=== PATIENT | female | born 1970 | race Two or more races ===

== ENCOUNTER → 2020-09-30 10:34 | Outpatient (BNVA) | payer OTHER, SELFPAY | PROVIDERS: PCP Internal Medicine; Referring Provider Internal Medicine; Visit Provider Surgery | DX: Z76.89 Persons encountering health services in other specified circumstances (principal) ==

== ENCOUNTER 2020-10-29 08:29 | Outpatient (REF) | payer OTHER, SELFPAY ==
[2020-10-29 09:51] LABS: MANUAL DIFF FLAG NO
[2020-10-29 09:55] LABS: Basophils Absolute Auto 0.1 X10*3/uL (0.0-0.2); Basophils Percent Auto 0.6 % (0-2); Eosinophils Absolute Auto 0.5 X10*3/uL (0.0-0.4); Eosinophils Percent Auto 5.4 % (0-4); Hematocrit 34.9 % (37-47); Hemoglobin 11.3 g/dl (12.0-16.0); Imm Gran Abs Auto 0.04 X10*3/uL (0.00-0.03); Imm Gran Pct Auto 0.4 % (0.0-0.4); Lymphocytes Absolute Auto 4.7 X10*3/uL (1.2-4.9); Lymphocytes Percent Auto 48.5 % (20-40); Mean Corpuscular HGB Conc 32.4 g/dl (31.0-35.0); Mean Corpuscular Hemoglobin 28.6 pg (27.0-33.0); Mean Corpuscular Volume 88.4 fL (80-98); Mean Platelet Volume 8.8 fL (9.4-12.3); Monocytes Absolute Auto 0.7 X10*3/uL (0.1-1.2); Monocytes Percent Auto 7.3 % (2-11); NRBC Pct Auto 0.5 /100WBC (0.0-0.2); Neutrophils Absolute Auto 3.7 X10*3/uL (2.0-8.3); Neutrophils Percent Auto 37.8 % (45-73); Platelet Count 408 X10*3/uL (160-400); Red Blood Count 3.95 X10*6/uL (4.20-5.50); White Blood Count 9.8 X10*3/uL (4.8-10.8)
[2020-10-29 10:05] LABS: Glucose Urine UA NEG (NEG); Leukocyte Esterase Urine TRACE (NEG); Nitrite Urine NEG (NEG); Specific Gravity - Urine >= 1.030 (1.005-1.025); Urine Blood 3+ (NEG); Urine Ketones NEG (NEG); Urine Protein NEG (NEG-TRACE)
[2020-10-29 10:08] LABS: Appearance Urine HAZY; Color Urine YELLOW
[2020-10-29 10:12] LABS: Bacteria Urine 1+ /LPF; Mucus Urine 3+ /LPF; Squamous Epithelial Cell Urine 2+ /LPF
[2020-10-29 10:31] LABS: Albumin Level 4.1 g/dL (3.5-5.0); Anion Gap 10 (12-20); Blood Urea Nitrogen 12 mg/dL (9-16); Calcium 9.1 mg/dL (8.4-10.2); Carbon Dioxide 32 mmol/L (22-29); Chloride 105 mmol/L (96-108); Estimated Glomerular Filt Rate > 60; Magnesium 1.9 mg/dL (1.6-2.6); Phosphorus 3.8 mg/dL (2.7-4.5); Potassium 4.5 mmol/l (3.3-5.1); Sodium 142 mmol/L (135-145)
[2020-10-29 10:34] LABS: Creatinine Urine 170.97 mg/dL; Microalbum/Creatinine Ratio Ur 45.6 ug/mg cr
[2020-10-29 10:35] LABS: Creatinine Urine 170.12 mg/dL; Protein/Creatinine Ratio, Ur 0.12 (<0.2); Total Protein Urine Random 21 mg/dL (<12)
[2020-10-29 10:50] LABS: Vitamin D 25-OH Total 26.8 ng/mL (>30)
[2020-10-29 11:55] LABS: Uric Acid 5.4 mg/dL (2.4-5.7)
[2020-10-29 14:20] LABS: Renal w Reflex Lab Use Only Order verified
[2020-10-30 18:43] LABS: Calcium (PTHI) 9.3 mg/dL (8.6-10.2); PTHI 41 pg/mL (14-64)
== END 2020-10-29 08:30 | disposition home or self-care (01) ==
LOC: HO.LAB 08:29
PROVIDERS: PCP Internal Medicine; Visit Provider Internal Medicine Nephrology
DX: E78.00 Pure hypercholesterolemia, unspecified (principal); R80.9 Proteinuria, unspecified; D64.9 Anemia, unspecified
CPT/HCPCS: 36415; 80051; 81001; 82040; 82043; 82306; 82310; 82565; 83735; 83970; 84100; 84156; 84520; 84550; 85025

== ENCOUNTER 2020-12-04 09:50 | Outpatient (REF) | payer OTHER, SELFPAY ==
[2020-12-04 11:03] LABS: Alanine Aminotransferase 12 U/L (0-31); Albumin Level 4.1 g/dL (3.5-5.0); Alkaline Phosphatase 45 U/L (39-117); Aspartate Amino Transferase 12 U/L (5-31); Bilirubin Direct < 0.2 mg/dL (0.0-0.5); Bilirubin Total 0.2 mg/dL (0.0-1.0)
[2020-12-13 19:32] LABS: JCV Antibody INDETERMINATE; JCV Index Value 0.23
[2020-12-13 19:57] LABS: JCV Ab Inhibition FINAL RSLT: NEGATIVE
== END 2020-12-04 09:51 | disposition home or self-care (01) ==
LOC: HO.LAB 09:50
PROVIDERS: PCP Internal Medicine; Visit Provider Psychiatry & Neurology Neurology
DX: G35 Multiple sclerosis (principal)
CPT/HCPCS: 36415; 80076; 86711

== ENCOUNTER 2020-12-18 10:21 | Outpatient (REF) | payer OTHER, SELFPAY ==
--- NOTE | 2020-12-18 10:26 | XR_ITS ---
EXAMINATION: XR ANKLE, LEFT CLINICAL INFORMATION: Pain in the left ankle COMPARISON: None TECHNIQUE: AP, lateral, and mortise views of the left ankle. FINDINGS: There is mild spurring along the tip of medial malleolus likely old injury. The ankle mortise and subtalar joints are normal. There is bimalleolar soft tissue swelling. No visible fracture or dislocation seen. There is a small calcaneal heel enthesophyte. The soft tissues are normal. XR/XR ankle LT 2V IMPRESSION: 1. Mild spurring along the tip of medial malleolus and a small calcaneal heel enthesophyte. No visible acute fracture, dislocation, or subluxation seen. 2. Mild bimalleolar soft tissue swelling likely ligamentous injury.
== END 2020-12-18 10:22 | disposition home or self-care (01) ==
LOC: HO.XRAY 10:21
PROVIDERS: PCP Internal Medicine; Visit Provider Internal Medicine
DX: M25.572 Pain in left ankle and joints of left foot (principal)
CPT/HCPCS: 73600

== ENCOUNTER 2020-12-25 14:20 | Outpatient (REF) | payer OTHER, SELFPAY | END 2020-12-25 14:21 | disposition home or self-care (01) | LOC: HO.LAB 14:20 | PROVIDERS: Visit Provider Internal Medicine | DX: Z20.822 Contact with and (suspected) exposure to COVID-19 (principal) | CPT/HCPCS: 36415; C9803; U0003 ==

== ENCOUNTER 2021-01-26 13:21 | Outpatient (REF) | payer OTHER, SELFPAY | END 2021-01-26 13:22 | disposition home or self-care (01) | LOC: HO.LAB 13:21 | PROVIDERS: Visit Provider Internal Medicine | DX: Z20.822 Contact with and (suspected) exposure to COVID-19 (principal) | CPT/HCPCS: 36415; C9803; U0003; U0005 ==

== ENCOUNTER 2021-03-04 14:12 | Outpatient (REF) | payer OTHER, SELFPAY | END 2021-03-04 14:13 | disposition home or self-care (01) | LOC: HO.LAB 14:12 | PROVIDERS: Visit Provider Internal Medicine | DX: Z20.822 Contact with and (suspected) exposure to COVID-19 (principal) | CPT/HCPCS: C9803; U0003; U0005 ==

== ENCOUNTER 2021-07-12 08:37 | Outpatient (REF) | payer OTHER, SELFPAY ==
[2021-07-12 09:37] LABS: Alanine Aminotransferase 12 U/L (0-31); Alkaline Phosphatase 39 U/L (39-117); Anion Gap 13 (12-20); Aspartate Amino Transferase 14 U/L (5-31); Bilirubin Total 0.4 mg/dL (0.0-1.0); Blood Urea Nitrogen 11 mg/dL (9-16); Calcium 9.3 mg/dL (8.4-10.2); Carbon Dioxide 25 mmol/L (22-29); Chloride 108 mmol/L (96-108); Cholesterol 122 mg/dL; Estimated Glomerular Filt Rate > 60; Glucose Fasting 98 mg/dL (60-99); HDL Cholesterol 37 mg/dL; LDL Cholesterol Calculated 73 mg/dl; Potassium 3.9 mmol/L (3.3-5.1); Sodium 142 mmol/L (135-145); Triglycerides 61 mg/dL
[2021-07-16 14:31] LABS: Vitamin D 25-OH, D2 <4 ng/mL; Vitamin D 25-OH, D3 25 ng/mL; Vitamin D 25-OH, Total 25 ng/mL (30-100)
== END 2021-07-12 08:38 | disposition home or self-care (01) ==
LOC: HO.LAB 08:37
PROVIDERS: PCP Internal Medicine; Visit Provider Internal Medicine
DX: M79.605 Pain in left leg (principal); E55.9 Vitamin D deficiency, unspecified; E78.5 Hyperlipidemia, unspecified
CPT/HCPCS: 36415; 80053; 80061; 82306

== ENCOUNTER 2021-10-12 20:48 | Emergency (ER) | payer OTHER, SELFPAY ==
--- NOTE | 2021-10-12 | ECG_ITS ---
Test Reason : chest pain Blood Pressure : / mmHG Vent. Rate : 064 BPM Atrial Rate : 064 BPM P-R Int : 138 ms QRS Dur : 076 ms QT Int : 428 ms P-R-T Axes : 058 013 032 degrees QTc Int : 441 ms Normal sinus rhythm with sinus arrhythmia RSR' or QR pattern in V1 suggests right ventricular conduction delay Otherwise normal ECG When compared with ECG of 08-AUG-2019 09:27, No significant change was found Referred By: Brea Reese Electronically Signed By:ALANA GAMBLE MD
[2021-10-12 21:02] VITALS: BP 127/75; PULSE 63; RESP 16; TEMP 36.8; O2SAT 99; BMI 42.5
[2021-10-12 22:08] VITALS: BP 110/71; PULSE 61; RESP 20; TEMP 36.8; O2SAT 100
--- NOTE | 2021-10-12 22:20 | PC.NURSE ---
Patient refused SRV , covid, flu swab. stated she only come in for chest pain, denies pain at this time say pain comes and goes. called hourly sign language interpreter for further in eval. MAYELIN ordonez order EKG.
--- NOTE | 2021-10-12 22:58 | PC.NURSE ---
PT STANDING IN HALLWAY YELLING IN [employer]CH[employer]IC STATING SHE WANTS TO LEAVE NOW, SHE DOESNT WANT TO STAY AND BE TAKEN CARE OF BY THIS DOCTOR. PT WAS ASKED MULTIPLE TIMES BY RN AND MS TO SIT IN ROOM TO SPEAK ABOUT HER CARE BUT PT REFUSED AND WALKED OUT UNWILLING TO ALLOW US TO RECTIFY THIS SITUATION FOR HER
== END 2021-10-12 23:06 | disposition left against medical advice (07) ==
PROVIDERS: Emergency Provider Emergency Medicine; PCP Internal Medicine
DX: R07.9 Chest pain, unspecified (principal); M79.602 Pain in left arm
CPT/HCPCS: 93005; 99283; 99284

== ENCOUNTER → 2022-01-05 14:44 | Outpatient (BNVA) | payer OTHER, SELFPAY | PROVIDERS: PCP Internal Medicine; Referring Provider Internal Medicine; Visit Provider Internal Medicine | DX: R07.89 Other chest pain (principal) | CPT/HCPCS: 99212 ==

== ENCOUNTER 2022-01-18 08:35 | Outpatient (REF) | payer OTHER, SELFPAY ==
[2022-01-18 10:27] LABS: Alanine Aminotransferase 13 U/L (0-31); Albumin Level 4.2 g/dL (3.5-5.0); Alkaline Phosphatase 45 U/L (39-117); Anion Gap 9 (12-20); Aspartate Amino Transferase 16 U/L (5-31); Bilirubin Total 0.7 mg/dL (0.0-1.0); Blood Urea Nitrogen 13 mg/dL (9-16); Calcium 9.5 mg/dL (8.4-10.2); Carbon Dioxide 30 mmol/L (22-29); Chloride 107 mmol/L (96-108); Cholesterol 128 mg/dL; Estimated Glomerular Filt Rate > 60; Glucose Fasting 95 mg/dL (60-99); HDL Cholesterol 42 mg/dL; LDL Cholesterol Calculated 75 mg/dl; Potassium 4.2 mmol/L (3.3-5.1); Sodium 142 mmol/L (135-145); Total Protein 7.2 g/dL (6.5-8.0); Triglycerides 57 mg/dL
[2022-01-18 10:28] LABS: Appearance Urine HAZY; Color Urine YELLOW; Glucose Urine UA NEG (NEG); Leukocyte Esterase Urine NEG (NEG); Nitrite Urine NEG (NEG); PH 5.5 (5.0-8.0); Specific Gravity - Urine >= 1.030 (1.005-1.025); Urine Blood NEG (NEG); Urine Ketones NEG (NEG); Urine Protein NEG (NEG-TRACE)
[2022-01-18 11:14] LABS: Creatinine Urine 238.71 mg/dL; Microalbum/Creatinine Ratio Ur 4.6 ug/mg cr
[2022-01-22 14:25] LABS: Vitamin D 25-OH, D2 <4 ng/mL; Vitamin D 25-OH, D3 27 ng/mL; Vitamin D 25-OH, Total 27 ng/mL (30-100)
== END 2022-01-18 08:36 | disposition home or self-care (01) ==
LOC: HO.LAB 08:35
PROVIDERS: PCP Internal Medicine; Visit Provider Internal Medicine
DX: G35 Multiple sclerosis (principal); E11.9 Type 2 diabetes mellitus without complications; R80.9 Proteinuria, unspecified; R30.0 Dysuria; E78.5 Hyperlipidemia, unspecified; E55.9 Vitamin D deficiency, unspecified
CPT/HCPCS: 36415; 80053; 80061; 81003; 82043; 82306

== ENCOUNTER 2022-01-25 08:46 | Outpatient (REF) | payer OTHER, SELFPAY ==
--- NOTE | 2022-01-25 17:47 | PFT_ITS ---
The patient was unable to perform slow vital capacity maneuver correctly, despite several attempts and different coaching methods. The patient was unable to perform pulmonary function test. IMPRESSION: Canceled pulmonary function test. MD ASPEN Grace/LARISA / [id number]
== END 2022-01-25 08:47 | disposition home or self-care (01) ==
LOC: HO.RESP 08:46
PROVIDERS: PCP Internal Medicine; Visit Provider Internal Medicine
DX: Z13.89 Encounter for screening for other disorder (principal)

== ENCOUNTER 2022-06-30 08:03 | Outpatient (REF) | payer OTHER, SELFPAY ==
--- NOTE | ~2022-06-30 | US_ITS ---
EXAMINATION: US ABDOMEN COMPLETE CLINICAL INFORMATION: Right upper quadrant pain. COMPARISON: Ultrasound abdomen complete 02/24/2020. Outside CT abdomen and pelvis noncontrast 10/26/2020 (RAYUS). TECHNIQUE: Real-time imaging of the abdominal viscera. FINDINGS: PANCREAS: The visualized pancreas is normal in size and contour and echogenicity. No peripancreatic ductal dilatation or retroperitoneal effusion. Portion pancreatic tail not completely imaged due to overlying bowel gas. ABDOMINAL AORTA: The proximal, mid, and distal segments are normal in caliber. INFERIOR VENA CAVA: Visualized portions are normal. LIVER: Liver is within limits of normal size and smooth in contour. Hepatic parenchymal echogenicity appears within normal. No focal hepatic parenchymal lesion or intrahepatic ductal dilatation. GALLBLADDER: Normal. The gallbladder is physiologically distended without evidence of stones, sludge, polyps, wall thickening or pericholecystic fluid. COMMON BILE DUCT: Normal in caliber measuring 0.3 cm in diameter. RIGHT KIDNEY: Normal. No hydronephrosis. No renal calculi or focal parenchymal lesions. The kidney measures 12.1 cm in maximum dimension. LEFT KIDNEY: Normal. No hydronephrosis. No renal calculi or focal parenchymal lesions. The kidney measures 11.9 cm in maximum dimension. SPLEEN: Normal. The spleen measures 7.9 cm in maximum dimension. FREE FLUID: None. US/US abdomen complete IMPRESSION: -No cholelithiasis or biliary ductal dilatation. -No hydronephrosis. -No ascites.
== END 2022-06-30 08:04 | disposition home or self-care (01) ==
LOC: HO.HMGCX 08:03
PROVIDERS: PCP Internal Medicine; Visit Provider Internal Medicine
DX: R10.11 Right upper quadrant pain (principal)
CPT/HCPCS: 76700

== ENCOUNTER 2022-12-05 08:15 | Outpatient (REF) | payer OTHER, SELFPAY ==
[2022-12-05 08:26] LABS: MANUAL DIFF FLAG NO
[2022-12-05 08:33] LABS: Basophils Absolute Auto 0.1 X10*3/uL (0.0-0.2); Basophils Percent Auto 0.7 % (0-2); Eosinophils Absolute Auto 0.5 X10*3/uL (0.0-0.4); Eosinophils Percent Auto 5.1 % (0-4); Hemoglobin 12.1 g/dl (12.0-16.0); Imm Gran Abs Auto 0.05 X10*3/uL (0.00-0.03); Imm Gran Pct Auto 0.5 % (0.0-0.4); Lymphocytes Absolute Auto 4.7 X10*3/uL (1.2-4.9); Lymphocytes Percent Auto 48.6 % (20-40); Mean Corpuscular HGB Conc 32.7 g/dl (31.0-35.0); Mean Corpuscular Hemoglobin 29.4 pg (27.0-33.0); Mean Corpuscular Volume 89.8 fL (80.0-98.0); Mean Platelet Volume 8.9 fL (9.4-12.3); Monocytes Absolute Auto 0.7 X10*3/uL (0.1-1.2); Monocytes Percent Auto 7.3 % (2-11); NRBC Pct Auto 0.2 /100WBC (0.0-0.2); Neutrophils Absolute Auto 3.6 x10*3/uL (2.0-8.3); Neutrophils Percent Auto 37.8 % (45-73); Platelet Count 360 X10*3/uL (160-400); Red Blood Count 4.12 X10*6/uL (4.20-5.50); Red Cell Distribution Width 14.6 % (11.0-16.0); White Blood Count 9.6 X10*3/uL (4.8-10.8)
[2022-12-05 09:04] LABS: Alanine Aminotransferase 13 U/L (0-31); Albumin Level 4.3 g/dL (3.5-5.0); Alkaline Phosphatase 46 U/L (39-117); Aspartate Amino Transferase 16 U/L (5-31); Bilirubin Direct 0.2 mg/dL (0.0-0.5); Bilirubin Total 0.5 mg/dL (0.0-1.0); Cholesterol 172 mg/dL; HDL Cholesterol 44 mg/dL; Iron 86 mcg/dL (30-160); LDL Cholesterol Calculated 116 mg/dl; Percent Iron Saturation 26 % (15-50); Total Iron Binding Capacity 330 mcg/dL (228-428); Total Protein 7.4 g/dL (6.5-8.0); Triglycerides 63 mg/dL; Unsaturated Iron Binding 244 ug/dL
[2022-12-05 09:20] LABS: Vitamin D 25-OH Total 28.7 ng/mL (>30)
== END 2022-12-05 08:16 | disposition home or self-care (01) ==
LOC: HO.LAB 08:15
PROVIDERS: PCP Internal Medicine; Visit Provider Internal Medicine
DX: R10.11 Right upper quadrant pain (principal); D64.9 Anemia, unspecified; E55.9 Vitamin D deficiency, unspecified; E78.5 Hyperlipidemia, unspecified
CPT/HCPCS: 36415; 80061; 80076; 82306; 83540; 85025

== ENCOUNTER 2023-03-27 08:17 | Outpatient (REF) | payer OTHER, SELFPAY ==
[2023-03-27 08:29] LABS: MANUAL DIFF FLAG NO
[2023-03-27 08:42] LABS: Basophils Absolute Auto 0.1 X10*3/uL (0.0-0.2); Basophils Percent Auto 0.5 % (0-2); Eosinophils Absolute Auto 0.6 X10*3/uL (0.0-0.4); Eosinophils Percent Auto 5.5 % (0-4); Hematocrit 35.6 % (37.0-47.0); Hemoglobin 11.7 g/dl (12.0-16.0); Imm Gran Abs Auto 0.02 X10*3/uL (0.00-0.03); Imm Gran Pct Auto 0.2 % (0.0-0.4); Lymphocytes Absolute Auto 4.6 X10*3/uL (1.2-4.9); Mean Corpuscular HGB Conc 32.9 g/dl (31.0-35.0); Mean Corpuscular Hemoglobin 29.7 pg (27.0-33.0); Mean Corpuscular Volume 90.4 fL (80.0-98.0); Mean Platelet Volume 9.6 fL (9.4-12.3); Monocytes Percent Auto 8.5 % (2-11); NRBC Pct Auto 0.2 /100WBC (0.0-0.2); Neutrophils Absolute Auto 4.9 x10*3/uL (2.0-8.3); Neutrophils Percent Auto 44.3 % (45-73); Platelet Count 306 X10*3/uL (160-400); Red Blood Count 3.94 X10*6/uL (4.20-5.50); Red Cell Distribution Width 14.6 % (11.0-16.0); White Blood Count 11.1 X10*3/uL (4.8-10.8)
[2023-03-27 10:07] LABS: Iron 76 mcg/dL (30-160); Percent Iron Saturation 31 % (15-50); Total Iron Binding Capacity 248 mcg/dL (228-428); Unsaturated Iron Binding 172 ug/dL; Vitamin D 25-OH Total 41.3 ng/mL (>30)
== END 2023-03-27 08:18 | disposition home or self-care (01) ==
LOC: HO.LAB 08:17
PROVIDERS: PCP Internal Medicine; Visit Provider Internal Medicine
DX: E66.01 Morbid (severe) obesity due to excess calories (principal); E55.9 Vitamin D deficiency, unspecified; D64.9 Anemia, unspecified
CPT/HCPCS: 36415; 82306; 83540; 84443; 85025

== ENCOUNTER 2023-03-28 12:36 | Outpatient (REF) | payer OTHER, SELFPAY ==
--- NOTE | ~2023-03-28 | MR_ITS ---
MRI OF THE BRAIN WITHOUT IV CONTRAST INDICATION: Multiple sclerosis. COMPARISON: Brain MRI 05/18/2018. TECHNIQUE: Multiplanar multisequence MR imaging of the brain was obtained without IV contrast. FINDINGS: Stable pattern extensive lesional burden throughout the supratentorial and infratentorial white matter compatible with the history of multiple sclerosis. No new lesions. Multiple chronic low T1 signal intensity lesions. There is no hydrocephalus, extra-axial surface collection, or herniation. The major flow voids at the skull base are preserved. There is no acute infarct on diffusion-weighted imaging. There is no intracranial hemorrhage on the gradient recalled echo acquisition. The cerebellar tonsils are normally positioned. The craniocervical junction is normal. Osseous marrow signal intensity is homogenous. The visualized soft tissues are unremarkable. MR/MR head/brain wo con IMPRESSION: Stable pattern extensive lesional burden throughout the supratentorial and infratentorial white matter compatible with the history of multiple sclerosis. No new lesions.
== END 2023-03-28 12:37 | disposition home or self-care (01) ==
LOC: HO.MRI 12:36
PROVIDERS: PCP Internal Medicine; Visit Provider Psychiatry & Neurology Neurology
DX: G35 Multiple sclerosis (principal)
CPT/HCPCS: 70551

== ENCOUNTER → 2023-04-07 12:36 | Outpatient (BNVA) | payer OTHER, SELFPAY | PROVIDERS: PCP Internal Medicine; Visit Provider Nurse Practitioner Family | DX: Z12.11 Encounter for screening for malignant neoplasm of colon (principal) | CPT/HCPCS: 99202 ==

== ENCOUNTER 2023-05-08 12:28 | Outpatient (REF) | payer OTHER, SELFPAY ==
--- NOTE | ~2023-05-08 | US_ITS ---
EXAMINATION: US THYROID CLINICAL INFORMATION: Nontoxic goiter, unspecified. COMPARISON: None available. TECHNIQUE: Linear transducer grayscale and color Doppler examination with attention to the region of the thyroid. FINDINGS: SIZE: Measurements of the thyroid lobes and nodules are given in sagittal, anteroposterior and transverse dimensions respectively. Right Thyroid Lobe: 5.0 x 2.1 x 1.5 cm, volume 8.5 mL. Parenchyma: The gland echotexture is homogeneous. Thyroid vascularity is normal. Left Thyroid Lobe: 4.4 x 1.4 x 1.3 cm, volume 4.2 mL. Parenchyma: The gland echotexture is homogeneous. Thyroid vascularity is normal. Isthmus: 0.3 cm in maximum AP dimension. Estimated total number of nodules greater than or equal to 1 cm: 0. Double Cutter nodules are described as follows: 1. Location: Left midpole. Size: 0.2 x 0.1 x 0.2 cm, volume 0.002 mL. Nodule characteristics: Composition: Mixed cystic and solid (1). Echogenicity: Isoechoic (1). Shape: Not taller than wide (0). Margins: Smooth (0). Echogenic Foci: None (0). ACR TI-RADS total points: 2. ACR TI-RADS category: 2. NODES: No lymphadenopathy is seen in the tissue surrounding the thyroid gland. US/US thyroid IMPRESSION: Solitary nonsuspicious nodule left lobe. Otherwise unremarkable thyroid ultrasound. ACR TI-RADS RECOMMENDATION REFERENCE: Ultrasound-guided fine-needle aspiration, followup ultrasound, no further followup. * TR1 (0 point) and TR2 (2 points): No FNA or follow up * TR3 (3 points): FNA if more than or equal to 2.5 cm in maximum dimension, followup ultrasound in 1, 3 and 5 years if 1.5 to 2.4 cm in maximum dimension. * TR4 (4-6 points): FNA if more than or equal to 1.5 cm in maximum dimension, followup ultrasound in 1, 2, 3 and 5 years if 1 to 1.4 cm in maximum dimension. * TR5 (more than or equal to 7 points): FNA if more than or equal to 1 cm in maximum dimension, followup ultrasound every year for 5 years if 0.5 to 0.9 cm in maximum dimension. * TR3, TR4 or TR5 nodules that are below the size threshold for follow up receive no followup.
== END 2023-05-08 12:29 | disposition home or self-care (01) ==
LOC: HO.US 12:28
PROVIDERS: Visit Provider Internal Medicine
DX: E04.9 Nontoxic goiter, unspecified (principal)
CPT/HCPCS: 76536

== ENCOUNTER 2023-08-24 09:09 | Outpatient (REF) | payer OTHER, SELFPAY ==
[2023-08-24 11:07] LABS: Rheumatoid Factor < 13.0 IU/mL (<15.0)
[2023-08-24 11:18] LABS: Alanine Aminotransferase 13 U/L (0-31); Albumin Level 4.1 g/dL (3.5-5.0); Alkaline Phosphatase 63 U/L (39-117); Aspartate Amino Transferase 14 U/L (5-31); Bilirubin Direct 0.2 mg/dL (0.0-0.5); Bilirubin Total 0.4 mg/dL (0.0-1.0); Total Protein 7.3 g/dL (6.5-8.0)
[2023-08-24 11:30] LABS: Alanine Aminotransferase 14 U/L (0-31); Albumin Level 4.1 g/dL (3.5-5.0); Alkaline Phosphatase 61 U/L (39-117); Anion Gap 15 (12-20); Aspartate Amino Transferase 14 U/L (5-31); Bilirubin Total 0.5 mg/dL (0.0-1.0); Blood Urea Nitrogen 13 mg/dL (9-16); Calcium 9.6 mg/dL (8.4-10.2); Carbon Dioxide 27 mmol/L (22-29); Chloride 104 mmol/L (96-108); Cholesterol 107 mg/dL (<200); Estimated Glomerular Filt Rate > 60; Glucose Fasting 83 mg/dL (60-99); HDL Cholesterol 31 mg/dL (>40); LDL Cholesterol Calculated 65 mg/dL (<100); Potassium 4.1 mmol/L (3.3-5.1); Sodium 142 mmol/L (135-145); Total Protein 7.4 g/dL (6.5-8.0); Triglycerides 57 mg/dL (<150)
[2023-08-28 16:44] LABS: Cyclic Citrullinated Peptide <16 UNITS
[2023-08-29 08:34] LABS: Anti Nuclear Antibody Screen NEGATIVE (NEGATIVE)
== END 2023-08-24 09:10 | disposition home or self-care (01) ==
LOC: HO.LAB 09:09
PROVIDERS: Absent Provider Internal Medicine; PCP Internal Medicine; Visit Provider Psychiatry & Neurology Neurology
DX: G35 Multiple sclerosis (principal); M25.50 Pain in unspecified joint; J45.30 Mild persistent asthma, uncomplicated; E55.9 Vitamin D deficiency, unspecified; E78.5 Hyperlipidemia, unspecified
CPT/HCPCS: 36415; 80053; 80061; 80076; 82248; 82306; 86038; 86200; 86431

== ENCOUNTER 2023-10-04 07:57 | Outpatient (REF) | payer OTHER, SELFPAY ==
--- NOTE | ~2023-10-04 | XR_ITS ---
EXAMINATION:XR cervical spine 2V CLINICAL INFORMATION: Cervalgia COMPARISON: 2018 TECHNIQUE: 3 views of the cervical spine were obtained. Frontal lateral and open-mouth odontoid view FINDINGS: 7 cervical vertebrae identified maintaining normal height loss of normal cervical lordosis probably spasm.. Narrowing of intervertebral disc spaces at C5-C6 and C6-C7 suggests underlying moderate degenerative disc disease. No prevertebral soft tissue swelling. Surrounding soft tissue and included lung apices are clear. Central line catheter projecting over the upper mediastinum at the margin of the study. Not fully included. Included lung apices are clear. XR/XR cervical spine 2V IMPRESSION: * No fracture. * Narrowing of intervertebral disc spaces suggest underlying degenerative disc disease. * Loss of normal cervical lordosis probably spasm. * Central line catheter in place.
== END 2023-10-04 07:58 | disposition home or self-care (01) ==
LOC: HO.XRAY 07:57
PROVIDERS: PCP Internal Medicine; Visit Provider Internal Medicine
DX: M54.2 Cervicalgia (principal)
CPT/HCPCS: 72040

== ENCOUNTER 2023-10-31 12:54 | Outpatient (AMB) | payer OTHER, SELFPAY ==
[2023-10-31 13:13] VITALS: BP 110/68; BMI 35.2
--- NOTE | 2023-10-31 13:13 | A.OFFPC_ITS ---
Vital Signs 10/31/23 13:13 Height 5 ft 3 in Weight 199 lb BMI 35.2 BP 110/68 Blood Pressure Location Lt brachial Position Sitting Intake Visit Reasons: ms Intake Note: Patient here for a follow up MS Material Clerk Required: No Accompanied by: Self / Same As Patient Allergies Iodinated Contrast Media [IV CONTRAST] Allergy (Severe, Verified 10/31/23 13:40) ANAPHYLAXIS aspirin [ASPIRIN] Allergy (Intermediate, Verified 10/31/23 13:40) ITCH, rash naproxen [From NAPROSYN] Allergy (Intermediate, Verified 10/31/23 13:40) ITCHINESS bupropion Adverse Reaction (Unknown, Verified 10/31/23 13:40) unknown memantine Adverse Reaction (Unknown, Verified 10/31/23 13:40) unknown Medication List - Last Reconciled 10/31/23 by Palmira Sutton MD albuterol sulfate 2.5 mg (3 mL) inhalation Q4-6H PRN 30 days atorvastatin 20 mg PO DAILY bupropion HCl 150 mg PO QAM 90 days [cannabis PO] fluoxetine 20 mg PO DAILY 90 days fluticasone propionate 50 mcg/actuation (Flonase Allergy Relief) 1 spray intranasal BID 30 days ketoconazole 2% 1 appl topical 2XW 30 days natalizumab 300 mg IV Q4W nebulizers (AeroEclipse II Nebulizer) As directed oxycodone 10 mg PO Q8H PRN 30 days pantoprazole 40 mg PO DAILY selenium sulfide 2.3% 1 appl topical QWEEK 30 days simethicone 160 mg PO BID terbinafine HCl 250 mg PO DAILY 90 days triamcinolone acetonide 0.5% 1 appl topical BID PRN 30 days ursodiol 300 mg PO BID Ventolin HFA 90 mcg/actuation (albuterol sulfate) 2 puffs inhalation Q6H PRN 30 days NS Tobacco use date assessed: 12/05/22 Dental Screening Dental Screen Date: 10/31/23 Did you have a dental visit in the last 12 months?: Yes Did you have a dental problem in the last 6 months where you did not have access to dental care?: No Was dental information given to patient?: Patient has dentist HPI HPI Comments History of Present Illness Details This is a 52-year-old female with mild recurrent major depression, multiple sclerosis, hyperlipidemia and lumbar degenerative disc disease that c omes today complaining of memory loss that has been present for over 6 months. She saw Neurology which prescribed memantine but she develop a rash. Bupropion had inadequate response on her depression and with started her on fluoxetine 20 mg which she has been on it for over a month. I will increase fluoxetine to 40 mg. Multiple sclerosis is stable with Tysarbi infusion. Last cholesterol was w ell control and this will be repeated in 6 months. Chronic back pain is stable with oxycodone as needed. Pill count today was adequate showing 96 pills. [facility] Medical History (Updated 10/31/23 @ 13:49 by Palmira Sutton MD) Hypovitaminosis D Mild recurrent major depression Abnormal EKG Bronchitis Morbid obesity Left leg pain Shortness of breath COVID-19 Microalbuminuria Multiple sclerosis Left ankle pain Lumbar degenerative disc disease Surgical History History of sleeve gastrectomy H/O colonoscopy S/P excision of ganglion cyst History of gastric surgery Family History Father Prostate cancer Colon cancer Mother CAD (coronary artery disease) Son No problems noted. Son No problems noted. Son No problems noted. Daughter No problems noted. Social History Housing: Apartment Alcohol intake: never Patient Tobacco Use Status: Never used Tobacco e-Cigarette/Vaping Use: Never Used Second Hand Smoke Exposure: No service: No Current occupational status: disabled Cognitive needs: No Hearing needs: No Vision needs: No Questionnaire Thrive Questionnaire Date Thrive assessed: 12/05/22 ABDIEL-7 AMB Questionnaire ABDIEL-7 Date ABDIEL - 7 assessed: 12/05/22 Source: Developed by Drs. Emil Newell, Shayy Ruiz, Hebert Sotelo and colleagues, with an educational colt from [employer]. Review of Systems Const All systems reviewed & are unremarkable except as noted in HPI and below Eyes Reports no additional complaints, Denies change in vision and Denies other visual disturbances Card Denies chest pain at rest, Denies chest pain with activity, Denies edema, Denies irregular heart rhythm, Denies claudication, Denies dyspnea, Denies dyspnea on exertion, Denies orthopnea, Denies paroxysmal nocturnal dyspnea and Denies slow heart rate Resp Denies cough, Denies dyspnea and Denies dyspnea on exertion GI Denies abdominal pain, Denies change in bowel habits, Denies excessive flatus, Denies nausea and Denies vomiting Denies urinary incontinence, Denies urinary hesitancy and Denies urinary urgency Musc Denies abnormal gait, Denies atrophy, Denies deformity and Denies limited range of motion Skin/Breast Denies bleeding lesions, Denies changing lesions and Denies rash Neuro Denies abnormal gait and Denies lack of coordination Psych Reports anxiety and Reports depression Physical exam (Primary Care) Vital Signs: Last Vital Signs BP 110/68 10/31/23 13:13 BMI result Body Mass Index 35.2 Tobacco/Smoking Status: Tobacco use Status Tobacco use date assessed 12/05/22 10/31/23 13:17 Patient Tobacco Use Status Never used Tobacco 10/31/23 13:17 e-Cigarette/Vaping Use Never Used 10/31/23 13:17 Thrive Assessment: Date of Thrive Assessment Date Thrive assessed 12/05/22 10/31/23 13:17 Const Orientation/consciousness: patient oriented x3 Eyes General: appearance normal, both eyes and all related structures Eyelids: Yes eyelids normal Conjunctivae: conjunctivae normal Neck Neck: Yes normal visual inspection and Yes supple Resp Effort & Inspection: normal respiratory effort Auscultation: clear to auscultation bilaterally Cardio Jugular venous distension: no JVD Rate: regular rate Rhythm: regular rhythm Heart sounds: S1 normal heart sound present and S2 normal heart sound present Neuro General: patient oriented x3 and no focal motor deficits Extrem General: Yes full ROM Office Procedures Flu Questionnaire Does the patient have a severe egg allergy?: No Does the patient have severe life threatening allergies?: No Does the patient have a fever or illness today?: No Has the patient ever had Guillain-[place] Syndrome?: No Has the patient ever had any past reaction to a flu shot?: No Immunizations flu vacc [id number] 6mos up(PF) 60 mcg(15 mcgx4)/0.5 mL IM syringe Performing Provider: Palmira Sutton MD Performing Location: [facility] Administered by: HELENE Bond on 10/31/23 14:00 Dose Route Admin Location Dispensed Lot Number Expiration Date NDC Book Editor 0.5 mL IM Right Deltoid 0.5 mL [id number] 05/26/24 29552-106-52 [employer] VIS Given Date VIS Provided VIS Publication Date 10/31/23 Single Vaccine 21 Eligibility Eligibility Date Funding Source Not [facility] Eligible 10/31/23 Private Assessment and Plan Assessment & Plan (1) Multiple sclerosis: Code(s): G35 - Multiple sclerosis Plan: Continue Tysabri. (2) HLD (hyperlipidemia): Code(s): E78.5 - Hyperlipidemia, unspecified Qualifiers: Hyperlipidemia type: pure hypercholesterolemia Qualified Code(s): E78.00 - Pure hypercholesterolemia, unspecified Plan: Continue statins. (3) Lumbar degenerative disc disease: Code(s): M51.36 - Other intervertebral disc degeneration, lumbar region Plan: Continue oxycodone as needed. (4) Mild recurrent major depression: Code(s): F33.0 - Major depressive disorder, recurrent, mild Plan: Discontinue bupropion. Increase fluoxetine to 40 mg once a day. Orders: Orders Influenza [id number] Immunization Today Z23 - Encounter for immunization Comprehensive [place]. Panel Fast 6 Months R41.3 - Other amnesia Lipid Panel 6 Months E78.5 - Hyperlipidemia, unspecified Vitamin D 25-OH Total 6 Months E55.9 - Vitamin D deficiency, unspecified Vitamin B12 and Folate 6 Months E53.8 - Deficiency of other specified B group vitamins Referrals Neurology Referral R41.3 - Other amnesia Medications: New fluoxetine 40 mg PO DAILY 90 caps 1RF 90 days Discontinued fluoxetine Discontinued Reason: Patient Completed Course 20 mg PO DAILY 90 days 90 caps 1RF bupropion HCl Discontinued Reason: Patient Refused 150 mg PO QAM 90 days 90 tabs 1RF Coding Level of Care Code Est Pt Level 4 (97893) Diagnoses Multiple sclerosis G35 Pure hypercholesterolemia E78.00 Hyperlipidemia type: pure hypercholesterolemia Lumbar degenerative disc disease M51.36 Mild recurrent major depression F33.0 Time Spent (min) 24
== END 2023-10-31 14:01 | disposition home or self-care (01) ==
PROVIDERS: PCP Internal Medicine; Visit Provider Internal Medicine
DX: G35 Multiple sclerosis (principal); E78.00 Pure hypercholesterolemia, unspecified; M51.36 Other intervertebral disc degeneration, lumbar region; F33.0 Major depressive disorder, recurrent, mild; Z23 Encounter for immunization
CPT/HCPCS: 90471; 90686; 99214

== ENCOUNTER 2024-01-19 14:20 | Outpatient (AMB) | payer OTHER, SELFPAY ==
[2024-01-19 14:37] VITALS: BP 135/77; BMI 34.9
--- NOTE | 2024-01-19 14:37 | MHC.OFFVIS ---
Intake Vital Signs 01/19/24 14:37 Height 5 ft 3 in Weight 197 lb BMI 34.9 BP 135/77 Blood Pressure Location Rt brachial Position Sitting Intake Visit Reasons: colo results Intake Note: Patient states she has acid reflex occasionally no stool changes or other GI concerns. Surgical Device Sales Representative Required: No Accompanied by: Daughter Allergies Iodinated Contrast Media [IV CONTRAST] Allergy (Severe, Verified 01/19/24 14:40) ANAPHYLAXIS aspirin [ASPIRIN] Allergy (Intermediate, Verified 01/19/24 14:40) ITCH, rash naproxen [From NAPROSYN] Allergy (Intermediate, Verified 01/19/24 14:40) ITCHINESS bupropion Adverse Reaction (Unknown, Verified 01/19/24 14:40) unknown memantine Adverse Reaction (Unknown, Verified 01/19/24 14:40) unknown HPI colo results HPI Details LAST VISIT: 04/07/2023 Screen for colon cancer Patient denies any GI, cardiac or respiratory symptoms.? Denies any issues with anesthesia in the past.? Denies any history of sleep apnea.? No history infectious diseases in the past or present.? Not on any anticoagulation therapy.? No family or personal history of colon cancer. Patient denies melena, hematochezia, unintentional weight loss or ribbon like stools.? Discussed at length the pre-procedure,? prep, diet & medications as well as what to expect prior, during and after the procedure.?? Stressed the importance of good bowel prep. ?Recommended the use of Vaseline or Calmoseptine OTC & baby wipes with bowel movements to promote comfort.? ?Patient verbalizes understanding and agrees to plan of care.? She was given the opportunity to ask questions and all questions answered.? We will see her after the procedure.? TODAY'S VISIT Patient is here today accompanied by her daughter in-law who is helping translate. Patient's uepgyhtf-yt-out reports that patient has been dealing with dementia, being very forgetful. Patient had colonoscopy on the 27 of December and has not shown. Patient denies any changes since the last visit. Denies any melena, hematochezia, unintentional weight loss or ribbon like stools. Reports that she is moving her bowels well. Occasional acid reflux depending on the food that she eats. Patient denies any cardiac or respiratory symptoms [facility] Medical History (Updated 10/31/23 @ 13:49 by Palmira Sutton MD) Hypovitaminosis D Mild recurrent major depression Abnormal EKG Bronchitis Morbid obesity Left leg pain Shortness of breath COVID-19 Microalbuminuria Multiple sclerosis Left ankle pain Lumbar degenerative disc disease Surgical History History of sleeve gastrectomy H/O colonoscopy S/P excision of ganglion cyst History of gastric surgery Family History Father Prostate cancer Colon cancer Mother CAD (coronary artery disease) Son No problems noted. Son No problems noted. Son No problems noted. Daughter No problems noted. Social History Housing: Apartment Alcohol intake: never Patient Tobacco Use Status: Never used Tobacco e-Cigarette/Vaping Use: Never Used Second Hand Smoke Exposure: No service: No Current occupational status: disabled Cognitive needs: No Hearing needs: No Vision needs: No Review of Systems Const Denies weight gain and Denies weight loss ENT Reports no additional complaints, Denies dysphagia and Denies odynophagia Card Reports no additional complaints Resp Reports no additional complaints GI Denies abdominal pain, Denies belching, Denies melena, Denies bloating, Denies change in bowel habits, Denies dysphagia, Denies excessive flatus, Denies dyspepsia, Denies heartburn, Denies diarrhea, Denies loose stools, Denies nausea, Denies odynophagia and Denies vomiting Musc Reports no additional complaints Neuro Reports no additional complaints Psych Reports no additional complaints Endo Reports no additional complaints Physical Exam Vital Signs: Last Vital Signs BP 135/77 01/19/24 14:37 BMI result Body Mass Index 34.9 Const General: healthy appearing, no acute distress and well developed Nutritional Appearance: obese Resp Effort & Inspection: normal respiratory effort, able to speak in complete sentences, no tracheal deviation and symmetric chest movement Auscultation: clear to auscultation bilaterally Cardio Rate: regular rate GI Inspection: Yes normal to inspection, No distended and Yes obesity Palpation (GI): Soft to palpation, not firm, nontender and No hepatosplenomegaly present Auscultation: normal bowel sounds General: Yes no CVA tenderness Back/Spine/Pelvis Back: no CVA tenderness Skin General skin exam: elasticity normal, turgor normal and dry skin Psych Appearance: grossly normal Mental Status: mental status grossly normal Assessment & Plan Assessment & Plan (1) Screen for colon cancer: Code(s): Z12.11 - Encounter for screening for malignant neoplasm of colon Plan Will book procedure today. Patient's xqlxtyug-wd-mer will stay with her day before procedure and the morning of the procedure and will bring her to the hospital. Patient's bidsycwu-jk-zst states that she gets forgetful, early onset Alzheimer/dementia. Patient denies any cardiac or respiratory symptoms. Not on any anticoagulation medication. No history of sleep apnea. History of asthma using albuterol on as needed basis. What to expect before during and after procedure discussed with patient. Stressed the importance of clear liquid diet and good bowel prep day before the procedure. I will see patient after the procedure, sooner on as needed basis. Patient is agreeable to this plan and verbalizes understanding of instructions. She was given the opportunity to ask questions and all questions answered. Thank you for allowing me to participate in her care Coding Level of Care Code Est Pt Level 3 (01976) Diagnoses Screen for colon cancer Z12.11 Time Spent (min) 30 Comment 20 minutes spent with patient and additional 10 minutes spent reviewing her records
== END 2024-01-19 15:42 | disposition home or self-care (01) ==
PROVIDERS: PCP Internal Medicine; Visit Provider Nurse Practitioner Family
DX: Z12.11 Encounter for screening for malignant neoplasm of colon (principal); Z01.818 Encounter for other preprocedural examination
CPT/HCPCS: 99213

== ENCOUNTER → 2024-01-19 14:20 | Outpatient (BNVA) | payer OTHER, SELFPAY | PROVIDERS: PCP Internal Medicine; Visit Provider Nurse Practitioner Family | DX: Z12.11 Encounter for screening for malignant neoplasm of colon (principal) | CPT/HCPCS: 99212 ==

== ENCOUNTER 2024-04-18 08:09 | Outpatient (AMB) | payer OTHER, SELFPAY ==
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
[2024-04-18 08:13] VITALS: BP 110/70; PULSE 75; RESP 16; O2SAT 98; BMI 35.3
== END 2024-04-18 09:03 | disposition home or self-care (01) ==
PROVIDERS: PCP Internal Medicine; Visit Provider Psychiatry & Neurology Neurology
DX: R41.3 Other amnesia (principal); R06.83 Snoring; G47.00 Insomnia, unspecified; G47.10 Hypersomnia, unspecified; G43.E09 Chronic migraine with aura, not intractable, without status migrainosus; M54.2 Cervicalgia
CPT/HCPCS: 99204; G2211

== ENCOUNTER → 2024-04-18 08:09 | Outpatient (BNVA) | payer OTHER, SELFPAY | PROVIDERS: PCP Internal Medicine; Visit Provider Psychiatry & Neurology Neurology | DX: R41.3 Other amnesia (principal); G47.00 Insomnia, unspecified; G47.10 Hypersomnia, unspecified; G43.E09 Chronic migraine with aura, not intractable, without status migrainosus; R06.83 Snoring; M54.2 Cervicalgia | CPT/HCPCS: 99202 ==

== ENCOUNTER 2024-04-18 09:03 | Outpatient (REF) | payer OTHER, SELFPAY ==
[2024-04-18 17:29] LABS: MANUAL DIFF FLAG NO
[2024-04-18 17:34] LABS: Basophils Absolute Auto 0.1 X10*3/uL (0.0-0.2); Basophils Percent Auto 0.8 % (0-2); Eosinophils Absolute Auto 0.7 X10*3/uL (0.0-0.4); Eosinophils Percent Auto 7.1 % (0-4); Hematocrit 33.5 % (37.0-47.0); Imm Gran Abs Auto 0.03 X10*3/uL (0.00-0.03); Imm Gran Pct Auto 0.3 % (0.0-0.4); Lymphocytes Absolute Auto 3.9 X10*3/uL (1.2-4.9); Mean Corpuscular HGB Conc 32.8 g/dl (31.0-35.0); Mean Corpuscular Hemoglobin 30.1 pg (27.0-33.0); Mean Corpuscular Volume 91.5 fL (80.0-98.0); Mean Platelet Volume 9.4 fL (9.4-12.3); Monocytes Absolute Auto 1.1 X10*3/uL (0.1-1.2); Monocytes Percent Auto 11.6 % (2-11); NRBC Pct Auto 0.2 /100WBC (0.0-0.2); Neutrophils Absolute Auto 3.4 x10*3/uL (2.0-8.3); Neutrophils Percent Auto 37.2 % (45-73); Platelet Count 329 X10*3/uL (160-400); Red Blood Count 3.66 X10*6/uL (4.20-5.50); White Blood Count 9.2 X10*3/uL (4.8-10.8)
[2024-04-18 18:08] LABS: Alanine Aminotransferase 37 U/L (0-31); Albumin Level 3.9 g/dL (3.5-5.0); Alkaline Phosphatase 66 U/L (39-117); Anion Gap 14 (12-20); Aspartate Amino Transferase 38 U/L (5-31); Bilirubin Total 0.4 mg/dL (0.0-1.0); Blood Urea Nitrogen 12 mg/dL (9-16); Calcium 9.2 mg/dL (8.4-10.2); Carbon Dioxide 28 mmol/L (22-29); Chloride 107 mmol/L (96-108); Estimated Glomerular Filt Rate > 60; Glucose Random 92 mg/dL (60-115); Potassium 3.5 mmol/L (3.3-5.1); Sodium 145 mmol/L (135-145)
[2024-04-18 18:14] LABS: Erythrocyte Sedimentation Rate 20 MM/HR (0-20)
[2024-04-18 18:23] LABS: TSH reflex Free T4 0.83 uIU/mL (0.32-4.0)
[2024-04-18 18:32] LABS: Folate 8.9 ng/mL (> or = 4.0); Vitamin B12 458 pg/mL (200-900)
[2024-04-22 14:38] LABS: Vitamin D 25-OH, D2 <4 ng/mL; Vitamin D 25-OH, D3 23 ng/mL; Vitamin D 25-OH, Total 23 ng/mL (30-100)
== END 2024-04-18 09:04 | disposition home or self-care (01) ==
LOC: HO.HKASLDS 09:03
PROVIDERS: Visit Provider Psychiatry & Neurology Neurology
DX: R41.3 Other amnesia (principal)
CPT/HCPCS: 36415; 80053; 82306; 82607; 82746; 84443; 85025; 85652

== ENCOUNTER 2024-05-07 10:06 | Outpatient (REF) | payer OTHER, SELFPAY ==
[2024-05-07 12:22] LABS: Alanine Aminotransferase 18 U/L (0-31); Alkaline Phosphatase 62 U/L (39-117); Aspartate Amino Transferase 15 U/L (5-31); Bilirubin Direct 0.2 mg/dL (0.0-0.5); Bilirubin Total 0.4 mg/dL (0.0-1.0)
[2024-05-07 19:00] LABS: Amphetamine Screen Urine Not Detected (Not Detect); Barbiturates, Urine Not Detected (Not Detect); Benzodiazepines Screen Urine Not Detected (Not Detect); Buprenorphine Scr Not Detected (Not Detect); Cannabinoid Screen Urine POSITIVE (Not Detect); Cocaine Screen Urine Not Detected (Not Detect); Fentanyl, urine Not Detected (Not Detect); Methadone Screen, Urine Not Detected (Not Detect); Opiate Screen Urine Not Detected (Not Detect); Oxycodone Screen Urine Positive (Not Detect); Phencyclidine Screen Urine Not Detected (Not Detect)
[2024-05-13 10:37] LABS: Codeine, Ur NEGATIVE; Hydrocodone, Ur NEGATIVE; Hydromorphone, Ur NEGATIVE; Morphine, Ur NEGATIVE; Norhydrocodone, Ur NEGATIVE
== END 2024-05-07 10:07 | disposition home or self-care (01) ==
LOC: HO.LAB 10:06
PROVIDERS: Absent Provider Psychiatry & Neurology Neurology; PCP Internal Medicine; Visit Provider Internal Medicine
DX: G35 Multiple sclerosis (principal); F11.90 Opioid use, unspecified, uncomplicated
CPT/HCPCS: 36415; 80076; 80307; 80365; G0480

== ENCOUNTER 2024-05-07 11:04 | Outpatient (AMB) | payer OTHER, SELFPAY ==
[2024-05-07 11:14] VITALS: BP 112/76; BMI 35.2
--- NOTE | 2024-05-07 11:14 | A.OFFPC_ITS ---
Vital Signs 05/07/24 11:14 Height 5 ft 3 in Weight 199 lb BMI 35.2 BP 112/76 Blood Pressure Location Lt brachial Position Sitting Intake Visit Reasons: Annual Exam Intake Note: Patient here for an annual physical exam Seed Cleaner Required: No Accompanied by: Self / Same As Patient Allergies Iodinated Contrast Media [IV CONTRAST] Allergy (Severe, Verified 05/07/24 11:23) ANAPHYLAXIS aspirin [ASPIRIN] Allergy (Intermediate, Verified 05/07/24 11:23) ITCH, rash naproxen [From NAPROSYN] Allergy (Intermediate, Verified 05/07/24 11:23) ITCHINESS baclofen Adverse Reaction (Unknown, Verified 05/07/24 11:23) Unknown bupropion Adverse Reaction (Unknown, Verified 05/07/24 11:23) unknown memantine Adverse Reaction (Unknown, Verified 05/07/24 11:23) unknown Medication List - Last Reconciled 05/07/24 by Palmira Sutton MD albuterol sulfate 2.5 mg (3 mL) inhalation Q4-6H PRN 30 days atorvastatin 20 mg PO DAILY bisacodyl (Dulcolax (bisacodyl)) 20 mg (4 x 5 mg) PO ONCE 1 day [cannabis PO] fluoxetine 40 mg PO DAILY 90 days fluticasone propionate 50 mcg/actuation (Flonase Allergy Relief) 1 spray intranasal BID 30 days ketoconazole 2% 1 appl topical 2XW 30 days magnesium oxide 400 mg PO BEDTIME natalizumab 300 mg IV Q4W natalizumab (Tysabri) 300 mg IV Q4W nebulizers (AeroEclipse II Nebulizer) As directed oxycodone 10 mg PO Q8H PRN 30 days pantoprazole 40 mg PO DAILY polyethylene glycol 3350 (Miralax) 238 grams PO ONCE 1 day selenium sulfide 2.3% 1 appl topical QWEEK 30 days simethicone 160 mg PO BID triamcinolone acetonide 0.5% 1 appl topical BID PRN 30 days ursodiol 300 mg PO BID Ventolin HFA 90 mcg/actuation (albuterol sulfate) 2 puffs inhalation Q6H PRN 30 days NS Tobacco use date assessed: 05/07/24 Dental Screening Dental Screen Date: 05/07/24 Did you have a dental visit in the last 12 months?: Yes Did you have a dental problem in the last 6 months where you did not have access to dental care?: No Was dental information given to patient?: Patient has dentist HPI HPI Comments History of Present Illness Details This is a 53 year old female with mild major depression and multiple sclerosis that comes for her physical exam. Depression has been follow by counseling and has been stable with fluoxetine. Multiple sclerosis is follow by Neurology. Has had colonoscopy in the past and has a scheduled colonoscopy in 08/2024. Needs to schedule a mammogram. Pain management contract was signed today and pill counts were 73. Last oxycodone that she took was last night. No chest pain or shortness on breath. [facility] Medical History (Updated 05/07/24 @ 11:55 by Palmira Sutton MD) Cervicalgia Chronic migraine with aura Hypersomnia Insomnia Snoring Gait abnormality Cervicalgia Multiple sclerosis Hypovitaminosis D Mild recurrent major depression Abnormal EKG Bronchitis Morbid obesity Left leg pain Shortness of breath COVID-19 Microalbuminuria Multiple sclerosis Left ankle pain Lumbar degenerative disc disease Surgical History History of sleeve gastrectomy H/O colonoscopy S/P excision of ganglion cyst History of gastric surgery Family History Father Prostate cancer Colon cancer Mother CAD (coronary artery disease) Son No problems noted. Son No problems noted. Son No problems noted. Daughter No problems noted. Social History Housing: Apartment Alcohol intake: never Patient Tobacco Use Status: Never used Tobacco e-Cigarette/Vaping Use: Never Used Second Hand Smoke Exposure: No service: No Current occupational status: disabled Cognitive needs: No Hearing needs: No Vision needs: No Questionnaire PHQ-9 Over the last 2 weeks, how often have you been bothered by any of the following problems? 1. Little interest or pleasure in doing things: several days 2. Feeling down, depressed, or hopeless: more than half the days 3. Trouble falling or staying asleep, or sleeping too much: not at all 4. Feeling tired or having little energy: nearly every day 5. Poor appetite or overeating: several days 6. Feeling bad about yourself - or that you are a failure or have let yourself or your family down: more than half the days 7. Trouble concentrating on things, such as reading the newspaper or watching television: several days 8. Moving or speaking so slowly that other people could have noticed. Or the opposite - being so fidgety or restless that you have been moving around a lot more than usual: nearly every day 9. Thoughts that you would be better off or of hurting yourself in some way: not at all Total score: 13 Depression Screening Interpretation: Positive Depression Screening Follow-up: Existing condition, In treatment, Community Mental Health Worker F/U and Follow- up Visit Requested Depression Screening Done: Yes 43579 - PHQ-9 Billing: Yes Source: Developed by Drs. Emil Newell, Shayy Ruiz, Hebert Sotelo and colleagues, with an educational colt from [employer]. Thrive Questionnaire Date Thrive assessed: 05/07/24 I am a: Patient What is your living situation today?: I have a steady place to live Within the past 12 months, did the food you bought not last and you didn't have the money to get more?: Never true Within the past 12 months, did you worry whether your food would run out before you got money to buy more?: Never true Do you have trouble paying for medicines?: No Do you have trouble getting transportation to medical appointments?: No Do you have trouble paying your heating and electricity bill?: No Do you have trouble taking care of your child, family member or friend?: No Do you have trouble with day-to-day activities such as bathing, preparing meals, shopping, managing finances, etc.?: No Are you currently unemployed and looking for a job?: No Are you interested in more education?: No Please select the resources that you would like help with: None Currently or been in a relationship where the following occur: no concerns reported THRIVE Score: 0 AUDIT C Alcohol Use Questionnaire (AUDIT-C) 1. How often do you have a drink containing alcohol?: Never Total Score: 0 Score Reviewed/Action Taken: No ABDIEL-7 AMB Questionnaire ABDIEL-7 Date ABDIEL - 7 assessed: 05/07/24 Feeling nervous, anxious, or on edge: 1 = Several days Not being able to stop or control worryin = Several days Worrying too much about different things: 3 = Nearly every day Trouble relaxin = Nearly every day Being so restless that it is hard to sit still: 3 = Nearly every day Becoming easily annoyed or irritable: 3 = Nearly every day Feeling afraid as if something awful might happen: 0 = Not at all Total ABDIEL-7 score (0-4 normal; 5-9 mild; 10-14 moderate; 15-21 severe): 14 Source: Developed by Drs. Emil Newell, Shayy Ruiz, Hebert Sotelo and colleagues, with an educational colt from [employer]. ABDIEL-7 Assessment Billing ABDIEL-7 Assessment Tool: ABDIEL-7 Assessment 23491 Review of Systems Const All systems reviewed & are unremarkable except as noted in HPI and below Card Denies chest pain at rest, Denies chest pain with activity, Denies edema, Denies irregular heart rhythm, Denies claudication, Denies dyspnea, Denies dyspnea on exertion, Denies orthopnea, Denies paroxysmal nocturnal dyspnea and Denies slow heart rate Resp Denies cough, Denies dyspnea and Denies dyspnea on exertion GI Denies abdominal pain, Denies change in bowel habits, Denies excessive flatus, Denies nausea and Denies vomiting Denies urinary incontinence, Denies urinary hesitancy and Denies urinary urgency Physical exam (Primary Care) Vital Signs: Last Vital Signs BP 112/76 05/07/24 11:14 BMI result Body Mass Index 35.2 Tobacco/Smoking Status: Tobacco use Status Tobacco use date assessed 05/07/24 05/07/24 11:23 Patient Tobacco Use Status Never used Tobacco 05/07/24 11:23 e-Cigarette/Vaping Use Never Used 05/07/24 11:23 PHQ-9: PHQ-9 Score PHQ-9: Total score 13 05/07/24 11:56 Depression Screening Interpretation: Positive Depression Screening Follow-up: Existing condition, In treatment, Community Mental Health Worker F/U and Follow- up Visit Requested Thrive Assessment: Date of Thrive Assessment Date Thrive assessed 05/07/24 05/07/24 11:23 Currently or been in a relationship where the following occur: no concerns reported Const Orientation/consciousness: patient oriented x3 HENMT Head: Yes normal to inspection, Yes normocephalic and Yes atraumatic Ears: external ears normal Eyes General: appearance normal, both eyes and all related structures Eyelids: Yes eyelids normal Conjunctivae: conjunctivae normal Neck Neck: Yes normal visual inspection and Yes supple Resp Effort & Inspection: normal respiratory effort Auscultation: clear to auscultation bilaterally Cardio Jugular venous distension: no JVD Rate: regular rate Rhythm: regular rhythm Heart sounds: S1 normal heart sound present and S2 normal heart sound present GI Inspection: Yes normal to inspection Palpation (GI): Soft to palpation and nontender Auscultation: normal bowel sounds Skin General skin exam: no rashes or lesions noted Neuro General: patient oriented x3 and no focal motor deficits Extrem General: Yes full ROM Psych Appearance: grossly normal Assessment and Plan Assessment & Plan (1) Physical exam: Code(s): Z00.00 - Encounter for general adult medical examination without abnormal findings Plan: Repeat in a year. (2) Multiple sclerosis: Code(s): G35 - Multiple sclerosis Plan: Follow-up with neurology. Continue Tysabri. (3) Mild recurrent major depression: Code(s): F33.0 - Major depressive disorder, recurrent, mild Plan: Follow-up with counseling. Continue SSRIs. Orders: Orders Vitamin D 25-OH Total Today E55.9 - Vitamin D deficiency, unspecified Comprehensive [place]. Panel Fast Today G35 - Multiple sclerosis Drug Screen Urine Today F11.90 - Opioid use, unspecified, uncomplicated Opiates GCMS Expanded, Ur Today F11.90 - Opioid use, unspecified, uncomplicated Lipid Panel Today E78.5 - Hyperlipidemia, unspecified Coding Level of Care Code Est Pt Prev Care 40-64y(48167) Diagnoses Physical exam Z00.00 Multiple sclerosis G35 Mild recurrent major depression F33.0 Additional Codes ABDIEL-7 Assessment Billing - ABDIEL-7 Assessment Tool: ABDIEL-7 Assessment [id number] ([id number]) Time Spent (min) 35
== END 2024-05-07 11:50 | disposition home or self-care (01) ==
PROVIDERS: PCP Internal Medicine; Visit Provider Internal Medicine
DX: Z00.00 Encounter for general adult medical examination without abnormal findings (principal); G35 Multiple sclerosis; F33.0 Major depressive disorder, recurrent, mild
CPT/HCPCS: 99396

== ENCOUNTER 2024-11-18 13:33 | Outpatient (AMB) | payer OTHER, SELFPAY ==
--- NOTE | 2024-11-18 13:43 | MHC.PC.OV ---
Vital Signs 11/18/24 13:44 Height 5 ft 3 in Weight 194 lb BMI 34.4 BP 110/70 Blood Pressure Location Lt brachial Position Sitting Intake Visit Reasons: ms,depression- see comments Intake Note: Patient here for a follow up MS, Depression Pnp Required: No Accompanied by: Self / Same As Patient Allergies Iodinated Contrast Media [IV CONTRAST] Allergy (Severe, Verified 11/18/24 14:01) ANAPHYLAXIS aspirin [ASPIRIN] Allergy (Intermediate, Verified 11/18/24 14:01) ITCH, rash naproxen [From NAPROSYN] Allergy (Intermediate, Verified 11/18/24 14:01) ITCHINESS baclofen Adverse Reaction (Unknown, Verified 11/18/24 14:01) Unknown bupropion Adverse Reaction (Unknown, Verified 11/18/24 14:01) unknown memantine Adverse Reaction (Unknown, Verified 11/18/24 14:01) unknown Medication List - Last Reconciled 11/18/24 by Palmira Sutton MD albuterol sulfate 2.5 mg (3 mL) inhalation Q4-6H PRN 30 days atorvastatin 20 mg PO DAILY [cannabis PO] cholecalciferol (vitamin D3) 1,250 mcg PO QWEEK fluoxetine 40 mg PO DAILY 90 days fluticasone propionate 50 mcg/actuation (Flonase Allergy Relief) 1 spray intranasal BID 30 days ketoconazole 2% 1 appl topical 2XW 30 days magnesium oxide 400 mg PO BEDTIME natalizumab 300 mg IV Q4W natalizumab (Tysabri) 300 mg IV Q4W nebulizers (AeroEclipse II Nebulizer) As directed oxycodone 10 mg PO Q8H PRN 30 days pantoprazole 40 mg PO DAILY selenium sulfide 2.3% 1 appl topical QWEEK 30 days simethicone 160 mg PO BID triamcinolone acetonide 0.5% 1 appl topical BID PRN 30 days ursodiol 300 mg PO BID Ventolin HFA 90 mcg/actuation (albuterol sulfate) 2 puffs inhalation Q6H PRN 30 days NS Tobacco use date assessed: 05/07/24 Dental Screening Dental Screen Date: 05/07/24 HPI HPI Comments History of Present Illness Details The patient is a 54-year-old female presenting with a request for medication review and management of depression with anxiety and multiple sclerosis. The patient has a known history of allergic reactions to several medications, including aspirin, naproxen, baclofen, bupropion, and memantine. She reports current management of depression with fluoxetine 40 mg, which she notes is for depression with associated anxiety. The patient's obesity is confirmed with a BMI of 34.4, and there has been recent weight gain, with the patient noting an increase in weight from 198 lbs to 194 lbs. There is a mention of possible pancreatitis due to symptoms suggestive of inflammation of the pancreas as a side effect of medications such as Wegovy to lose weight. The patient has expressed concern about the risk of pancreatitis associated with attempting a new treatment plan, which involves injectable medication for weight management. There is no reported history of hypertension or other cardiovascular complications. The patient's medication regimen includes atorvastatin for hyperlipidemia, and she has been taking vitamin D supplementation. She use of magnesium supplements for migraines. She also has multiple sclerosis and last MRI of the brain done in March of 2023 shows no new lesions and needs a neurology referral. On oxycodone for her lumbar degenerative disc disease which has been well control with opiates. She brother pills today and has 50 pills left. [facility], [facility] Medical History (Updated 11/18/24 @ 14:45 by Palmira Sutton MD) Cervicalgia Chronic migraine with aura Hypersomnia Insomnia Snoring Gait abnormality Cervicalgia Multiple sclerosis Hypovitaminosis D Mild recurrent major depression Abnormal EKG Bronchitis Morbid obesity Left leg pain Shortness of breath COVID-19 Microalbuminuria Multiple sclerosis Left ankle pain Lumbar degenerative disc disease Surgical History History of sleeve gastrectomy H/O colonoscopy S/P excision of ganglion cyst History of gastric surgery Family History Father Prostate cancer Colon cancer Mother CAD (coronary artery disease) Son No problems noted. Son No problems noted. Son No problems noted. Daughter No problems noted. Social History Housing: Apartment Alcohol intake: never Patient Tobacco Use Status: Never used Tobacco e-Cigarette/Vaping Use: Never Used Second Hand Smoke Exposure: No service: No Current occupational status: disabled Cognitive needs: No Hearing needs: No Vision needs: No Questionnaire Thrive Questionnaire Date Thrive assessed: 06/11/24 ABDIEL-7 AMB Questionnaire ABDIEL-7 Date ABDIEL - 7 assessed: 05/07/24 Source: Developed by Drs. Emil Newell, Shayy Ruiz, Hebert Sotelo and colleagues, with an educational colt from [employer]. Review of Systems Const Details: - Neurological: Denies new or worsening symptoms. - Gastrointestinal: Reports no significant changes; concern over potential pancreatitis. - Psychiatric: Reports ongoing management of depression with anxiety. - Musculoskeletal: Denies significant pain or limitation. - Dermatological: Reports occurrence of blackhead-like bumps possibly aggravated by clothing. Physical exam (Primary Care) Vital Signs: Last Vital Signs BP 110/70 11/18/24 13:44 BMI result Body Mass Index 34.4 BMI Assessment/Plan discussion: High BMI High, discussed plan: lifestyle, weight reduction, dietary and physical activity Tobacco/Smoking Status: Tobacco use Status Tobacco use date assessed 05/07/24 11/18/24 13:43 Patient Tobacco Use Status Never used Tobacco 11/18/24 13:43 e-Cigarette/Vaping Use Never Used 11/18/24 13:43 Thrive Assessment: Date of Thrive Assessment Date Thrive assessed 05/07/24 11/18/24 13:43 Const Other: General: No confusion Respiratory: Normal respiratory effort, clear to auscultation bilaterally Cardiovascular: No jugular venous distension, regular rate, regular rhythm, S1 normal heart sound present and S2 normal heart sound present Skin: No rashes or lesions noted, but patient reports experiencing a rash with small blackheads Neurology: Patient oriented x3, no focal motor deficits and No confusion Extremities: Full ROM Office Procedures Flu Questionnaire Does the patient have a severe egg allergy?: No Immunizations Fluarix Triv [id number] (PF) 45 mcg (15 mcg x 3)/0.5 mL IM syringe Performing Provider: Palmira Sutton MD [facility] [facility] [facility] [place] [facility] Documented (not given) by: HELENE Bond on 11/18/24 13:51 Reason Not Given: Patient Refused Coding Level of Care Code Est Pt Level 4 (68745) Complex EM visit Add On G2211 Diagnoses Chronic migraine with aura without status migrainosus, not intractable G43.E09 Status migrainosus presence: without status migrainosus Intractability: not intractable Multiple sclerosis G35 Mild recurrent major depression F33.0 Pure hypercholesterolemia E78.00 Hyperlipidemia type: pure hypercholesterolemia Lumbar degenerative disc disease M51.36 Obesity (BMI 30.0-34.9) E66.811 Time Spent (min) 23 Assessment & Plan Assessment & Plan (1) Chronic migraine with aura: Code(s): G43.E09 - Chronic migraine with aura, not intractable, without status migrainosus Category: Medical Qualifiers: Status migrainosus presence: without status migrainosus Intractability: not intractable Qualified Code(s): G43.E09 - Chronic migraine with aura, not intractable, without status migrainosus (2) Multiple sclerosis: Code(s): G35 - Multiple sclerosis Category: Medical (3) Mild recurrent major depression: Code(s): F33.0 - Major depressive disorder, recurrent, mild Category: Medical (4) HLD (hyperlipidemia): Code(s): E78.5 - Hyperlipidemia, unspecified Category: Medical Qualifiers: Hyperlipidemia type: pure hypercholesterolemia Qualified Code(s): E78.00 - Pure hypercholesterolemia, unspecified (5) Lumbar degenerative disc disease: Code(s): M51.36 - Other intervertebral disc degeneration, lumbar region Category: Medical (6) Obesity (BMI 30.0-34.9): Code(s): E66.811 - Obesity, class 1 Category: Medical Plan - Review and monitor the patient?s current medication regimen for treatment of depression with anxiety. Consider alternative options if current treatment is insufficient. - Address and manage potential allergic reactions to aspirin, naproxen, baclofen, bupropion, and memantine. Avoid these medications in management plans. - Evaluate and create a structured weight management plan to address obesity, keeping possible pancreatitis symptoms in mind. - Refer to a neurologist for further evaluation of neurological concerns as indicated. - Conduct laboratory tests as indicated to further investigate the possibility of pancreatitis. - Encourage the continuation of atorvastatin for lipid management and vitamin D supplementation. Patient was informed and verbally consented to the use of an ambient scribe for clinic note documentation during this visit. I discussed with the patient the importance of managing her depression with anxiety through appropriate medication. We reviewed her current regimen of fluoxetine and discussed the need for adherence to reduce symptoms. The potential side effects of an injectable weight management medication were discussed, particularly the risk of pancreatitis, and the need to report any severe abdominal pain immediately. A referral to the neurologist and recommendations for completion of necessary lab tests were emphasized. We also explored the benefits of lifestyle modification, including diet and physical activity to assist weight reduction efforts. All management options and concerns regarding medication allergies were discussed with informed consent obtained. We confirmed the patient?s understanding and commitment to follow these recommendations. Orders: Orders Complete Blood Count Auto Diff Today D64.9 - Anemia, unspecified Lipid Panel Today E78.5 - Hyperlipidemia, unspecified Influenza [id number] Immunization Today Z23 - Encounter for immunization MR head/brain wo con Today G35 - Multiple sclerosis IRON PROFILE Today D64.9 - Anemia, unspecified Vitamin D 25-OH Total Today E55.9 - Vitamin D deficiency, unspecified Comprehensive Collins. Panel Fast Today G35 - Multiple sclerosis Referrals Neurology Referral G35 - Multiple sclerosis Medications: New semaglutide (weight loss) (Wegovy) administer weeks 1 through 4 of therapy 0.25 mg (0.5 mL) subcut QWEEK 4 weeks 2 mL 0RF E66.811 - Obesity, class 1, E78.00 - Pure hypercholesterolemia, unspecified Refilled cholecalciferol (vitamin D3) 1,250 mcg PO QWEEK 14 caps 0RF Discontinued atorvastatin Discontinued Reason: Patient Refused 20 mg PO DAILY 90 tabs 3RF Patient Instructions: - Continue taking fluoxetine as prescribed for depression with anxiety. - Avoid medications known to cause allergic reactions, specifically aspirin, naproxen, baclofen, bupropion, and memantine. - Follow up with the neurologist as per referral instructions. - Adhere to prescribed atorvastatin and vitamin D supplements. - Contact healthcare provider immediately if symptoms suggestive of pancreatitis occur, such as severe abdominal pain. - Engage in weight management efforts, focusing on healthy dietary and physical activity habits. - Complete lab work within the suggested timeframe.
[2024-11-18 13:44] VITALS: BP 110/70; BMI 34.4
== END 2024-11-18 14:20 | disposition home or self-care (01) ==
PROVIDERS: PCP Internal Medicine; Visit Provider Internal Medicine
DX: G35 Multiple sclerosis (principal); F33.0 Major depressive disorder, recurrent, mild; Z68.34 Body mass index [BMI] 34.0-34.9, adult; E66.811 Obesity, class 1; G43.E09 Chronic migraine with aura, not intractable, without status migrainosus; E78.00 Pure hypercholesterolemia, unspecified; M51.369 Other intervertebral disc degeneration, lumbar region without mention of lumbar back pain or lower extremity pain

== ENCOUNTER → 2024-11-18 13:33 | Outpatient (BNVA) | payer OTHER, SELFPAY | PROVIDERS: PCP Internal Medicine; Visit Provider Internal Medicine | DX: G43.E09 Chronic migraine with aura, not intractable, without status migrainosus (principal); G35 Multiple sclerosis; F33.0 Major depressive disorder, recurrent, mild; E78.00 Pure hypercholesterolemia, unspecified; M51.360 Other intervertebral disc degeneration, lumbar region with discogenic back pain only; E66.811 Obesity, class 1; Z68.34 Body mass index [BMI] 34.0-34.9, adult; Z71.3 Dietary counseling and surveillance | CPT/HCPCS: 99212 ==

== ENCOUNTER → 2024-11-29 18:27 | Outpatient (BNV) | payer OTHER, SELFPAY | PROVIDERS: PCP Internal Medicine; Visit Provider Radiology Diagnostic Radiology | DX: G35 Multiple sclerosis (principal) | CPT/HCPCS: 70551 ==

== ENCOUNTER 2024-11-29 18:34 | Outpatient (REF) | payer OTHER, SELFPAY ==
--- NOTE | ~2024-11-29 | MR_ITS ---
EXAMINATION: MR BRAIN WITHOUT IV CONTRAST HISTORY: G35 - Multiple sclerosis TECHNIQUE: Sagittal T1, and axial T1, FLAIR, T2, gradient echo, and diffusion weighted MR images of the brain were obtained. COMPARISON: Comparison is made with the prior examination dated 03/28/2023. FINDINGS: Again seen are extensive periventricular and subcortical white matter hyperintensities on the FLAIR and T2-weighted images. Many of these are oriented perpendicular to the long axis of the corpus callosum consistent with the patient's known history of demyelinating disease. There is a new lesion in the high left posterior frontal lobe (series 6, image 23 and series 13, image 12). No additional new lesions are identified. There is no mass effect or midline shift. No intra or extra-axial fluid collections are identified. There are no foci of restricted diffusion. Normal vascular flow voids are noted in the basilar and carotid arteries. The visualized paranasal sinuses are clear. MR/MR head/brain wo con IMPRESSION: Findings are again noted consistent with the patient's known history of demyelinating disease as described. A new lesion is noted in the high posterior left frontal lobe. Electronically signed by: Emil Stokes MD 12/02/2024 11:17 AM [facility]
== END 2024-11-29 18:35 | disposition home or self-care (01) ==
LOC: HO.MRI 18:34
PROVIDERS: PCP Internal Medicine; Visit Provider Internal Medicine
DX: G35 Multiple sclerosis (principal)
CPT/HCPCS: 70551

== ENCOUNTER 2025-02-14 09:23 | Outpatient (REF) | payer OTHER, SELFPAY ==
[2025-02-14 10:10] LABS: MANUAL DIFF FLAG NO
[2025-02-14 10:27] LABS: Basophils Absolute Auto 0.1 X10*3/uL (0.0-0.2); Basophils Percent Auto 0.7 % (0-2); Eosinophils Absolute Auto 0.3 X10*3/uL (0.0-0.4); Eosinophils Percent Auto 3.6 % (0-4); Hematocrit 37.6 % (37.0-47.0); Hemoglobin 12.3 g/dl (12.0-16.0); Imm Gran Abs Auto 0.03 X10*3/uL (0.00-0.03); Imm Gran Pct Auto 0.4 % (0.0-0.4); Lymphocytes Absolute Auto 3.3 X10*3/uL (1.2-4.9); Lymphocytes Percent Auto 40.5 % (20-40); Mean Corpuscular HGB Conc 32.7 g/dl (31.0-35.0); Mean Corpuscular Hemoglobin 29.7 pg (27.0-33.0); Mean Corpuscular Volume 90.8 fL (80.0-98.0); Monocytes Absolute Auto 0.5 X10*3/uL (0.1-1.2); Monocytes Percent Auto 6.6 % (2-11); Neutrophils Absolute Auto 3.9 x10*3/uL (2.0-8.3); Neutrophils Percent Auto 48.2 % (45-73); Platelet Count 316 X10*3/uL (160-400); Red Blood Count 4.14 X10*6/uL (4.20-5.50); Red Cell Distribution Width 13.5 % (11.0-16.0)
[2025-02-14 11:17] LABS: Alanine Aminotransferase 73 U/L (0-31); Albumin Level 4.2 g/dL (3.5-5.0); Alkaline Phosphatase 82 U/L (39-117); Aspartate Amino Transferase 45 U/L (5-31); Bilirubin Direct 0.2 mg/dL (0.0-0.5); Bilirubin Total 0.5 mg/dL (0.0-1.0); Blood Urea Nitrogen 11 mg/dL (9-16); Estimated Glomerular Filt Rate > 60; Total Protein 8.2 g/dL (6.5-8.0); Vitamin D 25-OH Total 42.8 ng/mL (>30)
[2025-02-14 11:21] LABS: HBc Num1 0.06 S/CO (0.00-0.79); HIV AB/AG Nonreactive (Nonreactive); HIV Num 1 0.08 S/CO (0.00-0.99); Hepatitis B Core Antibody Nonreactive (Nonreactive); Hepatitis B Surface Antigen Negative (Negative); Vitamin B12 680 pg/mL (200-900); ~HepC Num1 0.34 S/CO (0.00-0.79); ~Hepatitis C Antibody Nonreactive (Nonreactive)
[2025-02-17 11:44] LABS: Immunoglobulin A 244 mg/dL (47-310); Immunoglobulin G 1537 mg/dL (600-1640); Immunoglobulin M 43 mg/dL (50-300)
[2025-02-17 22:48] LABS: Lyme Abs Screen <0.90 index
[2025-02-18 02:34] LABS: Varicella IgG Antibody <1.00 S/CO
[2025-02-19 19:23] LABS: NMO IgG Autoantibodies NEGATIVE (NEGATIVE)
[2025-02-19 23:34] LABS: JCV Antibody POSITIVE; JCV Index Value 2.25 index
[2025-02-20 09:18] LABS: TB Test (QFT) Mitogen -Nil 7.52; TB Test (QFT) Nil 0.14; TB Test (QFT) Plus TB1 -Nil 0.17
[2025-02-20 09:19] LABS: Quantiferon TB Gold Plus 1 NEGATIVE
[2025-02-26 01:23] LABS: MOG IgG NEGATIVE (NEGATIVE)
== END 2025-02-14 09:24 | disposition home or self-care (01) ==
LOC: HO.LAB 09:23
PROVIDERS: Absent Provider Internal Medicine; PCP Internal Medicine; Visit Provider Student in an Organized Health Care Education/Training Program
DX: G35 Multiple sclerosis (principal); R41.89 Other symptoms and signs involving cognitive functions and awareness; Z79.899 Other long term (current) drug therapy
CPT/HCPCS: 36415; 80076; 82306; 82565; 82607; 82784; 84520; 85025; 86052; 86362; 86480; 86617; 86618; 86704; 86711; 86787; 86803; 87340; 87389

== ENCOUNTER 2025-03-07 14:09 | Outpatient (AMB) | payer OTHER, SELFPAY ==
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
[2025-03-07 14:18] VITALS: BP 122/72; PULSE 54; TEMP 36.3; O2SAT 97; BMI 34.9
--- OUTSIDE RECORDS SUMMARY | 2025-03-07 14:31 | XMS_ITS | Patient Health Record ---
Author Organization Emil Chacon III, MD Address [address] [place] [address] Care Team Providers Care Senior Manufacturing Technician Name Role Phone MELODY CASTRO MD, RAMIRO Primary Care Provider Emil Vargas Unavailable [phone] Delvis LOZANO, [facility] Unavailable Unavailable Allergies Allergen (clinical drug ingredient) Drug/Non Drug Allergy documented on EMR Reaction Allergy Type Onset Date Status No Known Drug Allergy Unknown Drug Allergy Active Reason For Referral No Information Medications Medication SIG (Take, Route, Frequency, Duration) Notes Start Date End Date Status hydrOXYzine HCl 50 MG 1 tablet as needed Orally every 6 hrs Active Topamax 25 MG 1 tablet Orally Once a day Active Lidocaine-Prilocaine 2.5-2.5 % USE DIRECTED APPLY OVER PORTACATH 1 HOURS PRIOR TO TREATMENT EXTERNALLY 30 DAYS Active Phentermine HCl 37.5 MG 1 tablet Orally Once a day Active oxyCODONE HCl 5 MG 1 tablet Orally twic e a day Active Ibuprofen 800 MG 1 tablet with food o r milk as needed Orally Three times a day Active metFORMIN HCl 1000 MG 1 tablet with a me al Orally Once a day Active DULoxetine HCl 60 MG 1 capsule Orally On ce a day Active Atorvastatin Calcium 20 MG 1 tablet Oral ly Once a day Active Omeprazole 40 MG 1 capsule Orally Onc e a day Active Immunizations Vaccine Route Administration Date Status Comme nts COVID PFIZER Unknown 07/29/2021 Administered COVID PFIZER Unknown 08/18/2021 Administered Social History Tobacco Use: Social History Observation Description Date Details (start date - stop date) Never Smoker NA - NA Sex Assigned At : Social History Observation Description Sex Assigned At Female Tobacco Use/Smoking Question Answer Notes Patient is a nonsmoker Additional Findings: Tobacco Non-User Aggressive non-smoker Alcohol Screen Question Answer Notes Did you have a drink containing alcohol in the p ast year? No Points 0 Interpretation Negative Problems Problem Type SNOMED Code ICD Code Onset Dates Problem Status W/U Status Risk Notes Problem 7641386 Thrombocytosis (D47.3) Active confirmed This value has been repeated several times in the database at [facility]. The elevation of the platelets is mild but constant and may be due to iron deficiency or another cause, such as a myeloproliferative disorder. She will be referred back to primary care for this process. Problem 96407783 Multiple sclerosis (G35) Active confirmed She was jacob antonia with 300 mg of Tysabri through the port without incident. At the end of the one hour infusion she was observed and had no reaction. Her port functioned well. Problem 287273220 Mixed hyperlipidemia (E78.2) Active confirmed She will be referred back to primary care for addressing this issue. Problem 572819049 Low back pain (M54.5) Active confirmed Back pain has resolved for the time being. Problem 320398304 Obesity (BMI 30-39.9) (E66.9) Active confirmed She has los t 16 pounds since her last visit. Her body mass index is now 37. Problem 207373218 Anemia of chronic disease (D63.8) Active confirmed Problem Tunneled central venous catheter in situ (369860956) Port-a-cath in place (Z95.828) Active confirmed The port fun ctioned well today.After use it was flushed with 10 cc of saline and 10 cc of heparin solution without difficulty. Problem 120853837 Type 2 diabetes mellitus without complication, without long-term current use of insulin (E11.9) Active confirmed She had no r eaction to today's treatment. She will continue on current therapy without change. She says he is taking all her medications. I strongly recommended aggressive weight loss. Problem 95247038 Reactive depression (F32.9) Active confirmed She was very sa d today which she said was due to family problems. There was a in the family recently. She was in tears today saying she has no appetite. She has lost 3 pounds. She was thinking of stopping her treatment for MS. Although we are not her primary care physician. We referred her to [facility] for mental health treatment. She denied being suicidal today. She was instructed that if she became suicidal or she could go to the emergency room at [facility] 24 hours a day and asked to see crisis. She will not return the way into she is seeing a mental health provider. She agreed to do this. She assured me that she was not suicidal. 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 Problem 459380201 Poor venous access (I87.8) Active confirmed I have discus sed with her the pros and cons of inserting a Port-A-Cath. She has agreed to do so. She has had difficulty with venous access in the past. I have examined her carefully today. She is medically cleared for the surgical procedure of inserting a Port-A-Cath. The risks are minimal and the benefits are significant. She is medically cleared for the procedure. Problem 429406912 Diabetes mellitus without complication (E11.9) Active confirmed She reports goo d control recently. She is trying to lose weight on a diabetic diet. Problem 774627829 Diabetes mellitus of other type without complication, unspecified whether adzing and boring machine helper insulin use (E13.9) Active confirmed He has been compliant with her therapy. She has lost weight. I recommended continued weight loss and adherence to a diabetic diet. Vital Signs Heart Rate 68 /min 12/11/2024 Blood pressure diastolic 74 mm Hg 12/11/2024 Height 64 in 12/11/2024 Blood pressure systolic 110 mm Hg 12/11/2024 Weight 191 lbs 12/11/2024 BMI 32.78 kg/m2 12/11/2024 Encounters Encounter Location Date Provider Diagnosis Emil Chacon III, MD [address] [place] [address] [place] [address] 03/18/2024 Emil Chacon Multiple sclerosis G 35 ; Mixed hyperlipidemia E78.2 ; Low back pain M54.5 ; Non insulin dependent diabetes mellitus with ophthalmic complication E11.39 and Obesity (BMI 30-39.9) E66.9 Emil Chacon III, MD [address] [place] [address] [place] [address] 05/14/2024 Emil Chacon Multiple sclerosis G 35 ; Mixed hyperlipidemia E78.2 ; Port-a-cath in place Z95.828 ; Low back pain M54.5 ; Obesity (BMI 30-39.9) E66.9 and Diabetes mellitus without complication E11.9 mEil Chacon III, MD [address] [place] [address] [place] [address] 06/25/2024 Emil Chacon Multiple sclerosis G 35 ; Mixed hyperlipidemia E78.2 ; Port-a-cath in place Z95.828 and Reactive depression F32.9 Emil Chacon III, MD [address] [place] [address] [place] [address] 07/23/2024 Emil Chacon Multiple sclerosis G 35 ; Mixed hyperlipidemia E78.2 ; Low back pain M54.5 and Type 2 diabetes mellitus without complication, without long-term current use of insulin E11.9 Emil Chacon III, MD [address] [place] [address] [place] [address] 08/20/2024 Emil Chacon Multiple sclerosis G 35 ; Mixed hyperlipidemia E78.2 ; Port-a-cath in place Z95.828 ; Reactive depression F32.9 ; Diabetes mellitus without complication E11.9 and Obesity (BMI 30-39.9) E66.9 Emil Chacon III, MD [address] [place] [address] [place] [address] 09/17/2024 Emil Chacon Multiple sclerosis G 35 ; Mixed hyperlipidemia E78.2 ; Port-a-cath in place Z95.828 ; Obesity (BMI 30-39.9) E66.9 ; Diabetes mellitus without complication E11.9 and Reactive depression F32.9 Emil Chacon III, MD [address] [place] [address] [place] [address] 11/13/2024 Emil Chacon Multiple sclerosis G 35 ; Diabetes mellitus of other type without complication, unspecified whether adzing and boring machine helper insulin use E13.9 ; Port-a-cath in place Z95.828 and Mixed hyperlipidemia E78.2 Emil Chacon III, MD [address] [place] [address] [place] [address] 12/11/2024 Emil Chacon Multiple sclerosis G 35 ; Mixed hyperlipidemia E78.2 ; Non insulin dependent diabetes mellitus with ophthalmic complication E11.39 ; Port-a-cath in place Z95.828 ; Low back pain M54.5 ; Obesity (BMI 30-39.9) E66.9 and Reactive depression F32.9 Emil Chacon III, MD [address] [place] [address] [place] [address] 04/04/2024 Emil Chacon III, MD [address] [place] [address] [address] [place] [address] 12/31/2024 Emil Chacon Assessments Encounter Date Diagnosis (ICD Code) Assessment Notes Treat ment Notes Treatment Clinical Notes 03/18/2024 Multiple sclerosis (ICD-10 - G35) She was treated with 300 mg of Tysabri through the port without incident. At the end of the one hour infusion she was observed and had no reaction. Her port functioned well. 03/18/2024 Mixed hyperlipidemia (ICD-10 - E78.2) She will be referred back to primary care for addressing this issue. 05/14/2024 Multiple sclerosis (ICD-10 - G35) She was treated with 300 mg of Tysabri through the port without incident. At the end of the one hour infusion she was observed and had no reaction. Her port functioned well. 05/14/2024 Mixed hyperlipidemia (ICD-10 - E78.2) She will be referred back to primary care for addressing this issue. 06/25/2024 Multiple sclerosis (ICD-10 - G35) She was treated with 300 mg of Tysabri through the port without incident. At the end of the one hour infusion she was observed and had no reaction. Her port functioned well. 06/25/2024 Mixed hyperlipidemia (ICD-10 - E78.2) She will be referred back to primary care for addressing this issue. 07/23/2024 Multiple sclerosis (ICD-10 - G35) She was treated with 300 mg of Tysabri through the port without incident. At the end of the one hour infusion she was observed and had no reaction. Her port functioned well. 07/23/2024 Mixed hyperlipidemia (ICD-10 - E78.2) She will be referred back to primary care for addressing this issue. 08/20/2024 Multiple sclerosis (ICD-10 - G35) She was treated with 300 mg of Tysabri through the port without incident. At the end of the one hour infusion she was observed and had no reaction. Her port functioned well. 08/20/2024 Mixed hyperlipidemia (ICD-10 - E78.2) She will be referred back to primary care for addressing this issue. 09/17/2024 Multiple sclerosis (ICD-10 - G35) She was treated with 300 mg of Tysabri through the port without incident. At the end of the one hour infusion she was observed and had no reaction. Her port functioned well. 09/17/2024 Mixed hyperlipidemia (ICD-10 - E78.2) She will be referred back to primary care for addressing this issue. 11/13/2024 Multiple sclerosis (ICD-10 - G35) She was treated with 300 mg of Tysabri through the port without incident. At the end of the one hour infusion she was observed and had no reaction. Her port functioned well. 11/13/2024 Diabetes mellitus of other type without complication, unspecified whether adzing and boring machine helper insulin use (ICD-10 - E13.9) He has been compliant with her therapy. She has lost weight. I recommended continued weight loss and adherence to a diabetic diet. 12/11/2024 Multiple sclerosis (ICD-10 - G35) She was treated with 300 mg of Tysabri through the port without incident. At the end of the one hour infusion she was observed and had no reaction. Her port functioned well. 12/11/2024 Mixed hyperlipidemia (ICD-10 - E78.2) She will be referred back to primary care for addressing this issue. 03/18/2024 Low back pain (ICD-1 0 - M54.5) Back pain has resolved for the time being. 05/14/[address] (ICD-10 - Z95.828) The port functioned well today. 06/25/[address] (ICD-10 - Z95.828) The port functioned well today. 07/23/2024 Low back pain (ICD-1 0 - M54.5) Back pain has resolved for the time being. 08/20/[address] (ICD-10 - Z95.828) The port functioned well today. 09/17/[address] (ICD-10 - Z95.828) The port functioned well today. 11/13/[address] (ICD-10 - Z95.828) The port functioned well today.After use it was flushed with 10 cc of saline and 10 cc of heparin solution without difficulty. 12/11/2024 Non insulin dependen t diabetes mellitus with ophthalmic complication (ICD-10 - E11.39) No change in her regimen seems necessary. 03/18/2024 Non insulin dependen t diabetes mellitus with ophthalmic complication (ICD-10 - E11.39) No change in her regimen seems necessary. 05/14/2024 Low back pain (ICD-1 0 - M54.5) Back pain has resolved for the time being. 06/25/2024 Reactive depression (ICD-10 - F32.9) She was very sad today which she said was due to family problems. There was a in the family recently. She was in tears today saying she has no appetite. She has lost 3 pounds. She was thinking of stopping her treatment for MS. Although we are not her primary care physician. We referred her to [facility] for mental health treatment. She denied being suicidal today. She was instructed that if she became suicidal or she could go to the emergency room at [facility] 24 hours a day and asked to see crisis. She will not return the way into she is seeing a mental health provider. She agreed to do this. She assured me that she was not suicidal. 07/23/2024 Type 2 diabetes mellitus without complication, without long-term current use of insulin (ICD-10 - E11.9) She had no reaction to today's treatment. She will continue on current therapy without change. She says he is taking all her medications. I strongly recommended aggressive weight loss. 08/20/2024 Reactive depression (ICD-10 - F32.9) She was very sad today which she said was due to family problems. There was a in the family recently. She was in tears today saying she has no appetite. She has lost 3 pounds. She was thinking of stopping her treatment for MS. Although we are not her primary care physician. We referred her to [facility] for mental health treatment. She denied being suicidal today. She was instructed that if she became suicidal or she could go to the emergency room at [facility] 24 hours a day and asked to see crisis. She will not return the way into she is seeing a mental health provider. She agreed to do this. She assured me that she was not suicidal. 09/17/2024 Obesity (BMI 30-39.9 ) (ICD-10 - E66.9) She has lost 16 pounds since her last visit. Her body mass index is now 37. 11/13/2024 Mixed hyperlipidemia (ICD-10 - E78.2) She will be referred back to primary care for addressing this issue. 12/11/[address] (ICD-10 - Z95.828) The port functioned well today.After use it was flushed with 10 cc of saline and 10 cc of heparin solution without difficulty. 03/18/2024 Obesity (BMI 30-39.9 ) (ICD-10 - E66.9) She has lost 16 pounds since her last visit. Her body mass index is now 37. 05/14/2024 Obesity (BMI 30-39.9 ) (ICD-10 - E66.9) She has lost 16 pounds since her last visit. Her body mass index is now 37. 08/20/2024 Diabetes mellitus without complication (ICD-10 - E11.9) She reports good control recently. She is trying to lose weight on a diabetic diet. 09/17/2024 Diabetes mellitus without complication (ICD-10 - E11.9) She reports good control recently. She is trying to lose weight on a diabetic diet. 12/11/2024 Low back pain (ICD-1 0 - M54.5) Back pain has resolved for the time being. 05/14/2024 Diabetes mellitus without complication (ICD-10 - E11.9) She reports good control recently. She is trying to lose weight on a diabetic diet. 08/20/2024 Obesity (BMI 30-39.9 ) (ICD-10 - E66.9) She has lost 16 pounds since her last visit. Her body mass index is now 37. 09/17/2024 Reactive depression (ICD-10 - F32.9) She was very sad today which she said was due to family problems. There was a in the family recently. She was in tears today saying she has no appetite. She has lost 3 pounds. She was thinking of stopping her treatment for MS. Although we are not her primary care physician. We referred her to [facility] for mental health treatment. She denied being suicidal today. She was instructed that if she became suicidal or she could go to the emergency room at [facility] 24 hours a day and asked to see crisis. She will not return the way into she is seeing a mental health provider. She agreed to do this. She assured me that she was not suicidal. 12/11/2024 Obesity (BMI 30-39.9 ) (ICD-10 - E66.9) She has lost 16 pounds since her last visit. Her body mass index is now 37. 12/11/2024 Reactive depression (ICD-10 - F32.9) She was very sad today which she said was due to family problems. There was a in the family recently. She was in tears today saying she has no appetite. She has lost 3 pounds. She was thinking of stopping her treatment for MS. Although we are not her primary care physician. We referred her to [facility] for mental health treatment. She denied being suicidal today. She was instructed that if she became suicidal or she could go to the emergency room at [facility] 24 hours a day and asked to see crisis. She will not return the way into she is seeing a mental health provider. She agreed to do this. She assured me that she was not suicidal. Plan Of Treatment Pending Test Test Name Order Date PROFILE, RANDOM (COMPREHENSIVE METABOLIC ) 08/23/2018 CBC w DIFF 08/23/2018 PROTHROMBIN TIME (PT, INR) 08/23/2018 PARTIAL THROMBOPLASTIN TIME (PTT) 2017 PORTACATH INSERTION 08/23/2018 Insurance Providers Payer Name Payer Address Payer Phone Subscriber Number Group Number Insured Name Patient Relationship to Insured Coverage Start Date Coverage End Date [employer] [address] [address] [place] [address] [id number] KINJAL WILSON Self - patient is the insured MEDICAID [facility] [address] [place], [place] [id number] [phone] [id number] KINJAL WILSON Self - patient is the insured Medical (General) History Medical History History ICD Code Obesity, unspecified E66.9 Bariatric surgery status Z98.84 Hyperlipidemia, unspecified hyperlipidem ia type E78.5 chronic relapsing multiple sclerosis chronic low back pain hypertension diabetes mellitus obesity anemia thrombocytosis Surgical History Surgery Date(Month/Year) right hand cyst removal 12/2017 Port-A-Cath insertion right anterior chest wall, [facility] 2017 bariatric surgery: Gastric sleeve 3 Hospitalization History Reason Date(Month/Year) hypotension 07/2019
--- OUTSIDE RECORDS SUMMARY | 2025-03-07 14:31 | XMS_ITS ---
Author Organization Emil Chacon III, MD Address [address] [place] [address] Care Team Providers Care Quality Assurance Manager Name Role Phone MELODY CASTRO MD, RAMIRO Primary Care Provider Emil Vargas Unavailable [phone] Delvis LOZANO, Asma Unavailable Unavailable Allergies Allergen (clinical drug ingredient) Drug/Non Drug Allergy documented on EMR Reaction Allergy Type Onset Date Status No Known Drug Allergy Unknown Drug Allergy Active REASON FOR VISIT Tysabri Infusion, Multiple sclerosis Medications Medication SIG (Take, Route, Frequency, Duration) Notes Start Date End Date Status Atorvastatin Calcium 20 MG 1 tablet Oral ly Once a day Active DULoxetine HCl 60 MG 1 capsule Orally On ce a day Active oxyCODONE HCl 5 MG 1 tablet Orally twic e a day Active Omeprazole 40 MG 1 capsule Orally Onc e a day Active metFORMIN HCl 1000 MG 1 tablet with a me al Orally Once a day Active hydrOXYzine HCl 50 MG 1 tablet as needed Orally every 6 hrs Active Lidocaine-Prilocaine 2.5-2.5 % USE DIRECTED APPLY OVER PORTACATH 1 HOURS PRIOR TO TREATMENT EXTERNALLY 30 DAYS Active Ibuprofen 800 MG 1 tablet with food o r milk as needed Orally Three times a day Active Phentermine HCl 37.5 MG 1 tablet Orally Once a day Active Topamax 25 MG 1 tablet Orally Once a day Active Social History Tobacco Use: Social History Observation Description Date Details (start date - stop date) Never Smoker NA - NA Sex Assigned At : Social History Observation Description Sex Assigned At Female Tobacco Use/Smoking Question Answer Notes Patient is a nonsmoker Additional Findings: Tobacco Non-User Aggressive non-smoker Problems Problem Type SNOMED Code ICD Code Onset Dates Problem Status W/U Status Risk Notes Problem [id number] Diabetes mellitus of other type without complication, unspecified whether fpc insulin use (E13.9) Active confirmed He has been compliant with her therapy. She has lost weight. I recommended continued weight loss and adherence to a diabetic diet. Vital Signs Blood pressure systolic 106 mm Hg 11/13/20 24 Blood pressure diastolic 68 mm Hg 024 Heart Rate 64 /min 11/13/2024 Height 64 in 11/13/2024 Weight 193 lbs 11/13/2024 BMI 33.12 kg/m2 11/13/2024 Encounters Encounter Location Date Provider Diagnosis Emil Chacon III, MD [address] [place] [address] [place] [address] 11/13/2024 Emil Chacon Multiple sclerosis G 35 ; Diabetes mellitus of other type without complication, unspecified whether bed bug exterminator insulin use E13.9 ; Port-a-cath in place Z95.828 and Mixed hyperlipidemia E78.2 Assessments Encounter Date Diagnosis (ICD Code) Assessment Notes Treat ment Notes Treatment Clinical Notes 11/13/2024 Multiple sclerosis (ICD-10 - G35) She was treated with 300 mg of Tysabri through the port without incident. At the end of the one hour infusion she was observed and had no reaction. Her port functioned well. 11/13/2024 Diabetes mellitus of other type without complication, unspecified whether bed bug exterminator insulin use (ICD-10 - E13.9) He has been compliant with her therapy. She has lost weight. I recommended continued weight loss and adherence to a diabetic diet. 11/13/[address] (ICD-10 - Z95.828) The port functioned well today.After use it was flushed with 10 cc of saline and 10 cc of heparin solution without difficulty. 11/13/2024 Mixed hyperlipidemia (ICD-10 - E78.2) She will be referred back to primary care for addressing this issue. Plan Of Treatment Medication Medication Name Sig Start Date Stop Date Notes Atorvastatin Calcium 20 MG 1 tablet Orally Once a day DULoxetine HCl 60 MG 1 capsule Orally Once a day oxyCODONE HCl 5 MG 1 tablet Orally twice a day Omeprazole 40 MG 1 capsule Orally Once a day metFORMIN HCl 1000 MG 1 tablet with a me al Orally Once a day hydrOXYzine HCl 50 MG 1 tablet as needed Orally every 6 hrs Lidocaine-Prilocaine 2.5-2.5 % USE DI RECTED APPLY OVER PORTACATH 1 HOURS PRIOR TO TREATMENT EXTERNALLY 30 DAYS Ibuprofen 800 MG 1 tablet with food o r milk as needed Orally Three times a day Phentermine HCl 37.5 MG 1 tablet Orally Once a day Topamax 25 MG 1 tablet Orally Once a day Next Appt Details Follow Up: 4 Weeks, Reason: Tysabri infusion no tests Procedure Notes * Category Sub-Category Detail Notes Chemotherapy Start and End Time: start,1:00 p m, end, 2:00 pm Site: portacath Consent: verbal consent was o btained prior to procedure Medications given: Tysabri 300 mg Monitored by: МАРИНА Morton port flush flushed with 10cc of saline and 1:100 heparin solution route IV Progress Notes * JOSE VIZCAINOABRILKEVANOB: (54 yo F)Acc No.[id number]:11/13/2024 Patient:?NICOL WILSON Provider:?Emil Chacon MD :1970???Age:54 Y???Sex:Female D ate:11/13/2024 Address:[address] [place], [place] [id number] Pcp:RAMIRO CASTRO MD Subjective: * Chief Complaints: * ???Tysabri InfusionMultiple sclerosis * HPI: ???COVID-19 Screening:? She returns for another dose of intravenous Tysabri monoclonal antibody therapy for chronic relapsing multiple sclerosis.? She seems healthy and well today.? She was treated without incident.? She will return in 4 weeks. ?Questions?Have you had any new onset fever, chills, cough, congestion, sore throat, shortness of breath, muscle aches??No * ROS:?General/Constitutional:?pain?only normal aches and pains.?Chills?denies.?Fatigue?admits.?Fever?denies.?ENT:?Decreased hearing?denies.?Respiratory:?Cough?denies.?Cardiovascular:?Chest pain with exertion?denies.?Dyspnea on exertion?denies.?Shortness of breath?denies.?Gastrointestinal:?Constipation?denies.?Decreased appetite?denies.?Diarrhea?denies.?Heartburn?denies.?Nausea?denies.?Rectal bleeding?denies.?Vomiting?denies.?Hematology:?bruising?denies.?petechiae?denies.?Swollen glands?none have been noted.?Genitourinary:?Frequent urination?a small amount.?Musculoskeletal:?Muscle aches?denies.?Painful joints?denies.?Sciatica?denies.?Weakness?denies.?Skin:?Itching?denies.?Rash?denies.?Skin lesion(s)?denies.?Neurologic:?Difficulty speaking?denies.?Dizziness?denies.?Headache?denies.?Low back pain?denies.?Psychiatric:?Depressed mood?which is mild.? * Medical History:? * Surgical History:?bariatric surgery: Gastric sleeve [id number] insertion right anterior chest wall, [facility] 2018right hand cyst removal 12/2017 * Hospitalization/Major Diagno stic Procedure:?hypotension 07/2019 * Family History:?Father: lionel romero 69 yrs, well.?Mother: 61 yrs, cad.? There is a history of multiple sclerosis in a sister and a cousin. She is not aware of any hereditary malignancies in the family. * Social History:?Tobacco Use:?Tobacco Use/Smoking?Patient is a?nonsmoker ?Additional Findings: Tobacco Non-User?Aggressive non-smoker ???She was born in [place], [place]. She is disabled and lives in [place], [place]. He is unemployed. She is Amish. * Medications:?TakinghydrOXYzi ne HCl 50 MG Tablet 1 tablet as needed Orally every 6 hrs Atorvastatin Calcium 20 MG Tablet 1 tablet Orally Once a day Omeprazole 40 MG Capsule Delayed Release 1 capsule Orally Once a day metFORMIN HCl 1000 MG Tablet 1 tablet with a meal Orally Once a day DULoxetine HCl 60 MG Capsule Delayed Release Particles 1 capsule Orally Once a day oxyCODONE HCl 5 MG Tablet 1 tablet Orally twice a day Ibuprofen 800 MG Tablet 1 tablet with food or milk as needed Orally Three times a day Phentermine HCl 37.5 MG Tablet 1 tablet Orally Once a day Topamax 25 MG Tablet 1 tablet Orally Once a day Lidocaine-Prilocaine 2.5-2.5 % Cream USE DIRECTED APPLY OVER PORTACATH 1 HOURS PRIOR TO TREATMENT EXTERNALLY 30 DAYS Medication List reviewed and reconciled with the patientTaking hydrOXYzine HCl 50 MG Tablet 1 tablet as needed Orally every 6 hrs Taking Atorvastatin Calcium 20 MG Tablet 1 tablet Orally Once a day Taking Omeprazole 40 MG Capsule Delayed Release 1 capsule Orally Once a day Taking metFORMIN HCl 1000 MG Tablet 1 tablet with a meal Orally Once a day Taking DULoxetine HCl 60 MG Capsule Delayed Release Particles 1 capsule Orally Once a day Taking oxyCODONE HCl 5 MG Tablet 1 tablet Orally twice a day Taking Ibuprofen 800 MG Tablet 1 tablet with food or milk as needed Orally Three times a day Taking Phentermine HCl 37.5 MG Tablet 1 tablet Orally Once a day Taking Topamax 25 MG Tablet 1 tablet Orally Once a day Taking Lidocaine-Prilocaine 2.5-2.5 % Cream USE DIRECTED APPLY OVER PORTACATH 1 HOURS PRIOR TO TREATMENT EXTERNALLY 30 DAYS Medication List reviewed and reconciled with the patient * Allergies:?No Known Drug All ergyno[Allergies Verified] Objective: * Vitals:?Ht: 64, Wt: 193, BMI :33.12, BP: 106/68, HR: 64, Wt-k.54. * Examination: ???General Examination: ?GENERAL APPEARANCE:?pleasant, well nourished, well developed, in no acute distress, calm and relaxed, obese, woman.?HEAD:?atraumatic, normocephalic.?EYES:?eomi, perrla, anicteric, conjugate.?EARS:?normal.?NOSE:?septum intact.?ORAL CAVITY:?normal, unremarkable.?NECK/THYROID:?no jugular venous distention, no carotid bruit, thyroid normal.?LYMPH NODES:?no enlarged lymph nodes,spleen normal.?SKIN:?no suspicious lesions, anicteric, Port-A-Cath right upper chest wall intact.?HEART:?no clicks, gallops, murmurs, or rubs, regular rhythm, S1, S2 normal, no s3, or vascular bruits.?LUNGS:?clear to auscultation .?BREASTS:??no masses palpable bilaterally.?ABDOMEN:?bowel sounds normal, no ascites, no organomegaly, no mass, centripital obesity.?RECTAL EXAM:?not examined.?MUSCULOSKELETAL:?extremities unremarkable, no clubbing, cyanosis or edema.?PERIPHERAL PULSES:?normal.?NEUROLOGIC:?alert and oriented, cranial nerves 2-12 grossly intact, deep tendon reflexes 2+ symmetrical, motor strength normal upper and lower extremities, sensory exam intact.?PSYCH:?alert, oriented.? Assessment: * Assessment: 1.?Multiple sclerosis - G35 (Primary)???Notes :She was treated with 300 mg of Tysabri through the port without incident. At the end of the one hour infusion she was observed and had no reaction. Her port functioned well.???2.?Diabetes mellitus of other type without complication, unspecified whether fpc insulin use - E13.9???Notes :He has been compliant with her therapy.? She has lost weight.? I recommended continued weight loss and adherence to a diabetic diet.???3.?Port-a-cath in place - Z95.828???Notes :The port functioned well today.After use it was flushed with 10 cc of saline and 10 cc of heparin solution without difficulty.???4.?Mixed hyperlipidemia - E78.2???Notes :She will be referred back to primary care for addressing this issue.??? Plan: * Treatment: 2.?Others? Continue Lidocaine-Prilocaine Cream, 2.5-2.5 %, USE DIRECTED APPLY OVER PORTACATH 1 HOURS PRIOR TO TREATMENT EXTERNALLY 30 DAYS.?? * Procedures:?Chemotherapy:?Start and End Time:?start,1:00 pm, end, 2:00 pm.?Site:?portacath.?Consent:?verbal consent was obtained prior to procedure.?Medications given:?Tysabri 300 mg.?Monitored by:?Katie Trotter, ASMA.?port flush?flushed with 10cc of saline and 1:100 heparin solution.?route?IV.? * Procedure Codes:?37485 REFIL L/MAINT PUMP/RESVR [id number] SALINE [id number] INJECTION HEPARIN SODIUM 10 UNITS * Preventive Medicine:? ??Counseling:?Care goal follow-up plan:?Counseling for abnormal BMI given?Yes ?Above Normal BMI Follow-up?Dietary management education, guidance, and counseling, Dietary needs education, Exercise promotion: strength training, Exercise promotion: stretching, Feeding regime, Giving encouragement to exercise, Lifestyle education regarding diet, Nutrition / feeding management, Nutrition therapy, Prescribed activity/exercise education, Prescribed diet education, Prescribed dietary intake, Special diet education, Weight monitoring , Intervention, Order not done: Medical or Other reason not done ??DM Care Plan:?Patient Lifestyle Goals?Patient wants to be able to manage diabetes without too much effort.?Treatment Goals?HbA1C < 7.0, Blood Sugars less than < 115.?Barriers?no barriers.?Self-Managment Goals?Work on weight loss, with a goal of losing 1 lb per week.? * Follow Up:?4 Weeks (Reason: Tysabri infusion no tests) * Images: * Sign off status: Completed true * Provider:?Emil Chacon MD Date:?10/27 Generated for Printi ng/Faxing/eTransmitting on:?03/07/2025 02:30 PM EDT History and Physical Notes * HPI (History of Present Illness) Category Sub-Category Detail Notes COVID-19 Screening Questions Have you had any new onset fever, chills, cough, congestion, sore throat, shortness of breath, muscle aches?: No Examination Category Sub-Category Detail Notes General Examination GENERAL APPEARANCE: pleasant , well nourished, well developed, in no acute distress, calm and relaxed, obese, woman HEAD: atraumatic, normocep halic EYES: eomi, perrla, anicte srinivas, conjugate EARS: normal NOSE: septum intact NECK/THYROID: no jugular venous di stention, no carotid bruit, thyroid normal HEART: no clicks, gallops, murmurs, or rubs, regular rhythm, S1, S2 normal, no s3, or vascular bruits LUNGS: clear to auscultatio n ABDOMEN: bowel sounds normal, no ascites, no organomegaly, no mass, centripital obesity NEUROLOGIC: alert and oriented, cranial nerves 2-12 grossly intact, deep tendon reflexes 2+ symmetrical, motor strength normal upper and lower extremities, sensory exam intact SKIN: no suspicious lesion s, anicteric, Port-A-Cath right upper chest wall intact PERIPHERAL PULSES: normal BREASTS: no masses palpable b ilaterally MUSCULOSKELETAL: extremities unremark able, no clubbing, cyanosis or edema LYMPH NODES: no enlarged lymph no tori,spleen normal RECTAL EXAM: not examined PSYCH: alert, oriented ORAL CAVITY: normal, unremarkable
--- OUTSIDE RECORDS SUMMARY | 2025-03-07 14:31 | XMS_ITS | Clinical Summary ---
Author Organization [facility] Address [address] [place] [address] Phone Care Team Providers Care Fire Extinguisher Tester Name Role Phone Palmira Gonzalez MD Primary Care Provider Allergies Active Allergy Reactions Criticality Noted Date Comments Aspirin Rash Low 10/14/2017 Naproxen 10/14/2017 Medications atorvastatin (Lipitor) 20 MG tablet Take 1 tablet by mouth 1 (one) time each day Active FLUoxetine (PROzac) 20 MG tablet Take 1 tablet by mouth 1 (one) time each day Active lamoTRIgine (LaMICtal) 25 MG tablet Take 1 tablet by mouth 3 (three) times a day Active memantine (NAMENDA) 5 MG tablet Take 1 tablet by mouth 2 (two) times a day Active oxyCODONE (ROXICODONE) 5 MG immediate release tablet Take 1 tablet by mouth 2 (two) times a day Active phentermine (ADIPEX-P) 37.5 MG tablet Take 1 tablet by mouth 1 (one) time each day Active SUMAtriptan (IMITREX) 25 MG tablet as directed Active topiramate (TOPAMAX) 50 MG tablet Take 1 tablet by mouth 1 (one) time each day Active Active Problems Problem Noted Date Diagnosed Date Microscopic hematuria 02/23/2024 Obesity 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 08/23/2022 Anemia 04/23/2021 Proteinuria 04/23/2021 Resolved Problems Problem Noted Date Diagnosed Date Resolved Date Pure hypercholesterolemia 04/23/2021 Family History Medical History Relation Comments Diabetes Father Hypertension Father Diabetes Mother Hypertension Mother Relation Status Comments Father Alive Mother Social History Tobacco Use Types Packs/Day Years Used Date Smoking Tobacco: Never Assessed Comments Unknown Sex and Gender Information Value Date Recorded Sex Assigned at Not on file Legal Sex Female 4:58 PM EST Gender Identity Not on file Sexual Orientation Not on file Last Filed Vital Signs Vital Sign Reading Time Taken Comments Blood Pressure 110/62 02/23/2024 11:10 AM EDT Pulse 86 02/23/2024 11:10 AM EDT Temperature - - Respiratory Rate - - Oxygen Saturation 97% 02/23/2024 11:10 AM EDT Inhaled Oxygen Concentration - - Weight 89.4 kg (197 lb 3.2 oz) 02/23/2024 11:10 AM EDT Height - - Body Mass Index - - Plan of Treatment Health Maintenance Due Date Last Done Comments Breast Cancer Screening 1970 Hepatitis B Vaccine (1 of 3 - 19+ 3-dose series) 11/06 Pneumococcal Vaccine: 50+ Years (1 of 2 - PCV) 991 Colorectal Cancer Screening: Annual FOBT 2021 Colorectal Cancer Screening: Colonoscopy 2021 Colorectal Cancer Screening: Sigmoidoscopy 2021 Influenza Vaccine (Season Ended) 2025 Insurance Care Teams Fire Extinguisher Tester Relationship Specialty Start Date End Date Palmira Gonzalez MD [address] [place], [place] PCP - General 12/07/20
--- OUTSIDE RECORDS SUMMARY | 2025-03-07 14:31 | XMS_ITS ---
Author Organization Emil Chacon III, MD Address [address] [place] [address] Care Team Providers Care Rcp Name Role Phone MELODY CASTRO MD, RAMIRO Primary Care Provider Emil Vargas Unavailable [phone] Delvis LOZANO, Asma Unavailable Unavailable Allergies Allergen (clinical drug ingredient) Drug/Non Drug Allergy documented on EMR Reaction Allergy Type Onset Date Status No Known Drug Allergy Unknown Drug Allergy Active REASON FOR VISIT Tysabry Infusion, Multiple sclerosis Medications Medication SIG (Take, Route, Frequency, Duration) Notes Start Date End Date Status Topamax 25 MG 1 tablet Orally Once [...] needed Orally Three times a day Active hydrOXYzine HCl 50 MG 1 tablet as needed Orally every 6 hrs Active metFORMIN HCl 1000 MG 1 tablet with a me al Orally Once a day Active DULoxetine HCl 60 MG 1 capsule Orally On ce a day Active Atorvastatin Calcium 20 MG 1 tablet Oral ly Once a day Active Omeprazole 40 MG 1 capsule Orally Onc e a day Active Social History Tobacco Use: [...] Problem Status W/U Status Risk Notes Problem [id number] 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 Problem [id number] Low back pain (M54.5) Active confirmed Back pain has resolved for the time being. 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 At the end of the one hour infusion she was observed and had no reaction. Her port functioned well. 12/11/2024 Mixed hyperlipidemia (ICD-10 - E78.2) She will be referred back to primary care for addressing this issue. 12/11/2024 Non insulin dependen t diabetes mellitus with ophthalmic complication (ICD-10 - E11.39) No change in her regimen seems necessary. 12/11/[address]-a-[address] in [address] (ICD-10 - Z95.828) The port functioned well today.After use it was flushed with 10 cc of saline and 10 cc of heparin solution without difficulty. 12/11/2024 Low back pain (ICD-1 0 - M54.5) Back pain has resolved for the time being. 12/11/2024 Obesity (BMI 30-39.9 ) (ICD-10 - [...] primary care physician. We referred her to [facility] for mental health treatment. She denied being suicidal today. She was instructed that if she became suicidal or she could go to the emergency room at [facility] 24 hours a day and asked to see crisis. She will not return the way into she is seeing a mental health provider. She agreed to do this. She assured me that she was not suicidal. Plan Of Treatment Medication Medication Name Sig Start Date Stop Date Notes Topamax 25 MG 1 tablet Orally Once a day Lidocaine-Prilocaine 2.5-2.5 % USE DI RECTED APPLY OVER PORTACATH 1 HOURS PRIOR TO TREATMENT EXTERNALLY 30 DAYS Phentermine HCl 37.5 MG 1 tablet Orally Once a day oxyCODONE HCl 5 MG 1 tablet Orally twice a day Ibuprofen 800 MG 1 tablet with food o r milk as needed Orally Three times a day hydrOXYzine HCl 50 MG 1 tablet as needed Orally every 6 hrs metFORMIN HCl 1000 MG 1 tablet with a me al Orally Once a day DULoxetine HCl 60 MG 1 capsule Orally Once a day Atorvastatin Calcium 20 MG 1 tablet Orally Once a day Omeprazole 40 MG 1 capsule Orally Once a day Next Appt Details Follow Up: 4 Weeks, Reason: Tysabri infusion no tests Procedure Notes * Category Sub-Category Detail Notes Chemotherapy Start and End Time: 1:00 pm, 2:0 0 pm Site: [facility] Consent: verbal consent was o btained prior to procedure Medications given: Tysabri 300 mg Monitored by: HELENE Perez port flush flushed with 10cc of saline and 1:100 heparin solution route IV Progress Notes * JESSY WILSONOB: (54 yo F)Acc No.[id number]:12/11/2024 Patient:?NICOL WILSON Provider:?Emil Chacon MD :1970???Age:54 Y???Sex:Female D ate:12/11/2024 Address:[address], [place] Pcp:RAMIRO CASTRO MD Subjective: * Chief Complaints: * ???Tysabry InfusionMultiple sclerosis * HPI: ???COVID-19 Screening:? He returns to the office for another Tysabri infusion for her chronic relapsing multiple sclerosis.? Her port functioned well today.? Has been well.? She was treated today without incident. ?Questions?Have you had any new onset fever, chills, cough, congestion, sore throat, shortness of breath, muscle aches??No * ROS:?General/Constitutional:?pain?only normal aches and pains.?Chills?denies.?Fatigue?admits.?Fever?denies.?ENT:?Decreased hearing?denies.?Respiratory:?Cough?denies.?Cardiovascular:?Chest pain with exertion?denies.?Dyspnea on exertion?denies.?Shortness of breath?denies.?Gastrointestinal:?Constipation?occasional.?Decreased appetite?denies.?Diarrhea?denies.?Heartburn?denies.?Nausea?denies.?Rectal bleeding?denies.?Vomiting?denies.?Hematology:?bruising?denies.?petechiae?denies.?Swollen glands?none have been noted.?Genitourinary:?Frequent urination?denies.?Musculoskeletal:?Muscle aches?denies.?Painful joints?denies.?Sciatica?denies.?Weakness?denies.?Skin:?Itching?denies.?Rash?denies.?Skin lesion(s)?denies.?Neurologic:?Difficulty speaking?denies.?Dizziness?denies.?Headache?denies.?Low back pain?denies.?Psychiatric:?Depressed mood?which is mild.? * Medical History:? * Surgical History:?bariatric surgery: Gastric sleeve [id number] insertion right anterior chest wall, [facility] 2018right hand cyst removal 12/2017 * Hospitalization/Major Diagno stic Procedure:?hypotension 07/2019 * Family History:?Father: lionel romero 69 yrs, well.?Mother: 61 yrs, cad.? There is a history of multiple sclerosis in a sister and a cousin. She is not aware of any hereditary malignancies in the family. * Social History:?Tobacco Use:?Tobacco Use/Smoking?Patient is a?nonsmoker ?Additional Findings: Tobacco Non-User?Aggressive non-smoker ???She was born in [place], [place]. She is disabled and lives in [place], [place]. He is unemployed. She is Druze. * Medications:?TakinghydrOXYzi ne HCl 50 MG Tablet [...] ergyno[Allergies Verified] Objective: * Vitals:?Ht: 64, Wt: 191, BMI :32.78, BP: 110/74, HR: 68, Wt-k.64. * Examination: ???General Examination: ?GENERAL APPEARANCE:?pleasant, well nourished, well developed, in no acute distress, calm and relaxed, obese, woman.?HEAD:?atraumatic, normocephalic.?EYES:?eomi, perrla, anicteric, conjugate.?EARS:?normal.?NOSE:?septum intact.?ORAL CAVITY:?normal, unremarkable.?NECK/THYROID:?no jugular venous distention, no carotid bruit, thyroid normal.?LYMPH NODES:?no enlarged lymph nodes,spleen normal.?SKIN:?no suspicious lesions, anicteric, Port-A-Cath right upper chest wall intact functioning well.?HEART:?no clicks, gallops, murmurs, or rubs, regular rhythm, S1, S2 normal, no s3, or vascular bruits.?LUNGS:?clear to auscultation .?BREASTS:??no masses palpable bilaterally.?ABDOMEN:?bowel sounds normal, no ascites, no organomegaly, no mass.?RECTAL EXAM:?not examined.?MUSCULOSKELETAL:?extremities unremarkable, no clubbing, cyanosis or edema.?PERIPHERAL PULSES:?normal.?NEUROLOGIC:?alert and oriented, cranial nerves 2-12 grossly intact, deep tendon reflexes 2+ symmetrical, motor strength normal upper and lower extremities, sensory exam intact.?PSYCH:?alert, oriented, mood depressed.? Assessment: * Assessment: 1.?Multiple sclerosis - G35 (Primary)???Notes :She was treated with 300 mg of Tysabri through the port without incident. At the end of the one hour infusion she was observed and had no reaction. 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 Her body mass index is now 37.???7.?Reactive depression - F32.9???Notes :She was very sad today which she said was due to family problems. There was a in the family recently. She was in tears today saying she has no appetite. She has lost 3 pounds. She was thinking of stopping her treatment for MS. Although we are not her primary care physician. We referred her to [facility] for mental health treatment. She denied being suicidal today. She was instructed that if she became suicidal or she could go to the emergency room at [facility] 24 hours a day and asked to see crisis. She will not return the way into she is seeing a mental health provider. She agreed to do this. She assured me that she was not suicidal.??? Plan: * Treatment: 2.?Others? Continue Lidocaine-Prilocaine Cream, 2.5-2.5 %, USE DIRECTED APPLY OVER PORTACATH 1 HOURS PRIOR TO TREATMENT EXTERNALLY 30 DAYS.?? * Procedures:?Chemotherapy:?Start and End Time:?1:00 pm, 2:00 pm.?Site:?portacath.?Consent:?verbal consent was obtained prior to procedure.?Medications given:?Tysabri 300 mg.?Monitored by:?HELENE Perez.?port flush?flushed with 10cc of saline and 1:100 heparin solution.?route?IV.? * Procedure Codes:?16218 CHEMO , IV INFUSION, 1 [id number] NATALIZUMAB [id number] SALINE [id number] INJECTION HEPARIN SODIUM 10 [id number] REFILL/MAINT PUMP/RESVR SYST * Preventive Medicine:? ??Counseling:?Care goal follow-up plan:?Counseling for abnormal BMI given?Yes ?Above Normal BMI Follow-up?Dietary management education, guidance, and counseling, Dietary needs education ??DM Care Plan:?Patient Lifestyle Goals?Patient wants to be able to manage diabetes without too much effort.?Treatment Goals?HbA1C < 7.0, Blood Sugars less than < 115.?Barriers?no barriers.?Self-Managment Goals?Work on weight loss, with a goal of losing 1 lb per week.? * Follow Up:?4 Weeks (Reason: Tysabri infusion no tests) * Images: * Sign off status: Completed true * Provider:?Emil Chacon MD Date:?11/27 Generated for Leslie lucas/Thomas/eTransmitting on:?03/07/2025 02:31 PM EDT History and Physical Notes * [...] sounds normal, no ascites, no organomegaly, no mass NEUROLOGIC: alert and oriented, cranial nerves 2-12 grossly intact, deep tendon reflexes 2+ symmetrical, motor strength normal upper and lower extremities, sensory exam intact SKIN: no suspicious lesion s, anicteric, Port-A-Cath right upper chest wall intact functioning well PERIPHERAL PULSES: normal BREASTS: no masses palpable b ilaterally MUSCULOSKELETAL: extremities unremark able, no clubbing, cyanosis or edema LYMPH NODES: no enlarged lymph no tori,spleen normal RECTAL EXAM: not examined PSYCH: alert, oriented, moo d depressed ORAL CAVITY: normal, unremarkable
--- OUTSIDE RECORDS SUMMARY | 2025-03-07 14:31 | XMS_ITS | Encounter Summary ---
Author Organization [facility] Address [address] [place] [address] Care Team Providers Care Continuing Education Dean Name Role Phone Palmira Sutton MD Primary Care Provider [phone] Reason for Referral * Imaging (Emergency) - Pending Review Specialty Diagnoses / Procedures Referred By Contac t Referred To Contact Radiology Diagnoses Multiple sclerosis (CMS/HCC V24, CMS/HCC V28) Procedures MR Brain wo Contrast Sandeep Galvez MD [address] [address] Phone: tel: fax: [facility] Referral ID Status Reason Start Date Expiration Date V isits Requested Visits Authorized [id number] Pending Review 03/06/2025 03/06/2026 1 1 Encounter Details Date Type Department Care Team (Late st Contact Info) Description 03/06/2025 4:00 PM EDT Office Visit [facility] [address] [facility] [address] [facility] [address] [place] [address] Sandeep Galvez MD [address] [facility] [address] [place] [address] Multiple sclerosis (CMS/HCC V24, CMS/HCC V28) (Primary Dx) Social History Tobacco Use Types Packs/Day Years Used Date Smoking Tobacco: Never Smokeless Tobacco: Never Alcohol Use Standard Drinks/Week Comments Never 0 (1 standard drink = 0.6 oz pur e alcohol) Comments Unknown Sex and Gender Information Value Date Recorded Sex Assigned at Female 02/24/2025 1:15 PM EDT Legal Sex Female 11:36 PM EST Gender Identity Female 02/24/2025 1:15 PM EDT Sexual Orientation Straight 02/24/2025 1: 15 PM EDT documented as of this encounter Last Filed Vital Signs Vital Sign Reading Time Taken Comments Blood Pressure 116/74 03/06/2025 3:42 PM EDT Pulse 56 03/06/2025 3:42 PM EDT Temperature - - Respiratory Rate - - Oxygen Saturation 99% 03/06/2025 3:42 PM EDT Inhaled Oxygen Concentration - - Weight 87.5 kg (193 lb) 03/06/2025 3:42 PM EDT Height 157.5 cm (5' 2 ) 03/06/2025 3:42 PM EDT Body Mass Index 35.3 03/06/2025 3:42 PM EDT documented in this encounter Plan of Treatment Upcoming Encounters Date Type Department Care Team (Late st Contact Info) Description 05/06/2025 11:30 AM EDT Office Visit [facility] [address] [facility] [address] [place] [address] Auugsta Gallagher PA [address] [place] [address] Scheduled Orders Name Type Priority Associated Diagnoses Orde r Schedule MR Brain wo Contrast Imaging STAT Multiple sclerosis ([facility] V24, [facility] V28) Expected: 03/06/2025, Expires: 03/06/2026 documented as of this encounter Visit Diagnoses Diagnosis Multiple sclerosis ([facility] V24, [facility] V28)- Primary Multiple sclerosis documented in this encounter Care Teams Continuing Education Dean Relationship Specialty Start Date End Date Palmira Sutton MD [address] [place] [address] , [facility] [address] [facility] [place], [place] PCP - General 06/28/21 documented as of this encounter
--- OUTSIDE RECORDS SUMMARY | 2025-03-07 14:31 | XMS_ITS | Clinical Summary ---
Author Organization [facility] Address [address] [place] [address] Phone Care Team Providers Care Vice President For Philanthropy Name Role Phone Palmira Sutton MD Primary Care Provider [phone] Allergies Active Allergy Reactions Criticality Noted Date Comments Aspirin 11/30/2021 Iodinated Contrast Media 11/30/2021 Naproxen 11/30/2021 Medications atorvastatin (LIPITOR) 20 mg tablet Take 1 tablet (20 mg total) by mouth 1 (one) time each day. Active oxycodone HCl/acetaminoph en (OXYCODONE-ACET AMINOPHEN ORAL) Take by mouth. Active FLUoxetine (PROzac) 20 mg capsule Take 1 capsule (20 mg total) by mouth 1 (one) time each day. Active lamoTRIgine (LaMICtal XR) 25 mg tablet extended release 24hr 24 hr tablet Take 1 tablet (25 mg total) by mouth. Active Active Problems Problem Noted Date Diagnosed Date Class 2 obesity due to exces s calories with body mass index (BMI) of 36.0 to 36.9 in adult 12/27/2024 Encounters Date Type Department Care Team Description 03/06/2025 4:00 PM EDT Office Visit [facility] [address] [address] Sandeep Galvez MD Multiple sclerosis (CMS/HCC V24, CMS/HCC V28) (Primary Dx) 02/27/2025 9:33 AM EDT - 02/27/2025 11:59 PM EDT Hospital Encounter [facility] MRI [address] [place] [phone] Multiple sclerosis ([facility]/HCC V24, CMS/[facility] V28) Discharge Disposition: Home or Self Care 02/27/2025 9:29 AM EDT - 02/27/2025 11:59 PM EDT Hospital Encounter [facility] MRI [address] [place] [phone] Multiple sclerosis ([facility] V24, [facility] V28) Discharge Disposition: Home or Self Care 02/24/2025 12:56 PM EDT - 02/24/2025 3:12 PM EDT Emergency [facility] Emergency [address] [place] [phone] Charley Crooks DO Encounter for medical screening examination (Primary Dx) Discharge Disposition: Home or Self Care 02/04/2025 2:40 PM EDT Consult [facility] for [facility] [address] [facility] [address] [place] [phone] Sandeep Galvez MD Multiple sclerosis ([facility] V24, [facility] V28) (Primary Dx); Cognitive changes; High risk medication use from Last 3 Months Surgical History Surgery Date Site/Laterality Comments STOMACH SURGERY PROCEDURE: MD UNLISTED PROCEDURE STOMACH; COMMENT: gastric surgery OTHER SURGICAL HISTORY PROCEDURE: MD ASPIRATION&/INJECTION GANGLION CYST ANY LOCATJ Medical History Medical History Date Comments Bronchitis DX:Bronchitis Covid-19 DX:COVID-19 Left ankle pain DX:Left ankle pa in Left leg pain DX:Left leg pain Lumbar degenerative disc disease DX:Lumbar degenerative disc disease Microalbuminuria DX:Microalbumin uria Morbid obesity (CMS/HCC V24, [facility] V28) DX:Morbid obesity (HCC) Multiple sclerosis (CMS/HCC V24, [facility] V28) DX:Multiple sclerosis (HCC) Shortness of breath DX:Shortness of breath Social History Tobacco Use Types Packs/Day Years [...] Orientation Straight 02/24/2025 1: 15 PM EDT Obstetrics History Last Filed Vital Signs Vital Sign Reading Time Taken Comments Blood Pressure 116/74 03/06/2025 3:42 PM EDT Pulse 56 03/06/2025 3:42 PM EDT Temperature 35.9 ??C (96.6 ??F) 02/04/2025 2:04 PM ED T Respiratory Rate - - Oxygen Saturation 99% 03/06/2025 3:42 PM EDT Inhaled Oxygen Concentration - - Weight 87.5 kg (193 lb) 03/06/2025 3:42 PM EDT Height 157.5 cm (5' 2 ) 03/06/2025 3:42 PM EDT Body Mass Index 35.3 03/06/2025 3:42 PM EDT Plan of Treatment Upcoming Encounters Date Type Department Care Team (Late st Contact Info) Description 05/06/2025 11:30 AM EDT Office Visit [facility] [address] [place] [address] Augusta Gallagher PA [address] [place] [address] Health Maintenance Due Date Last Done Comments Breast Cancer Screening 1972 DTaP,Tdap,and Td Vaccines (1 - Tdap) 1991 Cervical Cancer Screening: P ap Smear 1993 Colorectal Cancer Screening: Colonoscopy 10/30/2022 Depression Screening 10/30/2022 HIV Screening 10/30/2022 Hepatitis C Screening 10/30/2022 Social Influencers of Health Screening 10/30/2022 Pneumococcal Vaccine: 50+ Years (1 of 1 - PCV) 2022 Zoster Vaccines (1 of 2) 2022 COVID-19 Vaccine (3 - 2023-2 5 season) 2024 08/18/2021, 07/29/2021 Hepatitis B Vaccines (2 of 2 - CpG 2-dose series) 03/26/2025 02/26/2025 Influenza Vaccine (Season Ended) 2025 10/31/2023, 08/27/2019, 08/16/2017 Cholesterol Screening (Lipid Panel) 01/25/2027 01/25/2022 HIB Vaccines Aged Out No longer eligi ble based on patient's age to complete this topic HPV Vaccines Aged Out No longer eligi ble based on patient's age to complete this topic Hepatitis A Vaccines Aged Out No long er eligible based on patient's age to complete this topic IPV Vaccines Aged Out No longer eligi ble based on patient's age to complete this topic MMR Vaccines Aged Out No longer eligi ble based on patient's age to complete this topic Meningococcal ACWY Vaccine Aged Out N o longer eligible based on patient's age to complete this topic Meningococcal B Vaccine Aged Out No l onger eligible based on patient's age to complete this topic Pneumococcal Vaccine: Pediatrics (0 to 5 Years) and At-Risk Patients (6 to 64 Years) Aged Out No longer eligible b ased on patient's age to complete this topic RSV Immunization Patients Under 20 months Aged Out No longer eligible b ased on patient's age to complete this topic Varicella Vaccines Aged Out No longer eligible based on patient's age to complete this topic Procedures Procedure Name Priority Date/Time Associated Diagnosis Comments MR THORACIC SPINE WO CONTRAST Routine 02/27/2025 12:22 PM EDT Multiple sclerosis (CMS/HCC V24, CMS/HCC V28) MR CERVICAL SPINE WO CONTRAST Routine 02/27/2025 11:00 AM EDT Multiple sclerosis (CMS/HCC V24, CMS/HCC V28) ECG ANNOTATED 02/25/2025 ECG OUTSIDE 02/25/2025 ECG 12-LEAD STAT 02/24/2025 2:21 PM EDT CBC WITH AUTO DIFFERENTIAL STAT 02/24/2025 2:12 PM EDT COMPREHENSIVE METABOLIC PANEL STAT 02/24/2025 2:12 PM EDT CBC AND DIFFERENTIAL STAT 02/24/2025 2:12 PM EDT DRUG ABUSE SCREEN 8A PANEL, URINE STAT 02/24/2025 1:17 PM EDT METHADONE SCREEN, URINE STAT 02/24/2025 1:17 PM EDT PHENCYCLIDINE, URINE STAT 02/24/2025 1:17 PM EDT BUPRENORPHINE SCREEN, URINE STAT 02/24/2025 1:17 PM EDT LIPID PANEL Routine 01/25/2022 from Last 3 Months or Most Recently Relevant to Health Maintenance Results * MR Thoracic Spine wo Contrast (02/27/2025 12:22 PM EDT) Anatomical Region Laterality Modality T-spine, Spine Magnetic Resonan ce 03/06/2025 11:3 5 AM EDT Impressions 03/06/2025 12:19 PM EDT Suggestion of a subtle demyelinating plaque in the right dorsal cord at T11-12. ??No other cord signal abnormality. -------- FINAL REPORT -------- Dictated By: Hiram Yuen Dictated Date: 03/06/2025 11:35 ET Assigned Physician: Hiram Yuen Reviewed and Electronically Signed By: Hiram Yuen Signed Date: 03/06/2025 12:19 ET Workstation ID: [id number] Transcribed By: Self Edit Transcribed Date: 03/06/2025 11:35 ET Narrative 03/06/2025 12:19 PM EDT PROCEDURE: Noncontrast MRI of the thoracic spine. HISTORY: Multiple Sclerosis. COMPARISON: None. TECHNIQUE: Multiplanar multisequence MRI of the thoracic spine without intravenous contrast administration. FINDINGS: Digital Archivist images demonstrate degenerative changes of the cervical and lumbar spine which are incompletely evaluated on this exam. The paraspinous soft tissues are normal. Normal alignment. ??No compression deformity. ??No suspicious marrow infiltrative lesion. ??A small T8 vertebral body hemangioma is incidentally noted. ??No disc herniation. ??No spinal or foraminal stenosis. The thoracic cord is normal in caliber and contour. ??There is suggestion of a subtle demyelinating plaque in the right dorsal cord at T11-12 (series 11, image 21). Procedure Note Hiram Yuen MD - 03/06/2025 PROCEDURE: Noncontrast MRI of the thoracic spine. HISTORY: Multiple Sclerosis. COMPARISON: None. TECHNIQUE: Multiplanar multisequence MRI of the thoracic spine withoutintravenous contrast administration. FINDINGS: Digital Archivist images demonstrate degenerative changes of the cervical and lumbarspine which are incompletely evaluated on this exam. The paraspinous soft tissues are normal. Normal alignment. No compression deformity. No suspicious marrowinfiltrative lesion. A small T8 vertebral body hemangioma is incidentallynoted. No disc herniation. No spinal or foraminal stenosis. The thoracic cord is normal in caliber and contour. There is suggestionof a subtle demyelinating plaque in the right dorsal cord at T11-12(series 11, image 21). IMPRESSION: Suggestion of a subtle demyelinating plaque in the right dorsal cord [id number]. No other cord signal abnormality. -------- FINAL REPORT -------- Dictated By: Hiram Yuen Dictated Date: 03/06/2025 11:35 ET Assigned Physician: Hiram Yuen Reviewed and Electronically Signed By: Hiram Yuen Signed Date: 03/06/2025 12:19 ET Workstation ID: [id number] Transcribed By: Self Edit Transcribed Date: 03/06/2025 11:35 ET Sandeep Galvez MD IM MRI PROCEDURES Final Result * MR Cervical Spine wo Contrast (02/27/2025 11:00 AM EDT) Anatomical Region Laterality Modality C-spine, Spine Magnetic Resonan ce 03/06/2025 11:5 9 AM EDT Impressions 03/06/2025 12:04 PM EDT 1. ??Prominent demyelinating plaque in the left dorsal cord at C2. 2. ??Right central protrusion which slightly indents the anterior cord at C6-7. -------- FINAL REPORT -------- Dictated By: Hiram Yuen Dictated Date: 03/06/2025 11:59 ET Assigned Physician: Hiram Yuen Reviewed and Electronically Signed By: Hiram Yuen Signed Date: 03/06/2025 12:04 ET Workstation ID: [id number] Transcribed By: Self Edit Transcribed Date: 03/06/2025 11:59 ET Narrative 03/06/2025 12:04 PM EDT PROCEDURE: MRI of the cervical spine without intravenous contrast. TECHNIQUE: Sagittal and axial multisequence MRI of the cervical spine without intravenous contrast administration. HISTORY: Multiple sclerosis, baseline COMPARISON: No prior study available for comparison. FINDINGS: The visualized portions of the brain and skull base are normal. Paraspinous soft tissues are normal. Normal alignment. ??No concerning marrow infiltrative lesion. ??Small hemangioma in the C6 vertebral body. ??Mild Modic endplate changes at C6-7. Large ill-defined demyelinating plaque in the left dorsal cord at C2. ??No other cord signal abnormality. Cervical disc levels: C2-3: Minimal degenerative irregularity of the vertebral endplates and facet joints. ??No spinal or foraminal stenosis. C3-4: Minimal degenerative irregularity of the endplates and facet joints. ??Minimal bilateral uncovertebral spurs. ??No spinal or foraminal stenosis. C4-5: Mild degenerative irregularity of the vertebral endplates. ??Mild left facet arthropathy. ??No spinal or foraminal stenosis. C5-6: Minimal endplate irregularity. ??Minimal anterior endplate osteophytes. ??Small broad-based central protrusion. ??Minimal degenerative irregularity of the facet joints. ??No spinal or foraminal stenosis. C6-7: Mild endplate irregularity. ??Minimal anterior endplate osteophytes. ??Small bilateral uncovertebral spurs. ??Moderate right central focal protrusion which indents the cord. ??No significant spinal or foraminal stenosis. C7-T1: Minimal endplate irregularity without spinal or foraminal stenosis. Procedure Note Hiram Yuen MD - 03/06/2025 PROCEDURE: MRI of the cervical spine without intravenous contrast. TECHNIQUE: Sagittal and axial multisequence MRI of the cervical spinewithout intravenous contrast administration. HISTORY: Multiple sclerosis, baseline COMPARISON: No prior study available for comparison. FINDINGS: The visualized portions of the brain and skull base are normal. Paraspinous soft tissues are normal. Normal alignment. No concerning marrow infiltrative lesion. Smallhemangioma in the C6 vertebral body. Mild Modic endplate changes atC6-7. Large ill-defined demyelinating plaque in the left dorsal cord at C2. Noother cord signal abnormality. Cervical disc levels: C2-3: Minimal degenerative irregularity of the vertebral endplates andfacet joints. No spinal or foraminal stenosis. C3-4: Minimal degenerative irregularity of the endplates and facet joints.Minimal bilateral uncovertebral spurs. No spinal or foraminalstenosis. C4-5: Mild degenerative irregularity of the vertebral endplates. Mildleft facet arthropathy. No spinal or foraminal stenosis. C5-6: Minimal endplate irregularity. Minimal anterior endplateosteophytes. Small broad-based central protrusion. Minimal degenerativeirregularity of the facet joints. No spinal or foraminal stenosis. C6-7: Mild endplate irregularity. Minimal anterior endplate osteophytes.Small bilateral uncovertebral spurs. Moderate right central focalprotrusion which indents the cord. No significant spinal or foraminalstenosis. C7-T1: Minimal endplate irregularity without spinal or foraminalstenosis. IMPRESSION: 1. Prominent demyelinating plaque in the left dorsal cord at C2. 2. Right central protrusion which slightly indents the anterior cord atC6-7. -------- FINAL REPORT -------- Dictated By: Hiram Yuen Dictated Date: 03/06/2025 11:59 ET Assigned Physician: Hiram Yuen Reviewed and Electronically Signed By: Hiram Yuen Signed Date: 03/06/2025 12:04 ET Workstation ID: [id number] Transcribed By: Self Edit Transcribed Date: 03/06/2025 11:59 ET Sandeep Galvez MD IMG MRI PROCEDURES Final Result * ECG-Outside (02/25/2025) Provider Onbase ECG ORDERABLES Final Result * ECG-Annotated (02/25/2025) Provider Onbase ECG ORDERABLES Final Result * ECG 12 lead (02/24/2025 2:21 PM EDT) Ventricular Rate ECG 84 BPM GEMUSE Atrial Rate 84 BPM GEMUSE P-R Interval 138 ms GEMUSE QRS Duration 76 ms GEMUSE Q-T Interval 386 ms GEMUSE QTc 456 ms GEMUSE P Wave [place] 59 degrees GEMUSE R [place] 8 degrees GEMUSE T [place] 40 degrees GEMUSE ECG Interpretation Normal sinus rhythm Normal ECG When compared with ECG of 22-FEB-2023 08:32, Vent. rate has increased BY ??29 BPM QT has lengthened Confirmed by PETER COOK ([id number]) on 02/25/2025 1:32:20 PM GEMUSE 02/24/2025 2:21 PM EDT 02/25/2025 1:32 PM EDT Ever Ortiz MD ECG ORDERABLES Final Resul t GEMUSE * (ABNORMAL) CBC auto differential (02/24/2025 2:12 PM EDT) Pathologist [facility] WBC 11.3(H) 4.8 - 10.8 K/mcL LAB HEMETOLOGY METHOD 02/24/2025 2:34 PM EDT [facility] RBC 4.10 3.80 - 4.80 M/mcL LAB HEMETOLOGY METHOD 02/24/2025 2:34 PM EDT [facility] Hemoglobin 12.2 11.5 - 16.0 g/dL LAB HEMETOLOGY METHOD 02/24/2025 2:34 PM EDT [facility] Hematocrit 37.9 35.0 - 47.0 % LAB HEMETOLOGY METHOD 02/24/2025 2:34 PM EDT [facility] MCV 93.1 79.0 - 98.0 FL LAB HEMETOLOGY METHOD 02/24/2025 2:34 PM EDT [facility] MCH 30.0 27.0 - 32.0 pcg LAB HEMETOLOGY METHOD 02/24/2025 2:34 PM EDT [facility] MCHC 32.2 32.0 - 37.0 g/dL LAB HEMETOLOGY METHOD 02/24/2025 2:34 PM EDT [facility] RDW 13.4 11.0 - 15.0 % LAB HEMETOLOGY METHOD 02/24/2025 2:34 PM EDT [facility] Platelets 379 130 - 400 K/mcL LAB HEMETOLOGY METHOD 02/24/2025 2:34 PM EDT [facility] MPV 8.8 7.0 - 11.0 FL LAB HEMETOLOGY METHOD 02/24/2025 2:34 PM EDT [facility] NRBC 0.0 <1.0 % LAB HEMETOLOGY METHOD 02/24/2025 2:34 PM EDT [facility] NRBC Absolute 0.00 <0.10 K/mcL LAB HEMETOLOGY METHOD 02/24/2025 2:34 PM EDT [facility] Neutrophils Relative 70.1 % [facility] Lymphocytes Relative 22.2 % LAB HEMETOLOGY METHOD 02/24/2025 2:34 PM EDT [facility] Monocytes Relative 6.1 % LAB HEMETOLOGY METHOD 02/24/2025 2:34 PM EDT [facility] Eosinophils Relative 0.8 % LAB HEMETOLOGY METHOD 02/24/2025 2:34 PM EDT [facility] Basophils Relative 0.4 % [facility] Immature Granulocytes Relative 0.4 % LAB HEMETOLOGY METHOD 02/24/2025 2:34 PM EDT [facility] Neutrophils Absolute 7.95(H) 1.50 - 7.00 K/mcL LAB HEMETOLOGY METHOD 02/24/2025 2:34 PM EDT [facility] Lymphocytes Absolute 2.52 1.00 - 5.00 K/mcL LAB HEMETOLOGY METHOD 02/24/2025 2:34 PM EDT [facility] Monocytes Absolute 0.69 0.20 - 1.00 K/mcL LAB HEMETOLOGY METHOD 02/24/2025 2:34 PM EDT [facility] Eosinophils Absolute 0.09 0.00 - 0.50 K/[facility] LAB HEMETOLOGY METHOD 02/24/2025 2:34 PM EDT [facility] Basophils Absolute 0.05 0.00 - 0.20 K/mcL LAB HEMETOLOGY METHOD 02/24/2025 2:34 PM EDT [facility] Immature Granulocytes Absolute 0.04(H) 0.00 - 0.03 K/[facility] LAB HEMETOLOGY METHOD 02/24/2025 2:34 PM EDT [facility] Blood Venous blood specimen / Unknown Venipuncture / Unknown 02/24/2025 2:12 PM EDT 02/24/2025 2:26 PM EDT us Ever Ortiz MD LAB BLOOD ORDERABLES Final Result [facility] [address] [place] [address], * (ABNORMAL) Comprehensive metabolic panel (02/24/2025 2:12 PM EDT) Sodium 147(H) 133 - 145 mmol/L LAB CHEMISTRY METHOD 02/24/2025 2:56 PM EDT [facility] Potassium 3.3(L) 3.5 - 5.5 mmol/L LAB CHEMISTRY METHOD 02/24/2025 2:56 PM EDT [facility] Chloride 116(H) 96 - 110 mmol/L LAB CHEMISTRY METHOD 02/24/2025 2:56 PM [facility] CO2 24 21 - 32 mmol/L LAB CHEMISTRY METHOD 02/24/2025 2:56 PM [facility] Anion Gap 7 3 - 11 LAB CHEMISTRY METHOD 02/24/2025 2:56 PM [facility] Glucose 84 70 - 100 mg/dL LAB CHEMISTRY METHOD 02/24/2025 2:56 PM [facility] BUN 14 5 - 25 mg/dL LAB CHEMISTRY METHOD 02/24/2025 2:56 PM [facility] Creatinine 0.36(L) 0.50 - 1.10 mg/dL LAB CHEMISTRY METHOD 02/24/2025 2:56 PM [facility] eGFR 122 >=60 mL/min/1. 73m2 LAB CHEMISTRY METHOD 02/24/2025 2:56 PM [facility] Comment:Calculation based on the??Chronic Kidney Disease Epidemiology Collaboration (CKD-EPI) equation refit??without adjustment for race. BUN/Creatinine Ratio 38.9 LAB CHEMISTRY METHOD 02/24/2025 2:56 PM [facility] Calcium 7.6(L) 8.5 - 10.5 mg/dL LAB CHEMISTRY METHOD 02/24/2025 2:56 PM [facility] AST (SGOT) 27 10 - 42 unit/L LAB CHEMISTRY METHOD 02/24/2025 2:56 PM [facility] ALT (SGPT) 46 10 - 60 unit/L LAB CHEMISTRY METHOD 02/24/2025 2:56 PM [facility] Alkaline Phosphatase 63 42 - 121 unit/L LAB CHEMISTRY METHOD 02/24/2025 2:56 PM [facility] Total Protein 5.9(L) 6.0 - 8.0 g/dL LAB CHEMISTRY METHOD 02/24/2025 2:56 PM EDT [facility] Albumin 2.9(L) 3.2 - 5.0 g/dL LAB CHEMISTRY METHOD 02/24/2025 2:56 PM EDT [facility] Total Bilirubin 0.3 0.0 - 1.4 mg/dL LAB CHEMISTRY METHOD 02/24/2025 2:56 PM EDT [facility] Blood Venous blood specimen / Unknown Venipuncture / Unknown 02/24/2025 2:12 PM EDT 02/24/2025 2:26 PM EDT us Ever Ortiz MD LAB BLOOD ORDERABLES Final Result [facility] [address] [place] [address], [place] [phone] * (ABNORMAL) Drug abuse screen 8a panel, urine (02/24/2025 1:17 PM EDT) Amphetamine Screen, Ur Negative Negative LAB CHEMISTRY METHOD 5 2:32 PM EDT [facility] Comment:Certain OTC medicati ons containing ephedrine, phenylephrine, pseudoephedrine and phenylpropanolamine can cause false positive results. Barbiturate Screen, Ur Negative Negative LAB CHEMISTRY METHOD 5 2:32 PM EDT [facility] Benzodiazepine Screen, Ur Negative Negative LAB CHEMISTRY METHOD 5 2:32 PM EDT [facility] Cocaine Screen, Ur Negative Negative LAB CHEMISTRY METHOD 5 2:32 PM EDT [facility] Opiate Screen, Ur Negative Negative LAB CHEMISTRY METHOD 5 2:32 PM EDT [facility] Cannabinoid (THC) Screen, Ur Positive(A ) Negative LAB CHEMISTRY METHOD 5 2:32 PM EDT [facility] Comment:Specimens from patie nts taking pantoprazole sodium (Protonix) have been shown to produce false positive results. Oxycodone Screen, Ur Negative Negative LAB CHEMISTRY METHOD 5 2:32 PM EDT [facility] Fentanyl, Ur Negative Negative LAB CHEMISTRY METHOD 5 2:32 PM EDT [facility] Urine Urine specimen obtained by clean catch procedure / Unknown Non-blood Collection / Unknown 02/24/2025 1:17 PM EDT 02/24/2025 1:34 PM EDT Narrative [facility] - 02/24/2025 2:32 PM EDT Assay cutoffs: Amphetamines ? 1000 ng/mL Barbiturates ?200 ng/mL Benzodiazepines ?? 200 ng/mL Cocaine ? 300 ng/mL Fentanyl ?1 ng/mL Opiates ? 300 ng/mL Oxycodone ? 100 ng/mL THC ?50 ng/mL Semi-quantitative assay for screening purposes only. Unconfirmed screening result should not be used for non-medical purposes. *ALTERNATE METHOD CONFIRMATION DONE UPON REQUEST ONLY* Ever Ortiz MD LAB URINE ORDERABLES Final Result [facility] [address] [place] [address], * Buprenorphine screen, urine (02/24/2025 1:17 PM EDT) Buprenorphine Screen Urine Negative Negative LAB CHEMISTRY METHOD 02/24/2025 2:32 PM EDT [facility] Urine Urine specimen obtained by clean catch procedure / Unknown Non-blood Collection / Unknown 02/24/2025 1:17 PM EDT 02/24/2025 1:34 PM EDT Narrative [facility] - 02/24/2025 2:32 PM EDT Assay cutoff 5 ng/mL Semi-quantitative assay for screening purposes only. Unconfirmed screening result should not be used for non-medical purposes. *ALTERNATE METHOD CONFIRMATION DONE UPON REQUEST ONLY* Ever Ortiz MD LAB URINE ORDERABLES Final Result Performing Organization Address [facility]/[employer] Phone Number [facility] [address] [place] [address], [place] [phone] * Methadone, urine (02/24/2025 1:17 PM EDT) Methadone Screen, Urine Negative Negative LAB CHEMISTRY METHOD 02/24/2025 2:32 PM EDT [facility] Comment: Assay cutoff 300 ng/mL Semi-quantitative assay for screening purposes only. Unconfirmed screening result should not be used for non-medical purposes. *ALTERNATE METHOD CONFIRMATION DONE UPON REQUEST ONLY* Urine Urine specimen obtained by clean catch procedure / Unknown Non-blood Collection / Unknown 02/24/2025 1:17 PM EDT 02/24/2025 1:34 PM EDT Ever Ortiz MD LAB URINE ORDERABLES Final Result Performing Organization Address [facility] de Phone Number [facility] [address] [place] [address], [place] [phone] * Phencyclidine, urine (02/24/2025 1:17 PM EDT) PCP Scrn, Ur Negative Negative LAB CHEMISTRY METHOD 02/24/2025 2:36 PM EDT [facility] Comment: Assay cutoff 25 ng/mL Semi-quantitative assay for screening purposes only. Unconfirmed screening result should not be used for non-medical purposes. *ALTERNATE METHOD CONFIRMATION DONE UPON REQUEST ONLY* Urine Urine specimen obtained by clean catch procedure / Unknown Non-blood Collection / Unknown 02/24/2025 1:17 PM EDT 02/24/2025 1:34 PM EDT Ever Ortiz MD LAB URINE ORDERABLES Final Result [facility] [facility] ([facility]) [facility] [address] [place] [address], * (ABNORMAL) Lipid panel (01/25/2022) LDL/HDL Ratio 4 0 - 4 Triglycerides 187(A) 0 - 150 mg/dL Cholesterol 141 0 - 200 mg/dL HDL 40 >=40 mg/dL LDL Cholesterol 64 0 - 100 mg/dL Blood Venous blood specimen / Unknown Historical Provider LAB BLOOD ORDERABLES Aye l Result from Last 3 Months or Most Recently Relevant to Health Maintenance [place] [address] [place] [address] [place] [address] Care Teams Vice President For Philanthropy Relationship Specialty Start Date End Date Palmira Sutton MD [address] [place] [address] , [address] [facility] [place] PCP - General 06/28/21
--- OUTSIDE RECORDS SUMMARY | 2025-03-07 14:31 | XMS_ITS ---
Author Organization Emil Chacon III, MD Address [address] [place] [address] Care Team Providers Care Human Services Professional Name Role Phone MELODY CASTRO MD, RAMIRO Primary Care Provider Emil Vargas Unavailable [phone] Delvis LOZANO, Asma Unavailable Unavailable REASON FOR VISIT Message Social History Sex Assigned At : Social History Observation Description Sex Assigned At Female Encounters Encounter Location Date Provider Diagnosis Emil Chacon III, MD [address] [place] [address] [address] [place] [address] 12/31/2024 Emil Chacon Plan Of Treatment No Information Progress Notes * JESSY WILSONOB: (54 yo F)Acc No.[id number]:12/31/2024 Patient:?JOSE VIZCAINONICOL :1970???Age:54 Y???Sex:Female Address:[address] [place] [address], [address], [place], [address] * true * Date:? Generated for Printi shayy/Thomas/eTransmitting on:?03/07/2025 02:30 PM EDT
== END 2025-03-07 15:08 | disposition home or self-care (01) ==
LOC: HO.HMCH 14:10
PROVIDERS: PCP Internal Medicine; Visit Provider Nurse Practitioner Family
DX: R42 Dizziness and giddiness (principal)

== ENCOUNTER → 2025-03-07 14:09 | Outpatient (BNVA) | payer OTHER, SELFPAY | PROVIDERS: PCP Internal Medicine; Visit Provider Nurse Practitioner Family | DX: R42 Dizziness and giddiness (principal) | CPT/HCPCS: 99212 ==

== ENCOUNTER 2025-05-15 12:49 | Outpatient (AMB) | payer OTHER, SELFPAY ==
--- OUTSIDE RECORDS SUMMARY | 2024-12-31 10:01 | XMS_ITS ---
Author Organization Emil Chacon III, MD Address [address] [place] [address] Care Team Providers Care [employer] Assistant Principal Name Role Phone MELODY CASTRO MD, RAMIRO Primary Care Provider Emil Vargas Unavailable [phone] Delvis LOZANO, Asma Unavailable Unavailable REASON FOR VISIT Message Social History Sex Assigned At : Social History Observation Description Sex Assigned At Female Encounters Encounter Location Date Provider Diagnosis Emil Chacon III, MD [address] [place] [address] [address] [place] [address] 12/31/2024 Emil Chacon Plan Of Treatment No Information Progress Notes * JESSY WILSONOB: (54 yo F)Acc No.[id number]:12/31/2024 Patient: Danny IBRAHIM KINJAL VIZCAINO :1970 A ge:54 Y S ex:Female Address:[address] [place] [address], [address], [place], [address] * true * Date: Generated for Printi ng/Faxing/eTransmitting on: 0 05/15/2025 01:53 PM EDT
--- NOTE | 2025-05-15 13:02 | MHC.PC.OV ---
Vital Signs 05/15/25 13:04 Height 5 ft 3 in Weight 193 lb BMI 34.2 BP 124/82 Blood Pressure Location Lt brachial Position Sitting Intake Visit Reasons: PE Intake Note: Patient here for a physical exam Morning Show Host Required: No Accompanied by: Self / Same As Patient Allergies Iodinated Contrast Media (IV CONTRAST) Allergy (Severe, Verified 05/15/25 13:16) ANAPHYLAXIS aspirin (ASPIRIN) Allergy (Intermediate, Verified 05/15/25 13:16) ITCH, rash naproxen (From NAPROSYN) Allergy (Intermediate, Verified 05/15/25 13:16) ITCHINESS baclofen Adverse Reaction (Unknown, Verified 05/15/25 13:16) Unknown bupropion Adverse Reaction (Unknown, Verified 05/15/25 13:16) unknown memantine Adverse Reaction (Unknown, Verified 05/15/25 13:16) unknown Medication List - Last Reconciled 05/15/25 by Palmira Sutton MD albuterol sulfate 2.5 mg (3 mL) inhalation Q4-6H PRN 30 days baclofen 10 mg PO BEDTIME [cannabis PO] cholecalciferol (vitamin D3) 1,250 mcg PO QWEEK fluocinolone acetonide oil 0.01% (DermOtic Oil) 5 drps otic (ears) BID 7 days fluoxetine 40 mg PO DAILY 90 days ketoconazole 2% 1 appl topical 2XW 30 days magnesium oxide 400 mg PO BEDTIME meclizine (Dramamine (meclizine)) 25 mg PO BID PRN nebulizers (AeroEclipse II Nebulizer) As directed ocrelizumab (Ocrevus) 300 mg IV Q2W omeprazole 20 mg PO DAILY PRN 90 days oxycodone 10 mg PO Q8H PRN 30 days selenium sulfide 2.3% 1 appl topical QWEEK 30 days selenium sulfide 1% (Dandruff Shampoo (selenium sulfide)) 5 mL topical 2XW PRN 30 days simethicone 160 mg PO BID triamcinolone acetonide 0.5% 1 appl topical BID PRN 30 days ursodiol 300 mg PO BID Ventolin HFA 90 mcg/actuation (albuterol sulfate) 2 puffs inhalation Q6H PRN 30 days NS Tobacco use date assessed: 03/07/25 Dental Screening Dental Screen Date: 03/07/25 HPI HPI Comments History of Present Illness Details The patient is a 54-year-old female presenting for a physical examination and management of chronic conditions. She reports having received a Tdap vaccine at a pharmacy less than ten years ago, although records are unavailable to confirm this. She is scheduled for a colon cancer screening using a stool test, as she is not undergoing a colonoscopy at this time. The patient had a mammogram last year, but records are not available for review. Her PHQ-9 score is 15, indicating mild to moderate recurrent depression, and she admits to non-compliance with her fluoxetine medication. She experiences ear itchiness and has been diagnosed with seborrheic dermatitis of the scalp, for which she requires a medicated shampoo. Additionally, she requests a cream for her feet. The patient has a history of multiple sclerosis and is followed by [facility]. Her last MRI in February showed demyelinating plaques, and she is positive for the YESSI virus. Pap smears are up to date according to her senior clinician. [facility] Medical History (Updated 05/15/25 @ 13:45 by Palmira Sutton MD) Dizziness Cervicalgia Chronic migraine with aura Hypersomnia Insomnia Snoring Gait abnormality Cervicalgia Multiple sclerosis Hypovitaminosis D Mild recurrent major depression Abnormal EKG Bronchitis Morbid obesity Left leg pain Shortness of breath COVID-19 Microalbuminuria Multiple sclerosis Left ankle pain Lumbar degenerative disc disease Surgical History History of sleeve gastrectomy H/O colonoscopy S/P excision of ganglion cyst History of gastric surgery Family History Father Prostate cancer Colon cancer Mother CAD (coronary artery disease) Son No problems noted. Son No problems noted. Son No problems noted. Daughter No problems noted. Social History Housing: Apartment Alcohol intake: never Patient Tobacco Use Status: Never used Tobacco e-Cigarette/Vaping Use: Never Used Second Hand Smoke Exposure: No service: No Current occupational status: disabled Cognitive needs: No Hearing needs: No Vision needs: No Questionnaire PHQ-9 Over the last 2 weeks, how often have you been bothered by any of the following problems? 1. Little interest or pleasure in doing things: more than half the days 2. Feeling down, depressed, or hopeless: nearly every day 3. Trouble falling or staying asleep, or sleeping too much: several days 4. Feeling tired or having little energy: nearly every day 5. Poor appetite or overeating: several days 6. Feeling bad about yourself - or that you are a failure or have let yourself or your family down: several days 7. Trouble concentrating on things, such as reading the newspaper or watching television: nearly every day 8. Moving or speaking so slowly that other people could have noticed. Or the opposite - being so fidgety or restless that you have been moving around a lot more than usual: not at all 9. Thoughts that you would be better off or of hurting yourself in some way: several days Total score: 15 Depression Screening Interpretation: Positive (no suicidal thoughts) Depression Screening Follow-up: Existing condition, In treatment, Community Mental Health Worker F/U and Follow-up Visit Requested Depression Screening Done: Yes 83994 - PHQ-9 Billing: Yes Source: Developed by Drs. Emil Newell, Shayy Ruiz, Hebert Sotelo and colleagues, with an educational colt from [employer]. Thrive Questionnaire Date Thrive assessed: 05/15/25 I am a: Patient What is your living situation today?: I have a steady place to live Within the past 12 months, did the food you bought not last and you didn't have the money to get more?: Never true Within the past 12 months, did you worry whether your food would run out before you got money to buy more?: Never true Do you have trouble paying for medicines?: No Do you have trouble getting transportation to medical appointments?: No Do you have trouble paying your heating and electricity bill?: No Do you have trouble taking care of your child, family member or friend?: No Do you have trouble with day-to-day activities such as bathing, preparing meals, shopping, managing finances, etc.?: No Are you currently unemployed and looking for a job?: No Are you interested in more education?: No Please select the resources that you would like help with: None Currently or been in a relationship where the following occur: No concerns reported THRIVE Score: 0 AUDIT C Alcohol Use Questionnaire (AUDIT-C) 1. How often do you have a drink containing alcohol?: Never Total Score: 0 ABDIEL-7 AMB Questionnaire ABDIEL-7 Date ABDIEL - 7 assessed: 05/15/25 Feeling nervous, anxious, or on edge: 1 = Several days Not being able to stop or control worryin = Not at all Worrying too much about different things: 1 = Several days Trouble relaxin = Not at all Being so restless that it is hard to sit still: 0 = Not at all Becoming easily annoyed or irritable: 1 = Several days Feeling afraid as if something awful might happen: 0 = Not at all Total ABDIEL-7 score (0-4 normal; 5-9 mild; 10-14 moderate; 15-21 severe): 3 Source: Developed by Drs. Emil Newell, Shayy Ruiz, Hebert Sotelo and colleagues, with an educational colt from [employer]. ABDIEL-7 Assessment Billing ABDIEL-7 Assessment Tool: ABDIEL-7 Assessment 76411 Review of Systems Const All systems reviewed & are unremarkable except as noted in HPI and below Card Denies chest pain at rest, Denies chest pain with activity, Denies edema, Denies irregular heart rhythm, Denies claudication, Denies dyspnea, Denies dyspnea on exertion, Denies orthopnea, Denies paroxysmal nocturnal dyspnea and Denies slow heart rate Resp Denies cough, Denies dyspnea and Denies dyspnea on exertion GI Denies abdominal pain, Denies change in bowel habits, Denies excessive flatus, Denies nausea and Denies vomiting Denies urinary incontinence, Denies urinary hesitancy and Denies urinary urgency Musc Denies abnormal gait, Denies atrophy, Denies deformity and Denies limited range of motion Skin/Breast Denies bleeding lesions, Denies changing lesions and Denies rash Neuro Denies abnormal gait, Denies behavioral changes and Denies lack of coordination Psych Denies behavioral changes Physical exam (Primary Care) BMI result Body Mass Index 34.2 BMI Assessment/Plan discussion: High BMI High, discussed plan: lifestyle, weight reduction, dietary and physical activity Tobacco/Smoking Status: Tobacco use Status Tobacco use date assessed 03/07/25 05/15/25 13:12 Patient Tobacco Use Status Never used Tobacco 05/15/25 13:12 e-Cigarette/Vaping Use Never Used 05/15/25 13:12 PHQ-9: PHQ-9 Score PHQ-9: Total score 15 05/15/25 13:12 Depression Screening Interpretation: Positive (no suicidal thoughts) Depression Screening Follow-up: Existing condition, In treatment, Community Mental Health Worker F/U and Follow-up Visit Requested Thrive Assessment: Date of Thrive Assessment Date Thrive assessed 05/15/25 05/15/25 13:12 Currently or been in a relationship where the following occur: No concerns reported HENTN Head: Yes normal to inspection, Yes normocephalic and Yes atraumatic Ears: external ears normal Eyes General: appearance normal, both eyes and all related structures Eyelids: Yes eyelids normal Conjunctivae: conjunctivae normal Neck Neck: Yes normal visual inspection and Yes supple Resp Effort & Inspection: normal respiratory effort Auscultation: clear to auscultation bilaterally Cardio Jugular venous distension: no JVD Rate: regular rate Rhythm: regular rhythm Heart sounds: S1 normal heart sound present and S2 normal heart sound present GI Inspection: Yes normal to inspection Palpation (GI): Soft to palpation and nontender Auscultation: normal bowel sounds Skin General skin exam: no rashes or lesions noted Neuro General: no focal motor deficits Extrem General: Yes full ROM Psych Appearance: grossly normal Coding Level of Care Code Est Pt Level 3 (87149) Est Pt Prev Care 40-64y(77662) Diagnoses Physical exam Z00.00 Seborrheic dermatitis of scalp L21.9 Ear itch L29.9 Multiple sclerosis G35 Mild recurrent major depression F33.0 Additional Codes PHQ-9 - 50233 - PHQ-9 Billing: Yes ([id number]) ABDIEL-7 Assessment Billing - ABDIEL-7 Assessment Tool: ABDIEL-7 Assessment 48024 ([id number]) Time Spent (min) 35 Assessment & Plan Assessment & Plan (1) Physical exam: Code(s): Z00.00 - Encounter for general adult medical examination without abnormal findings Category: Medical (2) Seborrheic dermatitis of scalp: Code(s): L21.9 - Seborrheic dermatitis, unspecified Category: Medical (3) Ear itch: Code(s): L29.9 - Pruritus, unspecified Category: Medical (4) Multiple sclerosis: Code(s): G35 - Multiple sclerosis Category: Medical (5) Mild recurrent major depression: Code(s): F33.0 - Major depressive disorder, recurrent, mild Category: Medical Plan The patient will continue with her scheduled colon cancer screening using a stool test, as she is not undergoing a colonoscopy at this time. She should ensure compliance with her fluoxetine medication to manage her depression, as her PHQ-9 score indicates mild to moderate recurrent depression. For her seborrheic dermatitis, a medicated shampoo will be prescribed to alleviate symptoms of scalp itchiness. Additionally, a cream will be provided for her feet as requested. The patient will continue to be monitored by [facility] for her multiple sclerosis, with regular follow-ups to assess the progression of demyelinating plaques as observed in her last MRI. Patient was informed and verbally consented to the use of an ambient scribe for clinic note documentation during this visit. Orders: Orders IRON PROFILE Today D64.9 - Anemia, unspecified Lipid Panel Today E78.5 - Hyperlipidemia, unspecified Complete Blood Count Auto Diff Today D64.9 - Anemia, unspecified Vitamin D 25-OH Total Today E55.9 - Vitamin D deficiency, unspecified Comprehensive [place]. Panel Fast Today E78.00 - Pure hypercholesterolemia, unspecified Medications: New fluocinolone acetonide oil 0.01% (DermOtic Oil) 5 drps otic (ears) BID 20 mL 0RF 7 days L29.9 - Pruritus, unspecified selenium sulfide 1% (Dandruff Shampoo (selenium sulfide)) lather into wet hair; leave in place for approximately 3 mins ; rinse 5 mL topical 2XW PRN 207 mL 1RF scalp dermatitis 30 days L21.9 - Seborrheic dermatitis, unspecified
[2025-05-15 13:04] VITALS: BP 124/82; BMI 34.2
== END 2025-05-15 13:36 | disposition home or self-care (01) ==
PROVIDERS: PCP Internal Medicine; Visit Provider Internal Medicine
DX: Z00.00 Encounter for general adult medical examination without abnormal findings (principal); G35 Multiple sclerosis; L21.9 Seborrheic dermatitis, unspecified; L29.9 Pruritus, unspecified; F33.0 Major depressive disorder, recurrent, mild

== ENCOUNTER → 2025-05-15 12:49 | Outpatient (BNVA) | payer OTHER, SELFPAY | PROVIDERS: PCP Internal Medicine; Visit Provider Internal Medicine | DX: Z00.00 Encounter for general adult medical examination without abnormal findings (principal); L21.9 Seborrheic dermatitis, unspecified; L29.9 Pruritus, unspecified; G35 Multiple sclerosis; F33.0 Major depressive disorder, recurrent, mild; D64.9 Anemia, unspecified; E55.9 Vitamin D deficiency, unspecified; E78.00 Pure hypercholesterolemia, unspecified; Z91.148 Patient's other noncompliance with medication regimen for other reason | CPT/HCPCS: 96127; 99212; 99396 ==

== ENCOUNTER 2025-05-24 09:38 | Observation (INO) | payer OTHER, SELFPAY ==
--- NOTE | 2025-05-24 | ECG_ITS ---
Test Reason : BRADICARDIA Blood Pressure : */* mmHG Vent. Rate : 50 BPM Atrial Rate : 50 BPM P-R Int : 136 ms QRS Dur : 78 ms QT Int : 448 ms P-R-T Axes : 71 21 53 degrees QTcB Int : 408 ms Sinus bradycardia Otherwise normal ECG When compared with ECG of 12-Oct-2021 20:55, No significant change was found Referred By: Generic ED Physician Electronically Signed By: CHACORTA ZHENG
--- NOTE | ~2025-05-24 | CT_ITS ---
CLINICAL HISTORY: lower abd pain CT abdomen and pelvis without contrast Comparison: None provided Findings: No consolidation or effusion. Gallbladder, liver, adrenal glands, pancreas and kidneys are unremarkable. No hydronephrosis. There has been previous gastric surgery. The appendix is normal in the right lower quadrant. In the region of the hepatic flexure and the descending colon there are areas of nondistended large bowel which appear to have moderate wall thickening over long segments, for example series 6, image 36 and series 6, image 60. No ascites. Uterus and adnexa are unremarkable. No acute fracture. IMPRESSION: Question long segment areas of colonic wall thickening suggesting infectious or inflammatory colitis versus underdistention artifact. This document has been electronically signed by: Juan Jose Martines MD on 05/24/2025 11:32:22
--- NOTE | ~2025-05-24 | XR_ITS ---
CLINICAL HISTORY: abdominal pain 1 view chest x-ray. Comparison: None Findings: The lungs are adequately expanded. No focal consolidation. No effusion or pneumothorax. Cardiac and mediastinal contours are within normal limits. No acute osseous abnormality. Chest port adequately positioned with tip within the upper SVC. No free air under the diaphragm. Impression: No acute process. This document has been electronically signed by: Chilango Camacho MD on 05/24/2025 10:48:55
[2025-05-24 09:48] VITALS: BP 100/43; BP 136/84; PULSE 46; PULSE 98; RESP 16; TEMP 36.8; O2SAT 100; O2SAT 98; BMI 31.3
--- NOTE | 2025-05-24 10:05 | ED.ABDPAIN ---
HPI - Abdominal Pain General Chief Complaint: Abdominal Pain Stated Complaint: LOWER ABD PAIN Time Seen by Provider: 05/24/25 09:56 Source: patient, EMS, old records reviewed and educational interpreter Mode of arrival: EMS Limitations: no limitations History of Present Illness ED Provider: DR. Rader HPI narrative: 54-year-old female brought in by ambulance for evaluation of lower abdominal pain a started 2 years ago but it has been worse unsteady for the last 3 days, pain is mostly in lower abdomen with no radiation associated with nausea, vomiting, patient reported to loose stool this morning with no diarrhea or blood. No fever, no chills, no dysuria, no frequency urination, no hematuria, no vaginal bleed, no vaginal discharge. Past surgical history significant for gastric bypass surgery. Patient is complaining of dizziness. Related Data Home Medications ?Medication ?Instructions ?Recorded ?Confirmed cannabis PO 04/07/23 05/15/25 simethicone 80 mg chewable tablet 160 mg PO BID 04/27/23 05/15/25 ursodiol 300 mg capsule 300 mg PO BID 04/27/23 05/15/25 baclofen 10 mg tablet 10 mg PO BEDTIME 05/15/25 05/15/25 ocrelizumab 30 mg/mL intravenous 300 mg IV Q2W 05/15/25 05/15/25 solution (Ocrevus) Previous Rx's ?Medication ?Instructions ?Recorded albuterol sulfate 2.5 mg/3 mL 2.5 mg (3 mL) inhalation Q4-6H PRN 09/07/22 (0.083 %) solution for nebulization shortness of breath or wheezing 30 days #75 mL nebulizers (AeroEclipse II #1 ea 09/07/22 Nebulizer) Ventolin HFA 90 mcg/actuation 2 puff inhalation Q6H PRN 08/25/23 aerosol inhaler (albuterol sulfate) shortness of breath or wheezing 30 days #8 grams magnesium oxide 400 mg PO BEDTIME #30 tabs 04/18/24 ketoconazole 2 % shampoo 1 appl topical 2XW 30 days #120 mL 05/27/24 selenium sulfide 2.3 % shampoo 1 appl topical QWEEK 30 days #180 05/27/24 mL triamcinolone acetonide 0.5 % 1 appl topical BID PRN rash 30 05/27/24 topical cream days #15 grams omeprazole 20 mg capsule,delayed 20 mg PO DAILY PRN heartburn 90 12/07/24 release days #90 caps cholecalciferol (vitamin D3) 1,250 1,250 mcg PO QWEEK #14 caps 03/03/25 mcg (50,000 unit) capsule fluoxetine 40 mg capsule 40 mg PO DAILY 90 days #90 caps 03/03/25 meclizine 25 mg tablet (Dramamine 25 mg PO BID PRN dizziness #30 tabs 03/07/25 (meclizine)) oxycodone 10 mg tablet 10 mg PO Q8H PRN pain 30 days #90 05/02/25 tabs fluocinolone acetonide oil 0.01 % 5 drp otic (ears) BID 7 days #20 mL 05/15/25 ear drops (DermOtic Oil) selenium sulfide 1 % shampoo 5 ml topical 2XW PRN scalp 05/15/25 (Dandruff Shampoo (selenium dermatitis 30 days #207 mL sulfide)) Allergies Allergy/AdvReac Type Severity Reaction Status Date / Time Iodinated Contrast Media (IV Allergy Severe ANAPHYLAXIS Verified 05/24/25 09:59 CONTRAST) aspirin (ASPIRIN) Allergy Intermediate ITCH, rash Verified 05/24/25 09:59 naproxen (From NAPROSYN) Allergy Intermediate ITCHINESS Verified 05/24/25 09:59 baclofen AdvReac Unknown Unknown Verified 05/24/25 09:59 bupropion AdvReac Unknown unknown Verified 05/24/25 09:59 memantine AdvReac Unknown unknown Verified 05/24/25 09:59 Review of Systems Review of Systems All other systems are reviewed and are negative Constitutional: Reports as per HPI and Reports no additional constitutional complaints Eyes: Reports as per HPI and Reports no additional eye complaints Reports system reviewed and no additional complaints, except as documented Cardiovascular: Reports as per HPI and Reports no additional cardiovascular complaints Respiratory: Reports as per HPI and Reports no additional respiratory complaints Gastrointestinal: Reports as per HPI and Reports no additional gastrointestinal complaints Genitourinary: Reports no additional female genitourinary complaints Musculoskeletal: Reports no additional musculoskeletal complaints Skin/Breast: Reports system reviewed and no additional complaints, except as docu Psychiatric: Reports no additional psychiatric complaints Endocrine: Reports no additional endocrine complaints Hematologic/Lymphatic: Reports no additional hematologic/lymphatic complaints Allergic/Immunologic: Reports no additional allergic/immunologic complaints Reports system reviewed and no additional complaints, except as documented and Reports Abnormal speech present [facility] Past Medical History Medical History Dizziness Cervicalgia Chronic migraine with aura Hypersomnia Insomnia Snoring Gait abnormality Cervicalgia Multiple sclerosis Hypovitaminosis D Mild recurrent major depression Abnormal EKG Bronchitis Morbid obesity Left leg pain Shortness of breath COVID-19 Microalbuminuria Multiple sclerosis Left ankle pain Lumbar degenerative disc disease Surgical History History of sleeve gastrectomy H/O colonoscopy S/P excision of ganglion cyst History of gastric surgery Family History Family History Father Prostate cancer Colon cancer Mother CAD (coronary artery disease) Son No problems noted. Son No problems noted. Son No problems noted. Daughter No problems noted. Social History Social History Housing: Apartment Alcohol intake: never Patient Tobacco Use Status: Never used Tobacco e-Cigarette/Vaping Use: Never Used Second Hand Smoke Exposure: No Advance Directives: No Advance Directives Information Provided: Yes service: No Current occupational status: disabled Cognitive needs: No Hearing needs: No Vision needs: No Physical Exam ED Vital Signs: Vital Signs - 24 hr 05/24/25 09:48 05/24/25 10:44 05/24/25 12:03 Temperature 98.2 F 97.2 F Pulse Rate 46 L 51 Pulse Rate [Monitor] 44 L Respiratory Rate 16 19 Blood Pressure 100/43 L 111/50 L Pulse Oximetry 100 98 Oxygen Delivery Method Room Air Room Air BMI result Body Mass Index 31.3 Vital signs have been reviewed and appear to be correct. Blood pressure elevated. Heart rate normal. Respiratory rate normal. Temperature normal. Oxygen saturation normal. Appearance: Alert. Oriented X3. No acute distress. Head: Normal external exam. Normocephalic. Atraumatic. No Kwok signs noted. No raccoon eyes noted Eyes: PERRLA. EOMI. Conjunctiva and sclera normal. Eyelids normal. ENT: TM's Normal. Pharynx normal. Uvula midline. Moist mucous membranes. No trismus noted. No drooling noted. No muffled voice noted. Neck: Normal inspection. Neck supple. FROM. No adenopathy. Thyroid Normal. No meningeal signs. No neck mass noted. CVS: Normal heart rate and rhythm. Heart sound normal. No murmurs noted. Pulses normal throughout. Respiratory: No respiratory distress. Painless inspiration. Breath sounds normal. No wheezes/rales/rhonchi noted. Chest nontender. No accessory muscle usage noted or decreased air movement noted. Abdomen: Soft and nontender. Bowel sounds normal in all 4 quadrants. No distention noted. No organomegaly noted. No visible injury noted. Back: No CVA tenderness. Full range of motion noted. Skin: Skin warm and dry. Normal skin color. Normal skin turgor. No rashes/lesions/lacerations noted. Extremities: No lower extremity edema. Extremities exhibit normal range of motion. Extremities nontender. Neuro: Oriented X 3. Cranial nerve exam: II-XII are grossly intact No motor deficit. No sensory deficit. Reflexes normal. Course Reevaluation(s) Reevaluation #1: using the educational interpreter patient is feeling lightheadedness and dizzy when she walks, patient is bradycardic, reviewing patient's medication no offending agent. Acute on chronic abdominal pain CT is showing Question long segment areas of colonic wall thickening suggesting infectious or inflammatory colitis versus underdistention artifact. Will admit for symptomatic bradycardia. Time: 13:29 Medical Decision Making Differential Diagnosis Differential Diagnoses: The differential diagnosis associated with the presentation includes ( Colitis, diverticulitis, kidney stone, pyelonephritis, UTI , ACS, electrolyte derangement, severe anemia, dysrhythmia, bradycardia.) Admission/Observation Consideration of admission/observation: Escalation of care including admission/observation considered Consult Healthcare Provider Management of the patient was discussed with: Hospitalist ( Dr. Shepard) Lab Data MDM Lab Attestation statement: I reviewed the patient's lab results. 05/24/25 10:16 05/24/25 10:16 Labs: Lab Results 05/24/25 05/24/25 Range/Units 10:16 11:59 WBC 8.6 (4.8-10.8) X10*3/uL RBC 3.79 L (4.20-5.50) X10*6/uL Hgb 11.6 L (12.0-16.0) g/dl Hct 34.1 L (37.0-47.0) % MCV 90.0 (80.0-98.0) fL MCH 30.6 (27.0-33.0) pg MCHC 34.0 (31.0-35.0) g/dl RDW 13.2 (11.0-16.0) % Plt Count 303 (160-400) X10*3/uL MPV 8.7 L (9.4-12.3) fL Immature Gran % (Auto) 0.2 (0.0-0.4) % Neut % (Auto) 72.2 (45-73) % Lymph % (Auto) 18.6 L (20-40) % [place] % (Auto) 6.5 (2-11) % Eos % (Auto) 2.1 (0-4) % Baso % (Auto) 0.4 (0-2) % Lymph # (Auto) 1.6 (1.2-4.9) X10*3/uL [place] # (Auto) 0.6 (0.1-1.2) X10*3/uL Eos # (Auto) 0.2 (0.0-0.4) X10*3/uL Baso # (Auto) 0.0 (0.0-0.2) X10*3/uL Abs Immat Gran (auto) 0.02 (0.00-0.03) X10*3/uL Absolute Neuts (auto) 6.2 (2.0-8.3) x10*3/uL Absolute Nucleated RBC 0.000 (0.0-0.012) X10*3/uL Nucleated RBC % (auto) 0.0 (0.0-0.2) /100WBC Sodium 143 (135-145) mmol/L Potassium 3.6 (3.3-5.1) mmol/L Chloride 110 H (96-108) mmol/L Carbon Dioxide 28 (22-29) mmol/L Anion Gap 9 L (12-20) BUN 11 (9-16) mg/dL Creatinine 0.56 (0.5-1.4) mg/dL Estim Creat Clear Calc 131.2 Estimated GFR > 60 Random Glucose 106 (60-115) mg/dL Calcium 8.8 (8.4-10.2) mg/dL Total Bilirubin 0.3 (0.0-1.0) mg/dL Direct Bilirubin 0.1 (0.0-0.5) mg/dL AST 32 H (5-31) U/L ALT 36 H (0-31) U/L Alkaline Phosphatase 63 (39-117) U/L Troponin I High Sens < 2.7 (<3.5-17.0) ng/L B-Natriuretic Peptide 50 (<100) pg/mL Total Protein 6.7 (6.5-8.0) g/dL Albumin 3.8 (3.5-5.0) g/dL Lipase 21 (8-78) U/L Urine Color Yellow Urine Appearance Clear Urine pH 6.5 (5.0-9.0) Ur Specific [place] 1.010 (1.005-1.025) Urine Protein Negative (Neg-Trace) mg/dL Urine Glucose (UA) Negative (Negative) mg/dL Urine Ketones Negative (Negative) mg/dL Urine Blood Negative (Negative) Urine Nitrite Negative (Negative) Ur Leukocyte Esterase Negative (Negative) Independent Interpretation I performed an independent interpretation of an: EKG ( Sinus bradycardia at 50 beats per minutes, normal intervals, no ST-T changes.) and CT Scan ( abdomen pelvis:Question long segment areas of colonic wall thickening suggesting infectious or inflammatory colitis versus underdistention artifact.) Radiology Impression Discussion of test interpretation with radiology: I have reviewed the radiologist's reading. Medications Administered Discontinued Medications Generic Name Dose Route Start Last Admin Trade Name Freq PRN Reason Stop Dose Admin Sodium Chloride 1,000 mls @ 999 mls/hr 05/24/25 10:02 05/24/25 12:32 Ns IV 05/24/25 11:02 Infused .Q1H1M ONE Infusion Discharge Plan Discharge Clinical Impression: Symptomatic sinus bradycardia, Chronic abdominal pain Patient Disposition: Admitted As Inpatient Print Language: Venezuelan
[2025-05-24] MEDS: 0.9 % Sodium Chloride 1,000 ML 999 ML IV (10:22)
[2025-05-24 10:24] LABS: MANUAL DIFF FLAG NO
[2025-05-24 10:25] LABS: Basophils Percent Auto 0.4 % (0-2); Eosinophils Absolute Auto 0.2 X10*3/uL (0.0-0.4); Eosinophils Percent Auto 2.1 % (0-4); Hematocrit 34.1 % (37.0-47.0); Hemoglobin 11.6 g/dl (12.0-16.0); Imm Gran Abs Auto 0.02 X10*3/uL (0.00-0.03); Imm Gran Pct Auto 0.2 % (0.0-0.4); Lymphocytes Absolute Auto 1.6 X10*3/uL (1.2-4.9); Lymphocytes Percent Auto 18.6 % (20-40); Mean Corpuscular Hemoglobin 30.6 pg (27.0-33.0); Mean Platelet Volume 8.7 fL (9.4-12.3); Monocytes Absolute Auto 0.6 X10*3/uL (0.1-1.2); Monocytes Percent Auto 6.5 % (2-11); Neutrophils Absolute Auto 6.2 x10*3/uL (2.0-8.3); Neutrophils Percent Auto 72.2 % (45-73); Platelet Count 303 X10*3/uL (160-400); Red Blood Count 3.79 X10*6/uL (4.20-5.50); Red Cell Distribution Width 13.2 % (11.0-16.0); White Blood Count 8.6 X10*3/uL (4.8-10.8)
[2025-05-24 10:40] LABS: Alanine Aminotransferase 36 U/L (0-31); Albumin Level 3.8 g/dL (3.5-5.0); Alkaline Phosphatase 63 U/L (39-117); Anion Gap 9 (12-20); Aspartate Amino Transferase 32 U/L (5-31); Bilirubin Direct 0.1 mg/dL (0.0-0.5); Bilirubin Total 0.3 mg/dL (0.0-1.0); Blood Urea Nitrogen 11 mg/dL (9-16); Calcium 8.8 mg/dL (8.4-10.2); Carbon Dioxide 28 mmol/L (22-29); Chloride 110 mmol/L (96-108); Creatinine Clr Calc Pharmacy 131.2; Estimated Glomerular Filt Rate > 60; Glucose Random 106 mg/dL (60-115); Lipase 21 U/L (8-78); Potassium 3.6 mmol/L (3.3-5.1); Sodium 143 mmol/L (135-145); Total Protein 6.7 g/dL (6.5-8.0)
[2025-05-24 10:44] VITALS: PULSE 44
[2025-05-24 10:46] LABS: B Type Natriuretic Peptide 50 pg/mL (<100)
[2025-05-24 10:49] LABS: Troponin-I High Sensitivity < 2.7 ng/L (<3.5-17.0)
--- NOTE | 2025-05-24 11:05 | PC.NURSE ---
Daughter Estefani ([phone]) Called to give a low down on situation. Pt calling daughter and telling her things that are not true. The daughter informed this RN that this is her normal behavior, and that she is noncompliant and does not cooperate with care. At this time pending results to come up with further plan. This RN told daughter we would call with results and plan once available.
[2025-05-24 12:03] VITALS: BP 111/50; PULSE 51; RESP 19; TEMP 36.2; O2SAT 98
[2025-05-24 12:14] LABS: Appearance Urine Clear; Color Urine Yellow; Glucose Urine UA Negative (Negative); Leukocyte Esterase Urine Negative (Negative); Nitrite Urine Negative (Negative); PH 6.5 (5.0-9.0); Urine Blood Negative (Negative); Urine Ketones Negative (Negative); Urine Protein Negative (Neg-Trace)
--- NOTE | 2025-05-24 12:58 | PC.NURSE ---
Pt yelling in room that she wants to leave because nobody has fed her, given her oxycodone or anything for anxiety; pt stating to conference interpreter that she will rip off everything and leave ; MD made aware; conference interpreter had to step away but will return so MD can talk with pt
--- NOTE | 2025-05-24 13:28 | PC.NURSE ---
MD at bedside with pole climber to speak with pt; it was explained by the MD that pt needs to be admitted for bradycardia and hypotension; pt crying, extremely anxious, has agreed to stay
--- NOTE | 2025-05-24 13:45 | PM.IMHP ---
History of Present Illness Date of Service: 05/24/25 Attending physician on admission: Mary Smith Chief Complaint: Abd pain Pt is a 54-year-old female with a PMH significant for?MS follows with Neurology at [facility], asthma, GERD, and chronic abdominal pain on chronic opioids who presents to the ED with?acute on chronic lower abdominal pain worsening x3-4 days. Pt reports has been experiencing abdominal pain for over a year that has gradually worsened and become constant a few months ago. Pain has been moderately well controlled with chronic opioids up until 3-4 days ago when pain increased. Reports some nausea without vomiting. No diarrhea. Also complains of intermittent lightheadedness and dizziness that occur at any time, at either rest or with standing and ambulation. Slight headache. V chronic leg weakness, at baseline. No chest pain/pressure, palpitations. Denies shortness or breath or difficulty breathing. In the ED pt was bradycardic as low as 44 and soft BP as low as 100/43. Labs were overall grossly unremarkable and around baseline for pt. Stable normocytic anemia. No leukocytosis. Renal function baseline. Very mild transaminitis, improved from prior. Negative troponin. Lipase WNL. UA negative for UTI. CXR showed no acute process. CT?of abdomen/pelvis with question of long segment areas of colonic wall thickening possible infectious or inflammatory colitis vs underdistention artifact. EKG demonstrated sinus bradycardia of 50 without evidence of ischemia. Pt was treated in the ED with IVF. Pt is admitted to the hospital under observation for treatment and further evaluation of bradycardia and abdominal pain. Review of Systems Review of Systems: Negative except for that which is stated in the HPI. [facility] Medical History Dizziness Cervicalgia Chronic migraine with aura Hypersomnia Insomnia Snoring Gait abnormality Cervicalgia Multiple sclerosis Hypovitaminosis D Mild recurrent major depression Abnormal EKG Bronchitis Morbid obesity Left leg pain Shortness of breath COVID-19 Microalbuminuria Multiple sclerosis Left ankle pain Lumbar degenerative disc disease Family History Father Prostate cancer Colon cancer Mother CAD (coronary artery disease) Son No problems noted. Son No problems noted. Son No problems noted. Daughter No problems noted. Surgical History History of sleeve gastrectomy H/O colonoscopy S/P excision of ganglion cyst History of gastric surgery Social History Housing: Apartment Alcohol intake: never Patient Tobacco Use Status: Never used Tobacco e-Cigarette/Vaping Use: Never Used Second Hand Smoke Exposure: No Currently Displaying Signs/Symptoms of Drug Intoxication Withdrawal: No Advance Directives: No Advance Directives Information Provided: Yes service: No Current occupational status: disabled Cognitive needs: No Hearing needs: No Vision needs: No Meds Allergies Allergy/AdvReac Type Severity Reaction Status Date / Time Iodinated Contrast Media (IV Allergy Severe ANAPHYLAXIS Verified 05/24/25 09:59 CONTRAST) aspirin (ASPIRIN) Allergy Intermediate ITCH, rash Verified 05/24/25 09:59 naproxen (From NAPROSYN) Allergy Intermediate ITCHINESS Verified 05/24/25 09:59 baclofen AdvReac Unknown Unknown Verified 05/24/25 09:59 bupropion AdvReac Unknown unknown Verified 05/24/25 09:59 memantine AdvReac Unknown unknown Verified 05/24/25 09:59 Home Medications ?Medication ?Instructions ?Recorded ?Confirmed ?Last Taken ?Type atorvastatin 20 mg tablet 20 mg PO Q3D 05/24/25 05/24/25 05/20/25 History cholecalciferol (vitamin D3) 1,250 1,250 mcg PO TU 05/24/25 05/24/25 05/20/25 History mcg (50,000 unit) capsule multivitamin 1 tab PO DAILY 05/24/25 05/24/25 Unknown History ocrelizumab 30 mg/mL intravenous 600 mg IV [id number] 05/24/25 05/24/25 Unknown History solution (Ocrevus) Physical Exam Vital Signs and Narrative: Vital Signs: Last Vital Signs Temp 97.2 F 05/24/25 12:03 Pulse 51 05/24/25 12:03 Resp 19 05/24/25 12:03 BP 111/50 L 05/24/25 12:03 Pulse Ox 98 05/24/25 12:03 O2 Del Method Room Air 05/24/25 12:03 BMI result Body Mass Index 31.3 General: AOx3, no acute distress Resp: CTA bilaterally CVS: S1, S2, RRR GI: +BS, NT, no distention Skin: Warm, dry Neuro: Cranial nerves II-XII grossly intact bilaterally. Motor grossly intact bilaterally. Lower extremity 2/5 strength, R>L Extremities: No edema Psych: Appropriate affect Results Labs 05/24/25 10:16 05/24/25 10:16 Labs: Laboratory Results - last 24 hr 05/24/25 05/24/25 10:16 11:59 MCV 90.0 MCH 30.6 MCHC 34.0 RDW 13.2 Plt Count 303 MPV 8.7 L Immature Gran % (Auto) 0.2 Neut % (Auto) 72.2 Lymph % (Auto) 18.6 L [place] % (Auto) 6.5 Eos % (Auto) 2.1 Baso % (Auto) 0.4 Lymph # (Auto) 1.6 [place] # (Auto) 0.6 Eos # (Auto) 0.2 Baso # (Auto) 0.0 Abs Immat Gran (auto) 0.02 Absolute Neuts (auto) 6.2 Absolute Nucleated RBC 0.000 Nucleated RBC % (auto) 0.0 Anion Gap 9 L Estim Creat Clear Calc 131.2 Estimated GFR > 60 Random Glucose 106 Calcium 8.8 Total Bilirubin 0.3 Direct Bilirubin 0.1 AST 32 H ALT 36 H Alkaline Phosphatase 63 Troponin I High Sens < 2.7 B-Natriuretic Peptide 50 Total Protein 6.7 Albumin 3.8 Lipase 21 Urine Color Yellow Urine Appearance Clear Urine pH 6.5 Ur Specific [place] 1.010 Urine Protein Negative Urine Glucose (UA) Negative Urine Ketones Negative Urine Blood Negative Urine Nitrite Negative Ur Leukocyte Esterase Negative Assessment and Plan (1) Abdominal pain: Status: Acute (2) Bradycardia: Status: Acute Plan Pt is a 54-year-old female with a PMH significant for?MS follows with Neurology at [facility], asthma, GERD, and chronic abdominal pain on chronic opioids who presents to the ED with?acute on chronic lower abdominal pain worsening x3-4 days. Pt is admitted to the hospital under observation for treatment and further evaluation of bradycardia and abdominal pain. Bradycardia Pt with HR as low as 44, currently in the 50-60s Unclear if symptomatic: reports some lightheadedness and dizziness Unclear etiology: Not on BB or other rate-lowering meds; bradycardia not a know side effect of ocrelizumab ?secondary to autonomic dysfunction from MS Check TSH Monitor on telemetry Will hold on cardiology consult and echo for now pending overnight telemetry Abdominal pain Chronic for past 1-2 years though worsening past few days Some nausea but no vomiting or diarrhea CT with question of colonic wall thickening Stool studies if develops diarrhea Otherwise symptomatic treatment with chronic opioids MS Not in acute flare; reports is at baseline Continue ocrelizumab outpatient Follow up outpatient with [facility] neurology HLD Continue statin MDD Continue fluoxetine Full Code Attending:?Dr. Shepard DVT Prophylaxis: Lovenox Pt will be admitted to the hospital under observation for close monitoring of bradycardia on cardiac telemetry, and symptomatic treatment for abdominal pain. Quality Stroke Does the patient have a stroke diagnosis?: No VTE Prior VTE?: No VTE Risk Level:: Medical - moderate - high VTE Device Contraindication: Treatment Not Indicated VTE Drug Contraindication: N/A - Med Ordered
[2025-05-24 15:17] LABS: TSH reflex Free T4 0.48 uIU/mL (0.32-4.0)
[2025-05-24] MEDS: Enoxaparin Sodium 40 MG/0.4 ML SYRINGE SUBCUT (16:04)
[2025-05-24] MEDS: 0.9 % Sodium Chloride Flush 3 ML SYRINGE IVFLUSH ×2 (16:05→20:28)
[2025-05-24] MEDS: oxyCODONE HCl Immed Release 5 MG TABLET 10 MG PO (17:10)
--- NOTE | 2025-05-24 17:29 | PHA.MEDREC ---
Addendum entered by Sailaja Boston RPh 05/24/25 17:42: Reviewed by [facility] Original Note: Pharmacy Consult ? Medication Reconciliation Pharmacy has completed the medication reconciliation. Spoke with patient to confirm medications through an rate analyst. She takes vitamin D on Tuesdays, had last Monday. She takes omeprazole and meclizine prn. She does not use tizanidine, she does not want to use it while taking oxycodone. She takes atorvastatin every 3 days, last had on Monday. Patient reports being on Ocrevus every 6 months. Unable to confirm dose and not on claims, patient reports she took >1 month ago. She said she is NOT on Tysabri.
[2025-05-24 18:37] VITALS: BP 113/62; PULSE 55; RESP 16; TEMP 36.2; O2SAT 98
[2025-05-24 19:20] VITALS: BP 123/50; PULSE 45; RESP 20; TEMP 36.3; O2SAT 100
[2025-05-24] MEDS: Atorvastatin Calcium 20 MG TABLET PO (20:28)
[2025-05-24 23:55] VITALS: BP 127/61; PULSE 58; RESP 18; TEMP 36.5; O2SAT 98
[2025-05-25 03:44] VITALS: BP 102/56; PULSE 51; RESP 18; TEMP 36.9; O2SAT 99
[2025-05-25 07:20] VITALS: BP 115/53; PULSE 55; RESP 18; TEMP 36; O2SAT 100
[2025-05-25] MEDS: FLUoxetine HCl 20 MG CAPSULE 40 MG PO (10:04)
[2025-05-25] MEDS: 0.9 % Sodium Chloride Flush 3 ML SYRINGE IVFLUSH (10:04)
[2025-05-25] MEDS: Multivitamin TABLET 1 TAB PO (10:04)
[2025-05-25] MEDS: oxyCODONE HCl Immed Release 5 MG TABLET 10 MG PO (10:07)
[2025-05-25 11:20] VITALS: BP 117/58; PULSE 58; RESP 18; TEMP 36.1; O2SAT 100
--- NOTE | 2025-05-25 11:22 | P.DS_ITS ---
DS: Providers Provider Date of Service: 05/25/25 Date of admission: 05/24/25 14:46 Date of discharge: 05/25/25 Primary care physician: Palmira Sutton MD DS: Diagnosis Discharge Diagnosis (1) Abdominal pain: Status: Acute (2) Sinus bradycardia: Status: Acute DS: Summary Hospital Course Hospital Course: From the history and physical by the admitting hospitalist, GITA Frias, 05/24/25: Pt is a 54-year-old female with a PMH significant for?MS follows with Neurology at [facility] [place], asthma, GERD, and chronic abdominal pain on chronic opioids who presents to the ED with?acute on chronic lower abdominal pain worsening x3-4 days. Pt reports has been experiencing abdominal pain for over a year that has gradually worsened and become constant a few months ago. Pain has been moderately well controlled with chronic opioids up until 3-4 days ago when pain increased. Reports some nausea without vomiting. No diarrhea. Also complains of intermittent lightheadedness and dizziness that occur at any time, at either rest or with standing and ambulation. Slight headache. V chronic leg weakness, at baseline. No chest pain/pressure, palpitations. Denies shortness or breath or difficulty breathing. In the ED pt was bradycardic as low as 44 and soft BP as low as 100/43. Labs were overall grossly unremarkable and around baseline for pt. Stable normocytic anemia. No leukocytosis. Renal function baseline. Very mild transaminitis, improved from prior. Negative troponin. Lipase WNL. UA negative for UTI. CXR showed no acute process. CT?of abdomen/pelvis with question of long segment are as of colonic wall thickening possible infectious or inflammatory colitis vs underdistention artifact. EKG demonstrated sinus bradycardia of 50 without evidence of ischemia. Pt was treated in the ED with IVF. Pt is admitted to the hospital under observation for treatment and further evaluation of bradycardia and abdominal pain. She was admitted to the telemetry unit. She remained in sinus rhythm with rate at rest ranging from the mid 40s to the upper 60s. No heart block identified. Abdominal pain improved and she did not have any diarrhea. She denied any lightheadedness during hospitalization and was able to ambulate at her baseline level of functioning with appropriate increase in heart rate. No further workup is indicated at this point and she was discharged home to follow up with her primary care doctor and neurologist. Time Attestation Discharge Coordination Time (in mins): 35 Quality: Safe Use of Opioids Does Pt have an Active Cancer Diagnosis on the Problem List?: No Quality: Stroke Does the patient have a stroke diagnosis?: No Physical Exam Vital Signs: Vital Signs: Last Vital Signs Temp 96.9 F 05/25/25 11:20 Pulse 58 05/25/25 11:20 Resp 18 05/25/25 11:20 BP 117/58 L 05/25/25 11:20 Pulse Ox 100 05/25/25 11:20 O2 Del Method Room Air 05/25/25 11:20 BMI result Body Mass Index 31.3 Gen: in no acute distress HEENT: sclera anicteric, moist mucus membranes Neck: supple Lungs: clear to auscultation bilaterally Heart: regular, slightly slow, no murmurs Abd: soft, non-tender, non-distended Ext: no edema Skin: warm/well-perfused Neuro: alert and oriented x3, chronically diminished strength in lower extremities, ambulates with walker Psych: appropriate affect DS: Data Data Completed and Pending Completed studies during hospitalization [Text1]: Laboratory Results WBC 8.6 X10*3/uL (4.8-10.8) 05/24/25 10:16 RBC 3.79 X10*6/uL (4.20-5.50) L 05/24/25 10:16 Hgb 11.6 g/dl (12.0-16.0) L 05/24/25 10:16 Hct 34.1 % (37.0-47.0) L 05/24/25 10:16 MCV 90.0 fL (80.0-98.0) 05/24/25 10:16 MCH 30.6 pg (27.0-33.0) 05/24/25 10:16 MCHC 34.0 g/dl (31.0-35.0) 05/24/25 10:16 RDW 13.2 % (11.0-16.0) 05/24/25 10:16 Plt Count 303 X10*3/uL (160-400) 05/24/25 10:16 MPV 8.7 fL (9.4-12.3) L 05/24/25 10:16 Immature Gran % (Auto) 0.2 % (0.0-0.4) 05/24/25 10:16 Neut % (Auto) 72.2 % (45-73) 05/24/25 10:16 Lymph % (Auto) 18.6 % (20-40) L 05/24/25 10:16 [place] % (Auto) 6.5 % (2-11) 05/24/25 10:16 Eos % (Auto) 2.1 % (0-4) 05/24/25 10:16 Baso % (Auto) 0.4 % (0-2) 05/24/25 10:16 Lymph # (Auto) 1.6 X10*3/uL (1.2-4.9) 05/24/25 10:16 [place] # (Auto) 0.6 X10*3/uL (0.1-1.2) 05/24/25 10:16 Eos # (Auto) 0.2 X10*3/uL (0.0-0.4) 05/24/25 10:16 Baso # (Auto) 0.0 X10*3/uL (0.0-0.2) 05/24/25 10:16 Abs Immat Gran (auto) 0.02 X10*3/uL (0.00-0.03) 05/24/25 10:16 Absolute Neuts (auto) 6.2 x10*3/uL (2.0-8.3) 05/24/25 10:16 Absolute Nucleated RBC 0.000 X10*3/uL (0.0-0.012) 05/24/25 10:16 Nucleated RBC % (auto) 0.0 /100WBC (0.0-0.2) 05/24/25 10:16 Sodium 143 mmol/L (135-145) 05/24/25 10:16 Potassium 3.6 mmol/L (3.3-5.1) 05/24/25 10:16 Chloride 110 mmol/L (96-108) H 05/24/25 10:16 Carbon Dioxide 28 mmol/L (22-29) 05/24/25 10:16 Anion Gap 9 (12-20) L 05/24/25 10:16 BUN 11 mg/dL (9-16) 05/24/25 10:16 Creatinine 0.56 mg/dL (0.5-1.4) 05/24/25 10:16 Estim Creat Clear Calc 131.2 05/24/25 10:16 Estimated GFR > 60 05/24/25 10:16 Random Glucose 106 mg/dL (60-115) 05/24/25 10:16 Calcium 8.8 mg/dL (8.4-10.2) 05/24/25 10:16 Total Bilirubin 0.3 mg/dL (0.0-1.0) 05/24/25 10:16 Direct Bilirubin 0.1 mg/dL (0.0-0.5) 05/24/25 10:16 AST 32 U/L (5-31) H 05/24/25 10:16 ALT 36 U/L (0-31) H 05/24/25 10:16 Alkaline Phosphatase 63 U/L (39-117) 05/24/25 10:16 Troponin I High Sens < 2.7 ng/L (<3.5-17.0) 05/24/25 10:16 B-Natriuretic Peptide 50 pg/mL (<100) 05/24/25 10:16 Total Protein 6.7 g/dL (6.5-8.0) 05/24/25 10:16 Albumin 3.8 g/dL (3.5-5.0) 05/24/25 10:16 Lipase 21 U/L (8-78) 05/24/25 10:16 TSH 0.48 uIU/mL (0.32-4.0) 05/24/25 10:16 Urine Color Yellow 05/24/25 11:59 Urine Appearance Clear 05/24/25 11:59 Urine pH 6.5 (5.0-9.0) 05/24/25 11:59 Ur Specific [place] 1.010 (1.005-1.025) 05/24/25 11:59 Urine Protein Negative mg/dL (Neg-Trace) 05/24/25 11:59 Urine Glucose (UA) Negative mg/dL (Negative) 05/24/25 11:59 Urine Ketones Negative mg/dL (Negative) 05/24/25 11:59 Urine Blood Negative (Negative) 05/24/25 11:59 Urine Nitrite Negative (Negative) 05/24/25 11:59 Ur Leukocyte Esterase Negative (Negative) 05/24/25 11:59 Discharge Plan Discharge Anticipated Discharge Date/Time: 05/25/25 11:19 Patient Disposition: Home, Self-Care Discharge Diagnosis: sinus bradycardia sciatica chronic abdominal pain Referrals: Palmira Gonzalez MD [Primary Care Provider, Internal Medicine] - 1 Week Discharge Medications: Continued (DME) AeroEclipse II Nebulizer Misc See Rx Instructions .ROUTE .MEDSUPPLY Qty: 1 0RF Rx Instructions: As directed omeprazole 20 mg capsule,delayed release(DR/EC) 20 mg PO DAILY PRN (Reason: heartburn) 90 Days Qty: 90 1RF fluoxetine 40 mg capsule 40 mg PO DAILY 90 Days Qty: 90 1RF oxycodone 10 mg tablet 10 mg PO Q8H PRN (Reason: pain) 30 Days Qty: 90 0RF multivitamin Tablet 1 tab PO DAILY atorvastatin 20 mg tablet 20 mg PO Q3D Ocrevus 30 mg/mL Solution 600 mg IV [id number] Patient Comments: Patient reports she last had >1 month ago cholecalciferol (vitamin D3) 1,250 mcg (50,000 unit) capsule 1,250 mcg PO TU meclizine [Dramamine (meclizine)] 25 mg tablet 25 mg PO BID PRN (Reason: dizziness) Qty: 30 0RF Discharge Orders: Discharge Order (Routine); Ordered 05/25/25 Ordered By: Panfilo Shepard Diet: Advance to usual diet Activity on Discharge: As tolerated Stand Alone Forms: Patient Portal Discharge page Print Language: Guyanese Care Plan Goals: ongoing MS care Health Concerns: sinus bradycardia sciatica chronic abdominal pain Plan of Treatment: resume home medications Please follow up with your primary care doctor within 1 week. Return to the hospital if you experience recurrent or worsening symptoms. Assessment: See Discharge Summary.
== END 2025-05-25 13:09 | disposition home or self-care (01) ==
LOC: HO.ED 13:33 → HO.EDOVER 14:47 → HO.IMC 16:52
PROVIDERS: Admitting Provider Student in an Organized Health Care Education/Training Program; Emergency Provider Emergency Medicine; PCP Internal Medicine; Visit Provider Family Medicine
DX: R10.30 Lower abdominal pain, unspecified (principal); M54.30 Sciatica, unspecified side; R00.1 Bradycardia, unspecified; R11.2 Nausea with vomiting, unspecified; D50.8 Other iron deficiency anemias; G35 Multiple sclerosis; E78.5 Hyperlipidemia, unspecified; Z79.899 Other long term (current) drug therapy
CPT/HCPCS: 36415; 71045; 74176; 80048; 80076; 81003; 83690; 83880; 84443; 84484; 85025; 93005; 96360; 96361; 96372; 99222; 99285; J1650

== ENCOUNTER → 2025-05-24 09:57 | Outpatient (BNV) | payer OTHER, SELFPAY | PROVIDERS: Admitting Provider Student in an Organized Health Care Education/Training Program; Emergency Provider Emergency Medicine; PCP Internal Medicine; Visit Provider Internal Medicine | DX: R00.1 Bradycardia, unspecified (principal) | CPT/HCPCS: 93010 ==

== ENCOUNTER → 2025-05-24 10:02 | Outpatient (BNV) | payer OTHER, SELFPAY | PROVIDERS: Emergency Provider Emergency Medicine; PCP Internal Medicine; Visit Provider Radiology Vascular & Interventional Radiology | DX: R10.30 Lower abdominal pain, unspecified (principal); R10.9 Unspecified abdominal pain | CPT/HCPCS: 71045; 74176 ==

== ENCOUNTER → 2025-05-24 14:46 | Outpatient (BNV) | payer OTHER, SELFPAY | PROVIDERS: Admitting Provider Student in an Organized Health Care Education/Training Program; Emergency Provider Emergency Medicine; PCP Internal Medicine; Visit Provider Student in an Organized Health Care Education/Training Program | DX: R10.9 Unspecified abdominal pain (principal); R00.1 Bradycardia, unspecified | CPT/HCPCS: 99222; 99239 ==